=== PATIENT | female | born 1950 | race Caucasian/White ===

== ENCOUNTER 2016-12-13 12:11 | Inpatient (IN) | payer MEDICARE, MEDICAID ==
[2016-12-13] VITALS (25 sets, daily range): BP systolic 74–137; BP diastolic 36–109; PULSE 109–128; RESP 14–37; O2SAT 91–100
[~2016-12-13] VITALS: Ht 157.5 cm; Wt 72.5 kg
[~2016-12-13 12:11] MED LIST: ACET325T46 PO; ACET325T51 PO; ALBU8.5H2 IH; BISA10SU9 RC; BISA5TAB8 PO; CALC-766 PO; DIPH-464 PO; IBUP-1827 PO; LAMO200T2 PO; LOPE2CAP PO; LORA0.5T PO; MAGN250T37 PO; MAGN400O4 PO; MONT10TA23 PO; OMEP-113 PO; OXYC1TAB24 PO; PRA20 PO; PRAZ1CAP2 PO; RISP2TAB3 PO; SENN8.6T17 PO; TOPI50TA88 PO; TRAZ-118 PO; VENL150C PO; VENL75CA PO
--- NOTE | 2016-12-13 12:22 | ED.REPORT ---
HPI-Chest Pain 40 and Over Date of Service Dec 13, 2016 ED Provider: Noe Vanegas MD Patient is a 66 year old female with a hx of DM who presents to the ED via EMS from [facility] for sudden onset back pain this afternoon. This was followed by chest pain, nausea, and diaphoresis. Nursing staff state the pt went pale and had a bp of 100. When EMS arrived, she was tachycardic and still pale. She was given ASA and nitro x2 with relief. Patient denies abdominal pain , cough, vomiting, or any other symptoms. Pt is a difficult historian. Nursing Notes Stated Complaint: CHEST PAIN Nursing Notes Reviewed: Yes Allergies: Coded Allergies: Nut Tree (Verified Allergy, Unknown, 12/13/16) amitriptyline (Verified Allergy, Unknown, 12/13/16) codeine (Verified Allergy, Unknown, 12/13/16) egg (Verified Allergy, Unknown, 12/13/16) erythromycin base (Verified Allergy, Unknown, 12/13/16) fluticasone (Verified Allergy, Unknown, 12/13/16) lithium (Verified Allergy, Unknown, 12/13/16) salmeterol (Verified Allergy, Unknown, 12/13/16) sumatriptan (Verified Allergy, Unknown, 12/13/16) Scheduled Amlodipine (Amlodipine) 5 Mg Tablet 5 MG PO QAM Lamotrigine (Lamotrigine) 200 Mg Tablet 200 MG PO QAM Lorazepam (Lorazepam) 0.5 Mg Tablet 0.5 MG PO BIDWM Meloxicam (Meloxicam) 7.5 Mg Tablet 7.5 MG PO DAILYWM Montelukast (Montelukast) 10 Mg Tablet 10 MG PO DAILYWD Omeprazole (Omeprazole) 20 Mg Capsule.dr 20 MG PO QAM Oxybutynin Chloride (Oxybutynin Chloride) 5 Mg Tablet 5 MG PO DAILYWD Pravastatin (Pravachol) 20 Mg Tab 20 MG PO DAILYWD Prazosin (Prazosin) 1 Mg Capsule 1 MG PO DAILYWD Risperidone (Risperidone) 2 Mg Tablet 2 MG PO DAILYWD Topiramate (Topiramate) 50 Mg Tablet 50 MG PO BIDWM Trazodone (Trazodone) 100 Mg Tablet 200 MG PO HS Venlafaxine ER (Effexor XR) 75 Mg Cap.er.24h 75 MG PO QAM TAKE WITH 150 MG CAP Venlafaxine ER (Effexor XR) 150 Mg Cap.er.24h 150 MG PO QAM TAKEN WITH 75 MG CAP Scheduled PRN Acetaminophen (Acetaminophen) 325 Mg Tablet 325-650 MG PO Q4 PRN PRN For Pain Albuterol HFA (Proair HFA) 8.5 Gm Hfa.aer.ad 2 PUFFS IH Q4 PRN PRN For Shortness of Breath Aspirin/Acetaminophen/Caffeine (Bccizwq-Puighpyajsmka-Ysmt Tab) 250 Mg-250 Mg- 65 Mg Tablet 1 EACH PO Q6H PRN PRN For Headache Calcium Carbonate (Tums) 500 Mg Tab.chew 1,000 MG PO Q4H PRN PRN For Dyspepsia or Heartburn Docusate Sodium (Colace) 100 Mg Capsule 100 MG PO HS PRN PRN For Constipation Loperamide (Loperamide) 2 Mg Capsule 2 MG PO Q4 PRN PRN For Diarrhea or Loose Stool Prochlorperazine Maleate (Prochlorperazine) 10 Mg Tablet 10 MG PO Q12H PRN PRN For Nausea/Vomiting Sennosides (Senna) 8.6 Mg Tablet 8.6 MG PO DAILY PRN PRN For Constipation diphenhydrAMINE HCl (Benadryl) 25 Mg Capsule 50 MG PO DIRECTED PRN PRN PEANUT EXPOSURE oxyCODONE-Acetaminophen 5-325 mg (oxyCODONE-Acetaminophen 5-325 mg) 1 Each Tablet 0.5-1 TAB PO Q8H PRN PRN For Pain General Time Seen by MD: 12:21 Chief Complaint Back pain Hx Obtained From: Patient, EMS Arrived By: Ambulance Sudden in Onset?: Yes Onset Occurred: Just prior to arrival Symptom Duration: Since onset Similar Sx Previous: No Risk Factors )( CAD Risk Stratification Diabetes mellitus Hypertension Risk factors reviewed )( TAD Risk Stratification HypertensionNo Risk factors reviewed )( PE Risk Stratification No , No Previous DVT, No Previous PE Risk factors reviewed Past Medical History Past Medical History Anxiety Bipolar disorder PTSD Hypertension/Hypotension -- pt not on any blood pressure meds Hip bursisits Tension headaches/migraines Chronic pain syndrome depression Reports: Asthma, Diabetes mellitus Past Surgical History none reported Smoking History Unknown if Ever Smoker Social History Other Social History: Ambulatory Status Independent Review of Systems Respiratory: Denies: Non-productive cough Cardiovascular: Reports: Chest pain GI: Reports: Nausea, Denies: Abdominal pain, Vomiting Musculoskeletal: Reports: Back pain Skin: Reports Diaphoresis Complete sys rev & neg: except as marked. Physical Exam Initial Vital Signs Vital Signs (First) Date Time Temp Pulse Resp B/P Pulse Ox O2 Delivery O2 Flow Rate FiO2 12/13/16 12:26 39.6 115 28 137/64 98 Room Air Initial VS: Reviewed, Vital signs abnormal Head / Eyes: Atraumatic, Normocephalic Neck: Full range of motion Skin: Warm, Dry Neurologic: Alert, Oriented, Nonfocal Psychiatric: Behavior normal General/Constitutional: Awake, Alert Respiratory / Chest: Atraumatic, Breath sounds NL, Breath sounds = bilat, No respiratory distress Heart Rate / Rhythm: Positive: Tachycardia Holosystolic murmur at L upper sternal border Abdomen: Atraumatic, Soft, Non-tender Interpretation & Diagnostics Lab Results Interpretation Result Diagram: 12/13/16 1225 12/13/16 1225 Test 12/13/16 12:25 12/13/16 12:50 12/13/16 14:30 White Blood Count 3.5th/mm3 (3.8-10.1) Red Blood Count 3.88mil/mm3 (3.90-5.20) Hemoglobin 11.8g/dL (12.0-15.6) Hematocrit 35.2% (35.0-46.0) Mean Corpuscular Volume 90.7fL (81-100) Mean Corpuscular Hemoglobin 30.4pg (27.0-35.0) Mean Corpuscular Hemoglobin Concent 33.5% (32.0-37.0) Red Cell Distribution Width 12.7% (12.3-15.4) Platelet Count 106bil/L (150-400) Neutrophils (%) (Auto) 48% (40-74) Lymphocytes (%) (Auto) 20% (14-46) Monocytes (%) (Auto) 1% (4-12) Eosinophils (%) (Auto) 0% (0-5) Basophils (%) (Auto) 0% (0-3) Band Neutrophils % 31% (1-5) Prothrombin Time 10.8sec (8.1-12.5) Prothromb Time International Ratio 1.01ratio Sodium Level 142mEq/L (134-144) Potassium Level 3.9mEq/L (3.5-5.2) Chloride Level 102mEq/L (97-108) Carbon Dioxide Level 16mmol/L (18-29) Blood Urea Nitrogen 35mg/dL (8-27) Creatinine 1.85mg/dL (0.57-1.00) Estimat Glomerular Filtration Rate 39mL/min (>59) Glucose Level 171mg/dL (60-99) Calcium Level 10.0mg/dL (8.5-10.1) Magnesium Level 1.6mg/dL (1.6-2.6) Total Bilirubin 0.5mg/dL (0.0-1.2) Aspartate Amino Transf (AST/SGOT) 104U/L (0-50) Alanine Aminotransferase (ALT/SGPT) 121U/L (0-32) Alkaline Phosphatase 151U/L (25-165) Troponin T < 0.010ug/L (0.0-0.011) Pro-B-Type Natriuretic Peptide 3261pg/mL (0-301) Total Protein 7.8g/dL (6.4-8.4) Albumin 4.1g/dL (3.4-5.0) Lipase 20U/L (13-60) Hold Joel Top Tube Received (Received) Procalcitonin 128.82ng/mL (0.00-0.08) Urine Color Dark yellow (YELLOW) Urine Appearance Hazy (CLEAR,HAZY) Urine pH 6.0 (5.0-8.0) Urine Specific [place] 1.010 (1.003-1.035) Urine Protein 30mg/dL (NEG,TRACE) Urine Glucose (UA) Negativemg/dL (NEGATIVE) Urine Ketones Negativemg/dL (NEGATIVE) Urine Occult Blood Large (NEGATIVE) Urine Nitrite Positive (NEGATIVE) Urine Bilirubin Negative (NEGATIVE) Urine Urobilinogen Normalmg/dL (NORMAL) Urine Leukocyte Esterase Small (NEGATIVE) Urine RBC 11-50/hpf (0-2) Urine WBC 11-50/hpf (0-5) Urine Epithelial Cells Occasional/hpf (NONE-MOD) Urine Crystals None seen (NONE SEEN) Urine Bacteria Many/hpf (NONE-FEW) Urine Hyaline Casts None/lpf (NONE) Urine Granular Casts None seen (NONE SEEN) Urine Waxy Casts None seen (NONE SEEN) Urine Red Blood Cell Casts None seen (NONE SEEN) Urine White Blood Cell Casts None seen (NONE SEEN) Urine Mucus Present (None Seen) Urine Trichomonas None seen (NONE SEEN) Urine Yeast None (NONE SEEN) Urinalysis Comment None Urine Culture Reflexed Indicated ECG Interpretation ECG Interpretation: sinus tachy rate 117 RBBB poor quality no clear ST, T changes T wave inversions in V1 and V2 T wave inversions in V1 on prior Time: 12:25 Interpreted by: ED physician X-Ray Chest Interpretation Chest Xray Interpretation: IMPRESSION: No acute disease. Dictated by: Kelvin Flynn M.D. on 12/13/2016 at 12:16 Approved by: Kelvin Flynn M.D. on 12/13/2016 at 12:17 View: Portable, 1 view Interpretation / Wet Read by: Interpret - Radiologist CT Chest Interpretation IMPRESSION: 1. Obstructive right ureterolithiasis with moderate to severe right hydronephrosis and perinephric fat stranding consistent with calyceal rupture. This finding was discussed with Dr. Prasad Valente at 1:50 PM on 12/13/16. 2. No aortic dissection or aneurysmal dilatation. 3. No central pulmonary embolus. 4. Fluid and gas-filled esophagus which may be associated with reflux or lower esophageal sphincter dysfunction. 5. Bilateral nonobstructing nephrolithiasis. Dictated by: Anu Luevano M.D. on 12/13/2016 at 13:42 Approved by: Anu Luevano M.D. on 12/13/2016 at 14:01 Study type: CT pulm angiogram Interpretation / Wet Read by: Interpret - Radiologist, Milagro w radiologist Re-Eval/Medical Decision Med Decision/Clinical Course 66-year-old female presenting from [facility] with back pain radiating to her chest which reportedly resolved with nitroglycerin. Poor historian. CT angio chest abdomen was performed given her tachycardia and her chest pain which showed no evidence of PE or dissection though she does have a 4 mm right-sided ureteral stone with moderate to severe hydronephrosis. She also has UTI and is septic. She will be admitted to the hospital for infected kidney stone. Urology to see and take to the OR for cystoscopy and stent placement. Zosyn given. 2 L normal saline given. Admitted to hospitalist service. Time of Eval: 14:02 Re-Evaluation/Progress Note: Rechecked pt. Discussed plan for admission. Patient understands and agrees with plan. All questions addressed at this time. Consultation #1: Referral / Consult Name: Kev Pittman MD Consulted With: Cardiology Call Returned at: 14:08 Note: Discussed pt's case. Does not need to be admitted from cardiology standpoint. Consultation #2: Referral / Consult Name: Dale Morales MD Consulted With: Urology Call Returned at: 14:45 Motion Picture Photographer: Will see patient, Agrees with eval, Agrees with plan Note: Discussed pt's case. Start Zosyn and keep NPO. Counseled Regarding: Diagnosis, Lab results, Need for admission Discharge & Departure Primary Impression: Sepsis Additional Impressions: Kidney stone UTI (urinary tract infection) Urinary tract infection type: site unspecified Hematuria presence: without hematuria Qualified Code: N39.0 - Urinary tract infection, site not specified Disposition: ADMITTED TO HOSPITAL Discharge Condition All VS Reviewed: Yes Condition: Stable Referrals: Zackary Hunter MD (PCP) Crit Care Except Billable Proc Time Spent: 30-74 minutes Services Performed: Patient management by me, Time spent at bedside, Reviewing test results, Reviewing imaging, Discussing patient care, Documentation in record Critical Care Notes: 35 minutes Scribe Attestation Portions of this note were transcribed by Nata Teague. I, Dr. Vanegas personally performed the history, physical exam and medical decision-making; I reviewed and confirmed the accuracy of the information in the transcribed note. Signed by: Marimar Gonzalez, 12/13/16 copies to: Zackary Hunter MD, Ben M MD Dec 13, 2016 12:22 NATA TEAGUE Dec 13, 2016 12:31
[2016-12-13] MEDS ORDERED: 0.9% Sodium Chloride 1,000 ML IV ONE (12:29)
[2016-12-13] MEDS ORDERED: Ondansetron 2 mg/mL 2 mL Inj IVPUSH ONE (12:30)
[2016-12-13 12:54] LABS: BASOPHILS % (AUTO) 0 % (0-3); Mean Corpuscular Hemoglobin 30.4 pg (27.0-35.0); Mean Corpuscular Volume 90.7 fL (81-100); Platelet Count 106 bil/L (150-400)
[2016-12-13 12:59] LABS: INR 1.01 ratio
[2016-12-13 13:13] LABS: TROPONIN T < 0.010 ug/L (0.0-0.011)
--- NOTE | 2016-12-13 13:18 | DRSVH ---
PROCEDURE: X-RAY CHEST ONE VIEW, PORTABLE ([id number]) INDICATIONS: chest pain TECHNIQUE: One view of the chest was acquired. COMPARISON: [facility], CR, XR CHEST 2VW, 09/29/2015, 11:43. FINDINGS: Surgical changes and devices: None. Lungs and pleura: No pleural effusions or pneumothorax. Lungs are clear. Mediastinum: Mediastinal contours appear normal. Heart size is normal. Bones and chest wall: No suspicious bony lesions. Overlying soft tissues appear unremarkable. IMPRESSION: No acute disease. Dictated by: Kelvin Flynn M.D. on 12/13/2016 at 12:16 Approved by: Kelvin Flynn M.D. on 12/13/2016 at 12:17
[2016-12-13 13:22] LABS: Lipase 20 U/L (13-60); Magnesium 1.6 mg/dL (1.6-2.6)
[2016-12-13 13:38] LABS: EOSINOPHILS % (AUTO) 0 % (0-5); MONOCYTES % (AUTO) 1 % (4-12); NEUTROPHILS % (AUTO) 48 % (40-74)
--- NOTE | 2016-12-13 14:02 | DRSVH ---
PROCEDURE: CT ANG CHEST/ABD W/WO CONTRAST ([id number]) INDICATIONS: r/o PE/dissection TECHNIQUE: Precontrast 5 mm thick sections acquired from the lung apices to the iliac crests. After the adminis tration of intravenous contrast, 3 mm thick sections again acquired from the lung apices to the iliac crests. 3-dimensional maximum intensity projection (MIP) oblique sagittal and coronal reformats wer e then acquired, and/or 3-dimensional volume rendering reformats. For radiation dose reduction, the following was used: automated exposure control. COMPARISON: None. FINDINGS: Image quality: Excellent. AORTA: Dense atheromatous calcification is present throughout the descending thoracic and abdominal aorta. N o aortic dissection. No intramural hematoma. No aneurysmal dilatation. No aortic wall thickening or p eriaortic fat stranding. CHEST: Lungs and pleura: No acute airspace opacities. No pleural effusions or pneumothorax. Central and p eripheral airways are patent and normal in caliber. Mediastinum: Heart size is normal. No pericardial effusion. No mediastinal or hilar adenopathy by size criteria. Central pulmonary arteries are normal in size. No pulmonary arterial filling defects to suggest central pulmonary embolus. The esophagus is patulous and fluid and gas filled. No hiatal h ernia. Bones and chest wall: No axillary adenopathy by size criteria. Thyroid gland is unremarkable. No s uspicious bony lesions. No vertebral body compression fractures. ABDOMEN: Vasculature: Celiac trunk and mesenteric arteries are patent. Renal arteries are also patent. Solid organs: Liver and spleen are normal in size. Gallbladder is unremarkable. Biliary system is non dilated. Pancreas enhances normally. No adrenal nodules. The left kidney demonstrates normal si ze. No hydronephrosis. There are bilateral nonobstructing 2-4 mm diameter calculi. There is moderate to severe right hydronephrosis. There is marked right perinephric fat stranding. There is moderate ri ght ureteral dilatation throughout the course of the ureter. There is an obstructing 4 mm in diameter calculus at the right ureterovesicular junction (series 6, image 30). The bladder is fluid-filled an d thin-walled. No bladder calculi. Peritoneum and bowel: No free fluid or air. Bowel loops are normal in caliber and wall thickness. Nodes and vessels: No retroperitoneal or mesenteric adenopathy by size criteria. Inferior vena cava is normal in morphology. Bones: No suspicious bony lesions. No vertebral body compression fractures. Miscellaneous: No ventral hernias. IMPRESSION: 1. Obstructive right ureterolithiasis with moderate to severe right hydronephrosis and perinephric fa t stranding consistent with calyceal rupture. This finding was discussed with Dr. Prasad Valente at 1:50 PM on 12/13/16. 2. No aortic dissection or aneurysmal dilatation. 3. No central pulmonary embolus. 4. Fluid and gas-filled esophagus which may be associated with reflux or lower esophageal sphincter d ysfunction. 5. Bilateral nonobstructing nephrolithiasis. Dictated by: Anu Luevano M.D. on 12/13/2016 at 13:42 Approved by: Anu Luevano M.D. on 12/13/2016 at 14:01
[2016-12-13] MEDS ORDERED: ASPI-1148 PO (14:37)
[2016-12-13] MEDS ORDERED: LAMO200T2 PO (14:37)
[2016-12-13] MEDS ORDERED: PROC10TA PO (14:37)
[2016-12-13] MEDS ORDERED: DOCU-41 PO (14:37)
[2016-12-13] MEDS ORDERED: OXYB5TAB10 PO (14:37)
[2016-12-13] MEDS ORDERED: OMEP20CA11 PO (14:37)
[2016-12-13] MEDS ORDERED: AMLO5TAB2 PO (14:37)
[2016-12-13] MEDS ORDERED: MELO-259 PO (14:37)
[2016-12-13] MEDS ORDERED: CALC500T9 PO (14:39)
[2016-12-13] MEDS ORDERED: SENN-133 PO (14:39)
[2016-12-13] MEDS ORDERED: DIPH25CA6 PO (14:39)
[2016-12-13] MEDS ORDERED: Piperacillin-Tazo 3.375 Gm Inj 3.375 GM in Dextrose 5% Minibag Plus 50 ML IV ONE (14:40)
[2016-12-13 14:56] LABS: APPEARANCE,URINE HAZY (CLEAR,HAZY); COLOR,URINE DARK YELLOW (YELLOW); OCCULT BLOOD,URINE LARGE (NEGATIVE)
[2016-12-13 14:57] LABS: UROBILINOGEN,URINE NORMAL (NORMAL)
[2016-12-13] MEDS ORDERED: Ondansetron 2 mg/mL 2 mL Inj IVPUSH PRN ×3 (15:20→19:45)
[2016-12-13] MEDS ORDERED: Alum-Mag Hydrox-Simeth 30 mL Suspension PO PRN ×2 (15:20→15:55)
[2016-12-13] MEDS ORDERED: Phenylephrine/NS 100 mCg/mL 10 mL Syringe IVPUSH ONE (16:00)
[2016-12-13] MEDS ORDERED: Propofol 10,000 mCg/mL 20 mL Inj ONE (16:00)
[2016-12-13] MEDS ORDERED: Succinylcholine Chloride 20 mg/mL 5 mL Inj ONE (16:00)
[2016-12-13] MEDS ORDERED: EPHEDrine/NS 5 mg/mL 5 mL Syringe ONE (16:00)
[2016-12-13] MEDS ORDERED: Vasopressin 20 Unit/mL Inj ONE (16:00)
--- NOTE | 2016-12-13 16:06 | PCM.HPMED ---
Subjective Date of Service Dec 13, 2016 Primary Provider: Admitting Physician: Primary Care Physician: Zackary Hunter MD Attending Physician: Admit Status: From the Emergency Department, Full Admit, [facility] Telemetry Chief Complaint: Back pain History of Present Illness: This is a 66-year-old female who presented to the emergency room for back and chest pain today. She comes from an assisted living facility, where the heart use. She has been there for some time and has multiple psychiatric diagnoses including bipolar and PTSD as well as chronic anxiety and depression. She is a very vague historian and unable to answer many questions but does note that she was having severe back pain which is described midline starting today. She also had some chest pain. She was sent to the emergency department by ambulance and there was found to be hypotensive and slightly diaphoretic and pale in appearance. An ECG was obtained to rule out ACS was unremarkable and Nitropaste was placed on her chest and she did improve. Troponins were unremarkable ultimately urine dip was positive with infection and the CT indicated obstructive kidney stone consistent with hydronephrosis. She was given 2 L of fluid for relative hypotension and Zosyn 3.375 g IV. The case was discussed with urology, Dr. Morales, who requested nothing by mouth status for probable cystoscopy and stent placement later this afternoon. The patient cannot state what year it is. She does know she is at the hospital but says [facility]. She does have a cold with her indicating resuscitation and full level of treatment. Subjective not otherwise obtainable. Review of Systems: Review of systems is not obtainable due to her cognitive impairment. Allergies Coded Allergies: Nut Tree (Verified Allergy, Unknown, 12/13/16) amitriptyline (Verified Allergy, Unknown, 12/13/16) codeine (Verified Allergy, Unknown, 12/13/16) egg (Verified Allergy, Unknown, 12/13/16) erythromycin base (Verified Allergy, Unknown, 12/13/16) fluticasone (Verified Allergy, Unknown, 12/13/16) lithium (Verified Allergy, Unknown, 12/13/16) salmeterol (Verified Allergy, Unknown, 12/13/16) sumatriptan (Verified Allergy, Unknown, 12/13/16) Home Medications Amlodipine (Amlodipine) 5 Mg Tablet 5 MG PO QAM Lamotrigine (Lamotrigine) 200 Mg Tablet 200 MG PO QAM Lorazepam (Lorazepam) 0.5 Mg Tablet 0.5 MG PO BIDWM Meloxicam (Meloxicam) 7.5 Mg Tablet 7.5 MG PO DAILYWM Montelukast (Montelukast) 10 Mg Tablet 10 MG PO DAILYWD Omeprazole (Omeprazole) 20 Mg Capsule.dr 20 MG PO QAM Oxybutynin Chloride (Oxybutynin Chloride) 5 Mg Tablet 5 MG PO DAILYWD Pravastatin (Pravachol) 20 Mg Tab 20 MG PO DAILYWD Prazosin (Prazosin) 1 Mg Capsule 1 MG PO DAILYWD Risperidone (Risperidone) 2 Mg Tablet 2 MG PO DAILYWD Topiramate (Topiramate) 50 Mg Tablet 50 MG PO BIDWM Trazodone (Trazodone) 100 Mg Tablet 200 MG PO HS Venlafaxine ER (Effexor XR) 75 Mg Cap.er.24h 75 MG PO QAM TAKE WITH 150 MG CAP Venlafaxine ER (Effexor XR) 150 Mg Cap.er.24h 150 MG PO QAM TAKEN WITH 75 MG CAP Scheduled PRN Acetaminophen (Acetaminophen) 325 Mg Tablet 325-650 MG PO Q4 PRN PRN For Pain Albuterol HFA (Proair HFA) 8.5 Gm Hfa.aer.ad 2 PUFFS IH Q4 PRN PRN For Shortness of Breath Aspirin/Acetaminophen/Caffeine (Sgzpzjg-Pwzbulyzryyjz-Gory Tab) 250 Mg-250 Mg- 65 Mg Tablet 1 EACH PO Q6H PRN PRN For Headache Calcium Carbonate (Tums) 500 Mg Tab.chew 1,000 MG PO Q4H PRN PRN For Dyspepsia or Heartburn Docusate Sodium (Colace) 100 Mg Capsule 100 MG PO HS PRN PRN For Constipation Loperamide (Loperamide) 2 Mg Capsule 2 MG PO Q4 PRN PRN For Diarrhea or Loose Stool Prochlorperazine Maleate (Prochlorperazine) 10 Mg Tablet 10 MG PO Q12H PRN PRN For Nausea/Vomiting Sennosides (Senna) 8.6 Mg Tablet 8.6 MG PO DAILY PRN PRN For Constipation diphenhydrAMINE HCl (Benadryl) 25 Mg Capsule 50 MG PO DIRECTED PRN PRN PEANUT EXPOSURE oxyCODONE-Acetaminophen 5-325 mg (oxyCODONE-Acetaminophen 5-325 mg) 1 Each Tablet 0.5-1 TAB PO Q8H PRN PRN For Pain PMH Her medical records Hypertension Anxiety Bipolar Chronic recurrent migraines Chronic pain syndrome. Chronic depression. Chronic lower back pain Surgical History patient is unable to provide details Family History Patient is unable to provide details Social History Occupation: none Hx Alcohol Use: No Hx Substance Use: No Smoking Status: Unknown if Ever Smoker Living Arrangement: Assisted Living Exam Vital Signs Vital Sign - Last Date Time Temp Pulse Resp B/P Pulse Ox O2 Delivery O2 Flow Rate FiO2 12/13/16 14:42 109 14 110/45 94 Room Air 12/13/16 12:26 39.6 Exam Oriented 1. Flat affect. Very slow to answer questions. No distress. Fluent speech. Flat affect. Normal skull. Normal nose and ears. Anicteric sclera, symmetric pupils Oropharynx is unremarkable, no facial droop. Neck is supple, normal thyroid. No adenopathy. Lungs are clear, normal effort rate. Heart is regular without murmur gallop or rub. Abdomen soft, nondistended or tender. Extremities are free of pedal edema. Good radial and pedal pulses. Skin is free of rash, lesions. No petechiae or ecchymosis. Joints are grossly normal. Cranial nerves are grossly normal. Motor strength is normal in all extremities. Normal muscular tone. Lab and Diagnostics Result Diagram: 12/13/16 1225 12/13/16 1225 X-Rays, CTs and MRIs Chest x-ray unremarkable Abdominal CT is notable for right ureter stone was significant moderate to severe hydronephrosis. 12-lead ECG Sinus tachycardia with right bundle branch block Assessment & Plan Nephrolithiasis with a right obstructive hydronephrosis, present on admission and active. The plan is urology consult and NPO status for cystoscopy and stenting to decompress. Pyelonephritis, present on admission and active. Plan as above and Zosyn, urine and blood cultures. Sepsis, present on admission and active. SIRS criteria met, source is pyelonephritis. Concurrent lactic acidosis. Plan is to continue IV fluids, trend lactic acid, obtain blood and urine cultures, decompress right ureter. Lactic acidosis, present on admission and active. Plan is as above and fluid resuscitate, Antibiotics, cultures and trend lactic acids. Acute kidney injury, present on admission and active. Fluid resuscitation, decompression of right ureter for obstructive component and avoidance of nephrotoxic agents while fluid resuscitating. Essential hypertension, present on admission and stable. Hold medications while fluid resuscitating . Chronic anxiety and depression, present on admission. Resume usual medications in the next 12-24 hours. Bipolar, present on admission and active. Plan as above resume medications next 12-24 hours Acute septic encephalopathy, present on admission and active. Follow clinically and treated sepsis and pyelonephritis as above. She is full resuscitation per her POLST. Admitted to Inpatient status, with expected length of stable over 2 nights. Pain Evaluation: Adequate Pain Control Resuscitation Status: CPR: Attempt Resuscitation Time spent 45 minutes Zackary Hunter MD Dec 13, 2016 16:05
[2016-12-13] MEDS: Heparin 5,000 Unit/mL Inj SUBQ SCH (17:45)
--- NOTE | 2016-12-13 18:01 | PCM.HPANE ---
Patient Data Date of Service: Dec 13, 2016 (1800) Surgeon Admitting Provider:Zackary Hunter MD Attending Provider:Zackary Hunter MD Primary Care Physician:Zackary Hunter MD Other Provider: Reason for Visit Nephrolithiasis, Uti Ht/WT & BMI Weight (Kilograms): 70 Body Mass Index Allergies Coded Allergies: Nut Tree (Verified Allergy, Unknown, 12/13/16) amitriptyline (Verified Allergy, Unknown, 12/13/16) codeine (Verified Allergy, Unknown, 12/13/16) egg (Verified Allergy, Unknown, 12/13/16) erythromycin base (Verified Allergy, Unknown, 12/13/16) fluticasone (Verified Allergy, Unknown, 12/13/16) lithium (Verified Allergy, Unknown, 12/13/16) salmeterol (Verified Allergy, Unknown, 12/13/16) sumatriptan (Verified Allergy, Unknown, 12/13/16) Past Anesthesia History Anesthesia History: Positive for:: Anesthesia Reactions (unknown) Diabetes History Hx Diabetes?: Yes MRSA MRSA: No Medications Reported Medications Sennosides (Senna)8.6 Mg Tablet8.6 Mg PO DAILY PRN For Constipation 12/13/16 Calcium Carbonate (Tums)500 Mg Tab.chew1,000 Mg PO Q4H PRN For Dyspepsia or Heartburn 30 Days 12/13/16 diphenhydrAMINE HCl (Benadryl)25 Mg Joogohw65 Mg PO DIRECTED PRN PEANUT EXPOSURE Ref 0 12/13/16 Prochlorperazine Maleate (Prochlorperazine)10 Mg Sqvler55 Mg PO Q12H PRN For Nausea/Vomiting Ref 0 12/13/16 Aspirin/Acetaminophen/Caffeine (Hiaupgf-Mmtstiwxpqjej-Gxwl Tab)250 Mg-250 Mg-65 Mg Tablet1 Each PO Q6H PRN For Headache 12/13/16 Docusate Sodium (Colace)100 Mg Elopsci695 Mg PO HS PRN For Constipation Ref 0 12/13/16 Oxybutynin Chloride 5 Mg Tablet5 Mg PO DAILYWD Ref 0 12/13/16 Omeprazole 20 Mg Capsule.dr20 Mg PO QAM Ref 0 12/13/16 Meloxicam 7.5 Mg Tablet7.5 Mg PO DAILYWM 30 Days Ref 0 12/13/16 Lamotrigine 200 Mg Twmosv172 Mg PO QAM Ref 0 12/13/16 Amlodipine 5 Mg Tablet5 Mg PO QAM Ref 0 12/13/16 Albuterol HFA (Proair HFA)8.5 Gm Hfa.aer.ad2 Puffs IH Q4 PRN For Shortness of Breath #1 INHALER 09/25/14 oxyCODONE-Acetaminophen 5-325 mg 1 Each Tablet0.5-1 Tab PO Q8H PRN For Pain Ref 0 09/25/14 Lorazepam 0.5 Mg Tablet0.5 Mg PO BIDWM Ref 0 09/25/14 Loperamide 2 Mg Capsule2 Mg PO Q4 PRN For Diarrhea or Loose Stool 09/25/14 Acetaminophen 325 Mg Mullzh689-407 Mg PO Q4 PRN For Pain 09/25/14 Venlafaxine ER (Effexor XR)150 Mg Cap.er.91x569 Mg PO QAM #30 CAPSULE Ref 0 TAKEN WITH 75 MG CAP 09/25/14 Venlafaxine ER (Effexor XR)75 Mg Cap.er.24h75 Mg PO QAM #30 CAPSULE Ref 0 TAKE WITH 150 MG CAP 09/25/14 Trazodone 100 Mg Sfxnjc419 Mg PO HS #30 TABLET Ref 0 09/25/14 Topiramate 50 Mg Nqacej84 Mg PO BIDWM 30 Days Ref 0 09/25/14 Risperidone 2 Mg Tablet2 Mg PO DAILYWD 30 Days Ref 0 09/25/14 Prazosin 1 Mg Capsule1 Mg PO DAILYWD 30 Days 09/25/14 Pravastatin (Pravachol)20 Mg Tab20 Mg PO DAILYWD 30 Days Ref 0 09/25/14 Montelukast 10 Mg Xcewkc85 Mg PO DAILYWD 30 Days Ref 0 09/25/14 Discontinued Reported Medications Sennosides (Senna Laxative)8.6 Mg Tablet8.6 Mg PO DAILY PRN For Constipation 09/25/14 Magnesium Hydroxide (Milk of Magnesia)400 Mg/5 Ml Oral.ngnq960 Mg PO PRN PRN For Constipation 09/25/14 Acetaminophen (Mapap)325 Mg Gnwjph106 Mg PO Q4 PRN For Pain 09/25/14 Ibuprofen 600 Mg Zadpmy124 Mg PO BID PRN For Pain Ref 0 09/25/14 diphenhydrAMINE HCl (Benadryl)50 Mg Uqookia79 Mg PO DIRECTED PRN PEANUT EXPOSURE Ref 0 09/25/14 Calcium Carbonate (Calcium)500 Mg Tab.chew1,000 Mg PO Q4 PRN CONSTIP 09/25/14 Bisacodyl 5 Mg Tablet.dr5 Mg PO DAILY PRN For Constipation 30 Days 09/25/14 Bisacodyl (Bisacodyl Rectal)10 Mg Supp.rect10 Mg RC DAILY PRN For Constipation 30 Days Ref 0 09/25/14 Omeprazole Magnesium (Omeprazole)20 Mg Capsule.dr20 Mg PO DAILYAC 30 Days Ref 0 09/25/14 Magnesium Oxide 250 Mg Wstlha109 Mg PO HS 09/25/14 Lorazepam 0.5 Mg Tablet0.5 Mg PO BID Ref 0 ROUTINELY 09/25/14 Lamotrigine 200 Mg Kimics398 Mg PO DAILY #30 TABLET Ref 0 09/25/14 Ibuprofen 600 Mg Lhtpiz780 Mg PO TIDWM PRN For Pain Ref 0 09/25/14 History History of ENT Problems?: No HEENT History: Denies:: Abnormal Airway Denture Type: None Teeth Condition: Within Normal Limits Hx of Heart Problems?: No Cardiovascular History: Positive for:: Hypertension Denies:: Congestive Heart Failure Hx of Respiratory Problem?: No Respiratory History: Denies:: Tuberculosis Hx Neurologic Problems?: Yes (anxiety, PTSD, Bipolar, currently not oriented) Hx of GI Problems?: No Hx of Problems?: Yes (urosepsis) Hx Musculoskeletal Problems?: No Hx of Psycho/Social Problems?: Yes Psycho Social History: Positive for:: Anxiety Bipolar Disorder Hx Depression Hx Surgeries?: Yes History Blood Transfusions: Positive for:: Accept Blood Products? Blood Transfusions Denies:: Blood Transfuse Reaction Hx Diabetes: Yes Occupation: none Hx Alcohol Use: NoHx Substance Use: No Smoking Status: Unknown if Ever Smoker Have You Smoked inLast 12 mo: No Stop/Bang Treated for Sleep Apnea?: No Do You Have a CPAP Machine?: No S-Snoring: Do You Snore Loudly: Yes T-Tired: feel tired, fatigued: Yes O-Obsered: Observed not breath: Yes P-Blood Pressure: treated: Yes B- Body Mass Index > 35 kg/m2: No A- Age over 50: Yes N- Neck Large Circumference: No G- Gender Male: No KALEB Total Score: 4 Risk Assessment Category Category 1A: Patient has history of documented sleep apnea, and HAS NOT received any narcotic, sedative or anesthesia administration during this stay. Category 1B: Patient has history of documented sleep apnea, and HAS received any narcotic , sedative or anesthesia administration during this stay Category 2: Patient has SUSPECTED Obstructive Sleep Apnea, and HAS received any narcotic , sedative or anesthesia administration during this stay. Category 3: Patient has SUSPECTED Obstructive Sleep Apnea and HAS NOT received narcotic, sedative or anesthesia administration during this stay. Category 4: Outpatient in Procedural Areas with known sleep apnea or who screen positive for High Risk via the STOP/BANG questionnaire. Exam Exam Vital Signs Vital Signs Date Time Temp Pulse Resp B/P Pulse Ox O2 Delivery O2 Flow Rate FiO2 12/13/16 17:45 38.6 126 18 99/52 96 Room Air 12/13/16 16:45 114 108/48 95 Room Air 12/13/16 14:42 109 14 110/45 94 Room Air 12/13/16 12:26 39.6 115 28 137/64 98 Room Air General Appearance: Alert, Oriented X3, Cooperative HEENT/AIRWAY: Other (unable to assess) Lungs: Clear to Auscultation Heart: Exam Unremarkable Meds/Labs/Diagnostics Admission Meds Current Medications Sodium Chloride (Normal Saline) 1,000 ml @ 0 mls/hr Q0M ONCE IV Last administered on 12/13/16 12:48; Start 12/13/16 at 12:29; Stop 12/13/16 at 12:32 ; Status DC Ondansetron HCl 4 mg 4 mg ONCE ONCE IVPUSH Last administered on 12/13/16 12: 48; Start 12/13/16 at 12:30; Stop 12/13/16 at 12:32; Status DC Piperacillin Sod/ Tazobactam Sod/ Dextrose/Water (Zosyn 3.375 Gm Inj/D5W Minibag Plus) 50 ml @ 100 mls/hr ONCE ONCE IV Last administered on 12/13/16 14:52; Start 12/13/16 at 14:40; Stop 12/13/16 at 15:09; Status DC Labs Test 12/13/16 12:25 12/13/16 12:50 12/13/16 14:30 12/13/16 17:15 White Blood Count 3.5th/mm3 (3.8-10.1) Red Blood Count 3.88mil/mm3 (3.90-5.20) Hemoglobin 11.8g/dL (12.0-15.6) Hematocrit 35.2% (35.0-46.0) Mean Corpuscular Volume 90.7fL (81-100) Mean Corpuscular Hemoglobin 30.4pg (27.0-35.0) Mean Corpuscular Hemoglobin Concent 33.5% (32.0-37.0) Red Cell Distribution Width 12.7% (12.3-15.4) Platelet Count 106bil/L (150-400) Neutrophils (%) (Auto) 48% (40-74) Lymphocytes (%) (Auto) 20% (14-46) Monocytes (%) (Auto) 1% (4-12) Eosinophils (%) (Auto) 0% (0-5) Basophils (%) (Auto) 0% (0-3) Band Neutrophils % 31% (1-5) Prothrombin Time 10.8sec (8.1-12.5) Prothromb Time International Ratio 1.01ratio Sodium Level 142mEq/L (134-144) Potassium Level 3.9mEq/L (3.5-5.2) Chloride Level 102mEq/L (97-108) Carbon Dioxide Level 16mmol/L (18-29) Blood Urea Nitrogen 35mg/dL (8-27) Creatinine 1.85mg/dL (0.57-1.00) Estimat Glomerular Filtration Rate 39mL/min (>59) Glucose Level 171mg/dL (60-99) Calcium Level 10.0mg/dL (8.5-10.1) Magnesium Level 1.6mg/dL (1.6-2.6) Total Bilirubin 0.5mg/dL (0.0-1.2) Aspartate Amino Transf (AST/SGOT) 104U/L (0-50) Alanine Aminotransferase (ALT/SGPT) 121U/L (0-32) Alkaline Phosphatase 151U/L (25-165) Troponin T < 0.010ug/L (0.0-0.011) Pro-B-Type Natriuretic Peptide 3261pg/mL (0-301) Total Protein 7.8g/dL (6.4-8.4) Albumin 4.1g/dL (3.4-5.0) Lipase 20U/L (13-60) Hold Joel Top Tube Received (Received) Procalcitonin 128.82ng/mL (0.00-0.08) Urine Color Dark yellow (YELLOW) Urine Appearance Hazy (CLEAR,HAZY) Urine pH 6.0 (5.0-8.0) Urine Specific [place] 1.010 (1.003-1.035) Urine Protein 30mg/dL (NEG,TRACE) Urine Glucose (UA) Negativemg/dL (NEGATIVE) Urine Ketones Negativemg/dL (NEGATIVE) Urine Occult Blood Large (NEGATIVE) Urine Nitrite Positive (NEGATIVE) Urine Bilirubin Negative (NEGATIVE) Urine Urobilinogen Normalmg/dL (NORMAL) Urine Leukocyte Esterase Small (NEGATIVE) Urine RBC 11-50/hpf (0-2) Urine WBC 11-50/hpf (0-5) Urine Epithelial Cells Occasional/hpf (NONE-MOD) Urine Crystals None seen (NONE SEEN) Urine Bacteria Many/hpf (NONE-FEW) Urine Hyaline Casts None/lpf (NONE) Urine Granular Casts None seen (NONE SEEN) Urine Waxy Casts None seen (NONE SEEN) Urine Red Blood Cell Casts None seen (NONE SEEN) Urine White Blood Cell Casts None seen (NONE SEEN) Urine Mucus Present (None Seen) Urine Trichomonas None seen (NONE SEEN) Urine Yeast None (NONE SEEN) Urinalysis Comment None Urine Culture Reflexed Indicated Plan Impression Patient chart reviewed, patient interviewed and anesthestic plan with risks, benefits, and alternatives discussed, and informed consent obtained. NPO per Anesth. Guidelines: Yes ASA Physical Status: ASA4 Plus Emergency (urosepsis, nonresponsive) Anesthetic Plan: GA Bene/Risks/Altern/Consents: No (phone consent with daughter, but patient deemed emergent surgical candidate due to her deteriorating status) HP Complete Prior to Induction: Yes Juan Thrasher MD Dec 13, 2016 18:01
[2016-12-13] MEDS ORDERED: Lactated Ringer's 1,000 ML IV ONE (18:16)
[2016-12-13] MEDS ORDERED: Iopamidol-300 50 mL Inj IV ONE (18:38)
--- NOTE | 2016-12-13 19:19 | PCM.SURGPO ---
Immediate Operative Note Date of Surgery: Dec 13, 2016 Pre Operative Diagnosis R ureteral calculus, R hydronephrosis, UTI, sepsis Post Operative Diagnosis R ureteral calculus, R hydronephrosis, UTI, sepsis Procedure Cystoscopy and R ureteral stent placement Surgeon and Fundraising Sale Representative Surgeon: Dale Morales MD Assistants: None Findings Cystoscopy revealed no bladder calculi or tumors. Cloudy urine was drained from R renal collecting system. Moderate R hydronephrosis and duplicated R renal collecting system (to R proximal ureter) were seen. R ureteral stent was placed (with proximal pigtail in more dilated lower pole moiety) without difficulty. Complications There were no periprocedural complications identified. Surgical Specimen Removed: Yes Specimen sent to Pathology: No Surgical Specimen description: Urine Cx from R kidney sent to micro lab Anesthetic Administered: GA Grafts, Implants: Other (24cm x 6F R ureteral JJ stent (no string), 18F Todd catheter to straight drainage) Output, Estimated Blood Loss: <5 Blood Admin during surgery: No Additional information Patient to be transferred to ICU. Case discussed with night hospitalist Dr. Alanis. Dale Morales MD Dec 13, 2016 19:19
--- NOTE | 2016-12-13 19:40 | PCM.ANEP1 ---
Post Anesthesia PACU Phase 1 Assessment Vital Signs 123/49, 127, 20, 100%, 38.2 Vital Signs Date Time Temp Pulse Resp B/P Pulse Ox O2 Delivery O2 Flow Rate FiO2 12/13/16 19:35 126 19 103/58 100 OxyMask 6 130/50 12/13/16 19:30 126 30 114/87 99 OxyMask 6 12/13/16 19:25 123 21 116/100 100 Simple Mask 8 12/13/16 19:20 123 19 120/62 100 Simple Mask 8 12/13/16 19:15 38.7 122 18 120/59 99 Simple Mask 8 12/13/16 17:45 38.6 126 18 99/52 96 Room Air 12/13/16 16:45 114 108/48 95 Room Air 12/13/16 14:42 109 14 110/45 94 Room Air 12/13/16 12:26 39.6 115 28 137/64 98 Room Air Anesthetic Administered: GA Level of Alertness: Drowsy, not talking (AT BASELINE) Pain: Yes Nausea or Vomiting: No CV Function & Hydration Stable: No Airway Device: NONE Oxygen Delivery: Simple Mask Lungs: Clear to Auscultation Dermatome Level: Full Sensation Summary HYPOTENSION WITH DURATION OF CASE. ARTERIAL LINE STARTED IN PACU. PACU Phase 2 Assessment Complications: No Follow up Care: No Patient Instructions Provided: N/A Juan Thrasher MD Dec 13, 2016 19:40
--- NOTE | 2016-12-13 19:40 | CONS ---
[address] [address] CONSULTATION REPORT PATIENT: SONI RODRIGUEZ : 1950 MR#: [id number] ADMIT: 12/13/2016 JOB ID: [id number] DATE OF SERVICE: 12/13/2016 CHIEF COMPLAINT: Back pain, nausea, right ureteral calculus, right hydronephrosis, fever. HISTORY OF PRESENT ILLNESS: I was asked by Emergency Department, Dr. Noe Vanegas, to evaluate this 66-year-old female for back pain, nausea, right ureteral calculus, right hydronephrosis, and fever. Unable to obtain history from patient at the bedside as the patient presently has altered mental status. The patient reportedly has been having back pain and comes from assisted living facility. Patient reportedly started having severe back pain starting today in the midline and was found to be hypotensive. Patient was given IV fluid hydration and Zosyn IV in the emergency department. The patient had a fever in the emergency department. The patient reportedly has been having no vomiting. No abdominal pain. No other symptoms. The patient was found have fever of 39.6 degrees Celsius in the emergency department and with tachycardia, heart rate 115, and tachypnea, respiratory rate of 28. The patient had a CT scan of chest with and without IV contrast today showing bilateral nonobstructing 2-4 mm renal calculi, moderate to severe right hydroureteronephrosis, marked right perinephric fat stranding with an obstructing 4 mm right ureterovesical junction calculus. The patient was given IV fluid resuscitation in the emergency department and was given Zosyn IV. The patient admitted by hospitalist, Dr. Zackary Rodriguez to the [facility]. PAST MEDICAL HISTORY: Bipolar disorder, PTSD, chronic anxiety and depression, hypertension, chronic recurrent migraines, chronic pain syndrome, chronic low back pain. PAST SURGICAL HISTORY: Unable to obtain from patient. MEDICATIONS: Present hospital medications: 1. Zosyn IV. 2. Heparin subcu. 3. Maalox p.r.n. 4. Zofran p.r.n. 5. Senokot p.r.n. 6. MiraLAX p.r.n. 7. Tylenol p.r.n. 8. Morphine IV p.r.n. ALLERGIES: 1. NUTS. 2. NUT TREE. 3. AMITRIPTYLINE. 4. CODEINE. 5. EGGS. 6. ERYTHROMYCIN. 7. FLUTICASONE. 8. LITHIUM. 9. SALMETEROL. 10. SUMATRIPTAN. SOCIAL HISTORY: No alcohol use. No substance abuse. Lives in assisted living. FAMILY HISTORY: The patient unable to provide details. REVIEW OF SYSTEMS: Unable to obtain secondary to patient's cognitive impairment and altered mental status. PHYSICAL EXAMINATION: Vital signs: On presentation to the emergency department today at 12:26 p.m. febrile with fever 39.6 degrees Celsius, heart rate 115, respiratory rate 28, BP 137/64. Temperature presently 38.6 degrees Celsius, heart rate 126, respiratory rate 18, BP 99/52, O2 sat 96% on room air. General: Well-developed, well-nourished female in no acute distress. HEENT exam: Head normocephalic, atraumatic. Eyes: Extraocular muscles intact. Neck is supple. Chest: No use of accessory muscles. Nonlabored respirations. No retractions. Abdomen is soft, nondistended, nontender. No palpable masses. No rebound, no guarding. Back: No costovertebral angle tenderness. Skin: Warm and dry. Neurologic examination: Sensation grossly intact to touch. Able to move extremities. Psych examination: Lethargic, flat affect, oriented x1. Skin warm and dry. LABORATORY DATA: White blood cell count 3.5, hematocrit 35.2, platelets 106. Sodium 142, potassium 3.9, chloride 102, carbon dioxide 16, BUN 35, creatinine 1.85. Glucose 171 that was a 12:25 p.m. today. At 2:14 p.m. today, lactic acid elevated at 5.8. At 5:15 p.m. today, lactic acid elevated at 4.5. Urinalysis: 11-50 red blood cells, 11-50 white blood cells, positive nitrites, small leukocyte esterase. MICROBIOLOGY: Urine and blood cultures pending. IMAGING: CT scan as per HPI. ASSESSMENT: Right ureteral calculus, right hydronephrosis with fever, tachycardia with leukopenia with low white blood cell count 3.5, elevated creatinine of 1.85, and elevated lactic acid and lactic acidosis, thus patient has urinary tract infection and sepsis. Risks, benefits and alternatives of surgery were discussed with the patient's daughter, Renee Wesley, over the phone and risks and benefits and alternatives of surgery explained. All questions were answered. The patient's daughter wishes for patient have surgery as recommended. Of note, unable to obtain consent from patient as patient has altered mental status at this time. Thus verbal consent was obtained from patient's daughter, Renee Wesley. The plan is for urgent surgery, specifically cystoscopy and right renal stent placement, in the operating room today. Recommend continue IV broad-spectrum IV antibiotics and IV fluid resuscitation postoperatively. Recommend the following laboratories, including white blood cell count, creatinine, electrolytes, urine and blood culture results. Recommend following the patient closely in the PCC and recommend straining urine and starting Flomax 0.4 mg p.o. daily when patient is stable and not hypotensive. MTDD
[2016-12-13] MEDS ORDERED: Lactated Ringer's 500 ML IV PRN (19:42)
[2016-12-13] MEDS ORDERED: Lactated Ringer's 1,000 ML IV SCH (19:42)
[2016-12-13] MEDS ORDERED: fentaNYL-PF 50 mCg/mL 2 mL Inj IVPUSH PRN (19:45)
[2016-12-13] MEDS ORDERED: EPHEDrine Sulfate 50 mg/mL Inj IVPUSH PRN (19:45)
[2016-12-13] MEDS ORDERED: Dexamethasone 4 mg/mL Inj IVPUSH PRN (19:45)
[2016-12-13] MEDS: Phenylephrine 10,000 mCg/mL Inj IVPUSH PRN ×7 (19:58→20:44)
[2016-12-13] MEDS ORDERED: Phenylephrine/NS-PF 100 mCg/mL 5 mL Syringe IVPUSH ONE (20:10)
[2016-12-13] MEDS ORDERED: Norepineph 8,000 mCg/250 mL NS 8,000 MCG in IV Premix 1 EACH IV SCH (20:12)
[2016-12-13] MEDS ORDERED: Calcium Chl 10% (Gm) Inj 1 GM in Dextrose 5% 100 ML IV ONE (21:10)
--- NOTE | 2016-12-13 21:39 | DRSVH ---
PROCEDURE: X-RAY CHEST ONE VIEW, PORTABLE ([id number]) INDICATIONS: LINE PLACEMENT TECHNIQUE: One view of the chest was acquired. COMPARISON: None. FINDINGS: Surgical changes and devices: Central line has been placed from right internal jugular approach with tip extending inferiorly into the expected position of the atrial caval junction or slightly within the right atrium.. Lungs and pleura: No pleural effusions or pneumothorax. Lungs are clear. Mediastinum: Mediastinal contours appear normal. Heart size is normal. Bones and chest wall: No suspicious bony lesions. Overlying soft tissues appear unremarkable. IMPRESSION: Reduced inspiratory volume, causes crowding of the bronchovascular markings. Central li ne placed with tip in the atrial caval junction or slightly within the right atrium without pneumotho rax. Dictated by: Vincent Baltazar M.D. on 12/13/2016 at 21:37 Approved by: Vincent Baltazar M.D. on 12/13/2016 at 21:38
[2016-12-13] MEDS: 0.9% Sodium Chloride 1,000 ML IV SCH ×2 (21:40→23:13)
[2016-12-13] MEDS: Norepineph 8,000 mCg/250 mL NS 8,000 MCG in IV Premix 1 EACH IV SCH (21:41)
--- NOTE | 2016-12-13 21:57 | ABG ---
DateTimeAnalyzed 21:50:00 -_ pH ____7.245 - 7.350 7.450 pCO2 ___36.8__ -mmHg 35.0 45.0 pO2 ___78.2__ -mmHg 69.0 116 HCO3- ___15.4__ -mmol/L 22.0 26.0 ABE __-10.7__ -mmol/L -2.0 2.0 tHb ____9.2__ -g/dL 12.0 18.0 O2Hb ___92.3__ -% COHb ____0.7__ -% 0.0 1.5 MetHb ____1.3__ -% 0.4 1.5 sO2 ___94.1__ -% FIO2 ___50.0__ -% Drawn By AF - Date/Time Notified____ 21:56:00 -_ Liter_Flow ____5.5__ -L/min Oxygen Device 1 __OXYMASK - Notified By AF - Notified Whom ___Dr. Pandya - B 757 -mmHg tO2 ___12.0__ -Vol% Zackary test N/A -
[2016-12-13 22:07] LABS: Mean Corpuscular Hemoglobin 29.6 pg (27.0-35.0); Mean Corpuscular Volume 92.3 fL (81-100); Platelet Count 67 bil/L (150-400)
[2016-12-13 22:26] LABS: BASOPHILS % (AUTO) 0 % (0-3); EOSINOPHILS % (AUTO) 2 % (0-5); MONOCYTES % (AUTO) 4 % (4-12); NEUTROPHILS % (AUTO) 55 % (40-74)
[2016-12-13] MEDS ORDERED: Piperacillin-Tazo 3.375 Gm Inj 3.375 GM in Dextrose 5% Minibag Plus 50 ML IV SCH (23:00)
[2016-12-13] MEDS: Vasopressin Inj 20 UNIT in 0.9% Sodium Chloride 100 ML IV SCH (23:13)
[2016-12-13] MEDS ORDERED: KCl 40 mEq/100 mL (CENTRAL) 40 MEQ in IV Premix 1 EACH IV ONE (23:25)
--- NOTE | 2016-12-13 23:51 | PROCED ---
[address] [address] PROCEDURE NOTE PATIENT: SONI RODRIGUEZ : 1950 MR#: [id number] ADMIT: 12/13/2016 JOB ID: [id number] DATE OF SERVICE: 12/13/2016 POSTOPERATIVE DIAGNOSIS(ES): PREOPERATIVE DIAGNOSIS(ES): SURGEON: Juan Thrasher MD. PROCEDURE: Central line placement. INDICATION: Urosepsis. PROCEDURE NOTE: The patient is a 66-year-old lady who presented for ureteral stent placement for an obstructing ureteral stone. She was in urosepsis at the time of presentation and after a hypotensive episode in the recovery room I decided to place a central line for hemodynamic monitoring, as well as central IV access for norepi infusion. The patient was awake, but not oriented, and was maintaining a good airway. I placed her in Trendelenburg. She had full ASA monitors on. She did require some boluses of phenylephrine during the procedure which I directed. Using a sterile drape, sterile gown, gloves and standard precautions, a right IJ triple-lumen 7-Latvian catheter was placed using the Seldinger technique. Local was injected as the patient was conscious. She tolerated the procedure well. All three ports flush and draw well. The central line placement was then confirmed with a chest x-ray which showed the tip at the junction of the SVC and right atrium. There were no apparent complications. A norepinephrine drip was then started. She required admission to the ICU. I talked to the ICU welfare centre manager and care was transferred subsequently.
[2016-12-14 00:40] LABS: Mean Corpuscular Hemoglobin 29.4 pg (27.0-35.0); Mean Corpuscular Volume 91.7 fL (81-100); Platelet Count 66 bil/L (150-400)
[2016-12-14 00:58] LABS: INR 1.31 ratio
[2016-12-14] MEDS: Heparin 5,000 Unit/mL Inj SUBQ SCH ×4 (00:59→23:43)
[2016-12-14 01:12] LABS: BASOPHILS % (AUTO) 0 % (0-3); EOSINOPHILS % (AUTO) 0 % (0-5); MONOCYTES % (AUTO) 2 % (4-12); NEUTROPHILS % (AUTO) 54 % (40-74)
[2016-12-14] MEDS ORDERED: Magnesium Sulf 4 Gm/100 mL H2O 4 GM in IV Premix 1 EACH IV ONE (01:40)
[2016-12-14] MEDS: 0.9% Sodium Chloride 1,000 ML IV SCH ×2 (03:13→09:54)
[2016-12-14 03:45] VITALS: BP 92/46; PULSE 115; RESP 32; O2SAT 98
[2016-12-14] MEDS: Norepineph 8,000 mCg/250 mL NS 8,000 MCG in IV Premix 1 EACH IV SCH (04:56)
--- NOTE | 2016-12-14 04:56 | ABG ---
DateTimeAnalyzed 04:50:00 -_ pH ____7.238 - 7.350 7.450 pCO2 ___28.5__ -mmHg 35.0 45.0 pO2 ___69.6__ -mmHg 69.0 116 HCO3- ___11.7__ -mmol/L 22.0 26.0 ABE __-14.2__ -mmol/L -2.0 2.0 tHb ___10.3__ -g/dL 12.0 18.0 O2Hb ___91.0__ -% COHb ____0.6__ -% 0.0 1.5 MetHb ____1.2__ -% 0.4 1.5 sO2 ___92.6__ -% FIO2 ___36.0__ -% Drawn By AF - Date/Time Notified____ 04:56:00 -_ Liter_Flow ____3.0__ -L/min Oxygen Device 1 __oxymask - Notified By AF - Notified Whom ___Dr. Pandya - B 759 -mmHg tO2 ___13.2__ -Vol% Zackary test N/A -
[2016-12-14 06:04] LABS: Mean Corpuscular Hemoglobin 29.8 pg (27.0-35.0); Mean Corpuscular Volume 92.2 fL (81-100); Platelet Count 60 bil/L (150-400)
[2016-12-14 06:25] LABS: Magnesium 2.8 mg/dL (1.6-2.6); Phosphorus 4.2 mg/dL (2.5-4.9)
[2016-12-14 08:00] VITALS: BP 101/52; PULSE 115; RESP 28; O2SAT 97
[2016-12-14 08:01] LABS: BASOPHILS % (AUTO) 0 % (0-3); EOSINOPHILS % (AUTO) 0 % (0-5); MONOCYTES % (AUTO) 3 % (4-12); NEUTROPHILS % (AUTO) 79 % (40-74)
[2016-12-14] MEDS ORDERED: Meropenem Inj 1,000 MG in 0.9% Sodium Chloride 100 ML IV SCH (08:30)
--- NOTE | 2016-12-14 09:10 | CONS ---
[address] [address] CONSULTATION REPORT PATIENT: SONI RODRIGUEZ : 1950 MR#: [id number] ADMIT: 12/13/2016 JOB ID: [id number] DATE OF SERVICE: 12/14/2016 REFERRING PHYSICIAN: Zackary Rodriguez MD I thank Dr. Mayfield for this timely consult. REASON FOR CONSULTATION: Septic shock secondary to right-sided ureteral obstruction in a somewhat elderly female. HISTORY OF PRESENT ILLNESS: The patient is a 66-year-old woman who resides at a local [facility] facility. She is known to have a complicated psychiatric history, and was admitted yesterday through the emergency department after she was transferred from the [facility] facility with back pain and flank pain. There was also some report of chest pain. In the ER, the patient was found to be hypotensive, and appeared quite toxic. An EKG was obtained, which was apparently unremarkable, and troponins were negative. Because of concerns about her abdominal and flank pain, a CT scan was done, which showed hydronephrosis, and what appeared to be a complicated urinary tract situation. Because of her shock, and these findings on CT, it was surmised that she had ongoing septic shock secondary to complicated right-sided renal infection. Urology was consulted, and she underwent cystoscopy and placement of a stent by Dr. Morales last night. Following this series of events, the patient has remained on dual vasopressor agents in the ICU. We interviewed the patient this morning, but she is essentially mute. She is awake obviously, with her eyes open, staring straight ahead. She will follow commands, such as open her mouth or wiggle her feet, and does seem to track a little bit, but not much, and does not answer any questions orally. Little else is available around her history. In the emergency department, it was indicated that she thought she was at [facility] in [place], did not want know what year it was, and was unable to provide really anything in the way of history, except back, flank, and perhaps some abdominal pain. PAST MEDICAL HISTORY: 1. Said to be positive for anxiety, bipolar disorder, and chronic depression. 2. She is also known to suffer from hypertension. 3. Chronic migraines. 4. Chronic pain. 5. Chronic back pain. Note that all of this is obtained from records review as the patient is currently not speaking. SOCIAL HISTORY: Was provided apparently by her daughter in the ER. The patient is not a drinker, not a smoker, and lives in a [facility] situation at this point. FAMILY HISTORY: Completely unknown. The patient cannot tell us. REVIEW OF SYSTEMS: Cannot be done in this patient who is essentially mute. PHYSICAL EXAMINATION: Reveals a critically ill woman, lying supine in the ICU. She is staring straight ahead. Follows some commands, but does not answer any questions. She is obviously awake, however. She appears to be in moderate distress, and is using face mask oxygen. Current vital signs include temp 37. Pulse 115, sinus tach. Respiratory rate is around 30. Blood pressure 92/46, which needs to be taken in context as she is currently receiving moderately high doses of norepinephrine, as well as vasopressin to support that blood pressure. Urine output surprisingly good during the night, considering dual vasopressor agents. She is saturating well, but on 3 L by face mask. Her head is without evidence of trauma or temporal wasting. Conjunctivae quite pale, likely reflecting hematocrit in the 20s. No scleral icterus. Nose is normal. Oral cavity, dry mucous membranes. No thrush, hairy leukoplakia, or pharyngitis. Neck without adenopathy. Lungs relatively clear anteriorly. Cardiac tones tachycardic. Difficult to auscultate in terms of murmurs or gallops, but a regular tachycardia is present. The abdomen is relatively soft, with some hint of tenderness in the right side of the abdomen, but there is pronounced right flank tenderness, which does cause the patient to startle or react with even light tapping of the right flank. The left flank is benign. She does not have suprapubic tenderness. She does have a Todd catheter. Extremities surprisingly warm, well-perfused. Skin on her feet is somewhat cracked and dry, but without evidence of infection. Peripheral pulses are present, despite dual vasopressor agents. No peripheral edema. No synovitis. Neurologically, she can move all extremities. LABORATORIES: Labs include white count 18,000, with pronounced left shift 13% to 39% bands; hematocrit 28 last night, 30 this morning; platelets low at 60. Creatinine 1.68. LFTs mildly elevated. AST 117, ALT 77, bilirubin 0.4, alk phos normal at 87. Procalcitonin an impressive 213. Urinalysis: 11-50 white cells, 11-50 red cells. Micro includes a urine culture which is growing greater than 100,000 gram-negative rods, which appear to be E. coli. The blood cultures are growing gram-negative rods, which by PCR probe are E coli, and are KPC negative by PCR probe. IMAGING DATA: Imaging includes a chest radiograph, which we reviewed, and looked relatively clear, with perhaps some bit of haziness at the bases, but no focal infiltrates. There was also a hint perhaps of a very small left pleural effusion. This is my interpretation, and the radiologist felt that, basically, it was normal. CT of the abdomen and pelvis, done in the ER, showed obstructive right urolithiasis with moderate hydronephrosis and fat stranding. Remainder of the CT scan of the abdomen and pelvis was unimpressive. IMPRESSION: This is a woman who resides in a [facility] situation, who presents with a relatively classic presentation of septic shock secondary to complicated urinary tract infection. A great deal has been found out about this patient's situation in the past 12 hours or so, in that she has undergone a procedure by Dr. Morales to relieve the obstruction in the right ureter, and she has also had diagnostic positive blood cultures, which by PCR are growing E. coli. Her antibiotics started off at Zosyn, which probably would have been fine. It has been changed to meropenem, and now that we know it is an E. coli, we can switch to ertapenem, with essentially 100% certainty this will cover the organism. A recent study showed that addition of gentamicin for the first few days to patients like this probably somewhat helps to clear the blood cultures faster, but does increase mortality, and so will avoid that maneuver in this case. RECOMMENDATIONS: 1. Change antibiotics to ertapenem as of this time. 2. Will obtain echocardiogram to facilitate that part of her workup. 3. HIV and hepatitis C should be checked in this patient, as we do not have much of a medical database on this patient. This appears to be her first major admission to [facility].
[2016-12-14] MEDS: Vasopressin Inj 20 UNIT in 0.9% Sodium Chloride 100 ML IV SCH ×2 (09:41→19:46)
[2016-12-14] MEDS ORDERED: Lactated Ringer's 500 ML IV ONE ×3 (11:00→17:00)
--- NOTE | 2016-12-14 11:06 | DRSVH ---
PROCEDURE: X-RAY RETROGRADE UROGRAPHY INDICATIONS: RIGHT STENT PLACEMENT TECHNIQUE: 3 intra-operative images acquired by the Urology service. COMPARISON: [facility], CT, CT ANGIO CHEST ABD, 12/13/2016, 13:11. FINDINGS: Exam is limited to 3 submitted images. Within these limits, the right renal collecting sy stem has been opacified and a double renal collecting system is noted. The Visualized portions of th e ureter appear grossly normal. No intraluminal filling defects are seen. No extravasation of contr ast media. Ureteral stent placed. IMPRESSION: 1. Dual right renal collecting system noted. 2. Normal appearance of the visualized right ureter. 3. Ureteral stent placement. Dictated by: Bruce Flores [facility] Interpreted: Tim Naylor MD on 12/14/2016 at 8:09 Approved by: Tim Naylor M.D. on 12/14/2016 at 11:04
--- NOTE | 2016-12-14 11:14 | DRSVH ---
PROCEDURE: X-RAY CHEST ONE VIEW, PORTABLE ([id number]) INDICATIONS: dyspnea TECHNIQUE: One view of the chest was acquired. COMPARISON: [facility], CR, XR CHEST 1VW (PORTABLE), 12/13/2016, 12:49. [facility], CR, XR CHEST 1VW (PORTABLE), 12/13/2016, 20:46. FINDINGS: Surgical changes and devices: Stable position of right IJ CVL tube tip extending slightly into the ri ght atrium. Lungs and pleura: Lung volumes remain low and diffuse, widespread bilateral pulmonary interstitial an d air space opacities are present. Mediastinum: Mediastinal contours appear normal. Heart size is normal. Bones and chest wall: No suspicious bony lesions. Overlying soft tissues appear unremarkable. IMPRESSION: 1. Right IJ tube tip extending slightly into the right atrium. 2. Pulmonary edema and/or diffuse bilateral pneumonia. Correlate clinically. Dictated by: Bruce MUKHERJEE Interpreted: Tim Naylor MD on 12/14/2016 at 8:30 Approved by: Tim Naylor M.D. on 12/14/2016 at 11:12
[2016-12-14 12:00] VITALS: BP 110/52; PULSE 112; RESP 21; O2SAT 93
--- NOTE | 2016-12-14 12:42 | PCM.PNMED ---
Subjective Date of Service Dec 14, 2016 Subjective She is illness morning. She is minimally verbal. She does note some abdominal pain. She really cannot answer much in terms of other questions. Overnight events include septic shock, a right IJ central venous catheter was placed. The left radial artery catheter was placed. She was initially on norepinephrine and vasopressin was added. Blood cultures are positive for Escherichia coli. Antibiotics were changed from Zosyn to meropenem. There is a concern for possible ESBL pyelonephritis and sepsis. Exam Vital Signs Vital Sign - Last Date Time Temp Pulse Resp B/P Pulse Ox O2 Delivery O2 Flow Rate FiO2 12/14/16 08:00 37.5 115 28 101/52 97 OxyMask 12/14/16 03:45 3.00 Intake and Output 12/13/16 12/13/16 12/14/16 Cumulative From/Thru 15:00 23:00 07:00 12/13/16 12:26 - 12/14/16 06:16 Intake Total 1000 ml 1600 ml 3315 ml 5915 ml Output Total 100 ml 80 ml 500 ml 680 ml Balance 900 ml 1520 ml 2815 ml 5235 ml Intake Oral 0 ml 0 ml IV Total 1000 ml 1600 ml 3315 ml 5915 ml Output Urine Total 100 ml 75 ml 500 ml 675 ml Estimated Blood Loss 5 ml 5 ml Other 0 ml 0 ml # Bowel Movements 0 0 Exam She has not C mask and saturations are 90% on 3 L. She is awake and minimally responsive. She can answer very simple questions. She is in no acute distress. Anicteric sclera. Lungs are clear with increased rate and effort Heart is regular without murmur gallop or rub Abdomen soft nontender, flat. Extremities are free of edema. Skin is free of rash or lesions. IVs and Medications Medications Reviewed: Medications were reviewed in detail Lab and Diagnostics Result Diagram: 12/14/16 0540 12/14/16 0540 X-Rays, CTs and MRIs Chest x-ray unremarkable Abdominal CT is notable for right ureter stone was significant moderate to severe hydronephrosis. 12-lead ECG Sinus tachycardia with right bundle branch block Assessment & Plan #. Acute respiratory failure with hypoxia, new and active. The patient's chest x-ray reveals pulmonary infiltrates this could indicate ARDS versus pulmonary edema. 2-D echo continue to support with oxygen and follow ventilation carefully. The patient is full resuscitation and intubate if needed in terms of level of care. #. Nephrolithiasis with a right obstructive hydronephrosis, present on admission and active. She is status post right ureter stenting. The plan is to continue empiric antibiotics and hemodynamic support as well as IV fluids. #. Pyelonephritis, present on admission and active. Cultures revealed Escherichia coli, sensitivities pending. Expanded coverage to meropenem to cover ESBL. #. Sepsis, present on admission and active. SIRS criteria met, source is pyelonephritis. The patient continues to be all she is weaned off of vasopressin but needs norepinephrine for support. She does have septic shock. Continue IV fluids. #. Lactic acidosis, present on admission and active. Plan is as above and continue IV fluids as well as antibiotics. #. Acute kidney injury, present on admission and active. Plan is the same as above. Follow carefully. #. Essential hypertension, present on admission and stable. Hold medications while fluid resuscitating . #. Chronic anxiety and depression, present on admission. Resume usual medications in the next 12-24 hours. #. Bipolar, present on admission and active. Plan as above resume medications next 12-24 hours #. Acute septic encephalopathy, present on admission and active. Follow clinically and treated sepsis and pyelonephritis as above. She is full resuscitation per her POLST. Admitted to Inpatient status, with expected length of stable over 2 nights. The patient is critically ill. Her prognosis is guarded. VTE Mechanical Devices: Intermittant Pneumatic CD Resuscitation Status: CPR: Attempt Resuscitation Zackary Hunter MD Dec 14, 2016 12:42
--- NOTE | 2016-12-14 12:43 | DRSVH ---
[facility] [address] [place] [address] Echocardiogram Report Name: SONI RODRIGUEZ MStudy Date: 12/14/2016 Height: 62 in Hospital Exam Location: [facility] Weight: 170 lb Gender: Female BSA: 1.8 m2 : 1950 Age: 66 yrs BP: 92/46 mmHg Reason For Study: Murmur, Shock Ordering Physician: HOSPITALIST [facility] Performed By: Jocelin Velez Referring Physician: Wyatt Serrato Interpretation Summary The left ventricular cavity is small. Overall left ventricular systolic function is preserved. Difficult to accurately assess ejection fraction due to tachycardia and decreased visualization on endocardial borderlining. There are no obvious focal wall motion abnormalities noted but poor endocardial definition reduces the sensitivity for the detection of such. The right ventricle is grossly normal size. The right ventricular systolic function is normal. Pulmonary artery pressures cannot be estimated because of the lack of a measurable TR jet velocity. The left atrial size is normal. Right atrial size is normal. There is mild to moderate mitral regurgitation. There is mild aortic stenosis. The calculated aortic valve area is 1.5 cm2. The peak aortic velocity is 2.41 m/sec. There has been no significant change since the previous study. There is no other significant valvular heart disease. The aortic root is normal size. Procedure: A two-dimensional transthoracic echocardiogram with color flow and Doppler was performed. The study quality was technically difficult. Comparison is made with the echocardiogram of 02/16/2014. The patient was in sinus tachycardia with heart rates between 113-116 bpm during the exam. Left Ventricle: The left ventricular cavity is small. Overall left ventricular systolic function is preserved. Difficult to accurately assess ejection fraction due to tachycardia and decreased visualization on endocardial borderlining. There are no obvious focal wall motion abnormalities noted but poor endocardial definition reduces the sensitivity for the detection of such. Diastolic function could not be accurately assessed due to tachycardia. Right Ventricle: The right ventricle is grossly normal size. The right ventricular systolic function is normal. Atria: The left atrial size is normal. Right atrial size is normal. The interatrial septum is intact with no evidence for an atrial septal defect. Mitral Valve: The mitral valve leaflets appear mildly thickened, but open well. There is mild mitral annular calcification. The mitral valve mean gradient is 5 mmHg. There is mild to moderate mitral regurgitation. Aortic Valve: The aortic valve is trileaflet. The aortic valve is mildly calcified. There is mild aortic stenosis. The aortic valve mean gradient is 17 mmHg. The calculated aortic valve area is 1.5 cm2. The peak aortic velocity is 2.41 m/sec. There has been no significant change since the previous study. No aortic regurgitation is present. Tricuspid Valve: The tricuspid valve is not well visualized, but is grossly normal. There is trace tricuspid regurgitation. Pulmonary artery pressures cannot be estimated because of the lack of a measurable TR jet velocity. Pulmonic Valve: The pulmonic valve is not well seen, but is grossly normal. There is a trace or physiologic amount of pulmonic regurgitation. There is no other significant valvular heart disease. Great Vessels: The aortic root is normal size. The ascending aorta is normal in size. The IVC is dilated (diameter is greater than 2.1 cm) and it collapses less than 50% with a sniff. This suggests a high right atrial pressure of 15 mm Hg. Pericardium/ Pleura There is no pericardial effusion. MMode/2D Measurements & Calculations LVIDd: 3.5 cm LVIDs: 2.0 cm LA A2 area: 13.2 cm FS: 44.0 % LA A4 area: 14.8 cm IVSd: 1.1 cm LA length (vol): 4.2 cm LVPWd: 1.0 cm LA vol: 39.2 ml LA vol index: 22.0 ml/m IVC diam: 2.0 cm RA long axis: 3.4 cm LVOT diam: 1.9 cm RA area: 8.5 cm asc Aorta Diam: 3.1 cm RA vol: 18.1 ml RA : 10.2 ml/m2 LV farrell. diameter/BSA (cm/m^2): 2.0 LV sys. diameter/BSA (cm/m^2): 1.1 TAPSE: 1.8 cm Doppler Measurements & Calculations Ao V2 max: 241.8 cm/sec MVA(VTI): 2.2 cm2 Ao max P.4 mmHg Ao mean P.6 mmHg LVOT Max Tony: 120.7 cm/sec PHILLIP(I,D): 1.5 cm sev ratio: 0.50 TR max tony: 237.0 cm/sec MV V2 mean: 105.7 cm/sec TR max P.6 mmHg MV mean P.8 mmHg PA V2 max: 85.2 cm/sec MV V2 VTI: 26.1 cm PA mean P.6 mmHg Ao V2 mean: 198.3 cm/sec LV V1 max P.8 mmHg Ao V2 VTI: 39.3 cm LV V1 VTI: 19.5 cm PHILLIP(V,D): 1.5 cm2 PA V2 mean: 61.2 cm/sec PHILLIP indexed to BSA (cm^2/m^2): 0.83 PA pr(Accel): 44.7 mmHg Reading Physician:LEYDI
[2016-12-14] MEDS ORDERED: Sodium Chloride LOK Flush 10 mL Syringe IVFLUSH PRN ×2 (14:00)
--- NOTE | 2016-12-14 14:03 | CONS ---
[address] [address] CONSULTATION REPORT PATIENT: SONI RODRIGUEZ : 1950 MR#: [id number] ADMIT: 12/13/2016 JOB ID: [id number] PULMONARY/CRITICAL CARE CONSULTATION: DATE OF SERVICE: 12/14/2016 REQUESTING PHYSICIAN: Zackary Rodriguez MD REASON FOR CONSULTATION: The patient is a 66-year-old woman with history of mild dementia, diabetes, presenting with severe sepsis with obstructing kidney stone, seen in consultation at the request of Dr. Rodriguez for septic shock requiring vasopressors. HISTORY OF PRESENT ILLNESS: I am currently not able to obtain any history from the patient. She is minimally verbal. Much of the history is obtained from review of medical records. The patient has a history of dementia, lives at a special memory care facility but reportedly is reasonably well functioning at baseline and communicative. Yesterday she was brought in to the emergency department with back pain, chest pain, nausea and diaphoresis reportedly. She also had some low blood pressures in the emergency department. Imaging revealed obstructive right urolithiasis with moderate to severe hydronephrosis. The patient was taken to the operating room by Dr. Morales with Urology and had a stent placed with relief of purulent urine subsequently. She had hypotension, required large volume fluid resuscitation as well as vasopressors. A central line and an arterial line were placed by Anesthesia at that time. She was started on Zosyn and subsequently switched to carbapenem. Blood cultures are all growing E. coli. She is currently in the ICU on 3 L Oxymask. She was on both vasopressin and norepinephrine, but vasopressin was weaned off and she is on 0.15 mcg of norepinephrine currently. Past medical history, social history, family history, review of systems could not be directly obtained from the patient because she is currently nonverbal for me, but on review of medical records past medical history includes: 1. Mild dementia. 2. Chronic pain. 3. Bipolar disorder. 4. Hypertension. PHYSICAL EXAMINATION: Vital signs reviewed. T-max 37.5, pulse 115, respirations 28, BP 101/52, sats 97% on 3 L Oxymask. General: Pale, elderly woman, lying in bed. Eyes open, but she will not track or follow commands or answer my questions. Neck: No cervical lymphadenopathy. Chest clear to auscultation anteriorly. Heart: She has a loud systolic murmur along the left sternal border. Abdomen is mildly tender to palpation. Extremities: No cyanosis, clubbing, or edema. LABORATORY DATA: Labs reviewed. WBC 18.7, platelets 60. Chemistry also reviewed and notable for creatinine of 1.68, bicarb of 11, lactate 3.9, procalcitonin greater than 200. IMAGING: Chest x-ray reviewed and shows bilateral pulmonary edema. Chest CT from yesterday was reviewed and shows a normal appearing pulmonary parenchyma. CULTURES: Blood cultures are positive for E. coli. OTHER DATA: Arterial blood gas from early this morning shows pH 7.23, pCO2 of 28, pO2 of 69 and bicarb of 11. ASSESSMENT/RECOMMENDATIONS: 1. Septic shock. 2. Escherichia coli bacteremia and pyelonephritis. 3. Acute kidney injury. 4. Metabolic acidosis and lactic acidosis. 5. Hypomagnesemia. 6. Acute encephalopathy/delirium. This 66-year-old woman with mild dementia, living at a care facility was brought in with back pain, found to have pyelonephritis with an obstructing kidney stone and hydronephrosis on the right. She was taken to the operating room for stent placement, relieving the obstruction with purulent output. Blood cultures are growing E. coli and she is in shock, on vasopressors, initially both norepinephrine vasopressin but now improving, off vasopressin. Mentation is less than optimal but I wonder if this is due to critical illness/delirium. We will give her some IV fluids - lactated Ringer's 500 mL once now and stop her normal saline infusion. This may be exacerbating the metabolic acidosis. I think we should recheck her chemistry this afternoon to make sure the acidosis is not worsening. An alternative is to check an arterial blood gas instead which may be easier to do. We should also recheck the lactate to make sure it is coming down. She is currently on ertapenem for antibiotic. She is on subcu heparin for DVT prophylaxis. Her daughter is at the bedside and was updated. We spoke with her care facility who indicated she is functional at her baseline and normally communicative. CRITICAL CARE TIME: 60 minutes.
--- NOTE | 2016-12-14 15:47 | ABG ---
DateTimeAnalyzed 15:33:26 -_ pH ____7.258 - 7.350 7.450 pCO2 ___33.3__ -mmHg 35.0 45.0 pO2 ___75.2__ -mmHg 69.0 116 HCO3- ___14.9__ -mmol/L 22.0 26.0 ABE __-11.2__ -mmol/L -2.0 2.0 tHb ____9.7__ -g/dL 12.0 18.0 O2Hb ___93.4__ -% COHb ____0.9__ -% 0.0 1.5 MetHb ____0.0__ -% 0.4 1.5 sO2 ___94.1__ -% FIO2 ___32.0__ -% Drawn By as - Date/Time Notified____ 15:46:00 -_ Spontaneous_RR 18 -b/min Liter_Flow ____3.00_ -L/min Oxygen Device 1 __oxymask - Notified By ams - Notified Whom Kinjal Powell, RN -__ K+ ____4.0__ -mmol/L 3.5 5.0 tO2 ___12.8__ -Vol% Zackary test N/A -
[2016-12-14] MEDS ORDERED: Ertapenem Inj 1,000 MG in 0.9% Sodium Chloride 50 ML IV SCH (16:30)
[2016-12-14 16:42] LABS: Magnesium 2.6 mg/dL (1.6-2.6); Phosphorus 4.4 mg/dL (2.5-4.9)
[2016-12-14] MEDS: Pantoprazole 4 mg/mL 10 mL Inj IVPUSH SCH (17:12)
[2016-12-14 19:49] VITALS: BP 92/42; PULSE 108; RESP 20; O2SAT 97
[2016-12-14] MEDS: fentaNYL-PF 50 mCg/mL 2 mL Inj IVPUSH PRN (22:53)
[2016-12-14 23:17] VITALS: BP 94/44; PULSE 106; RESP 15; O2SAT 97
[2016-12-15 04:20] LABS: Mean Corpuscular Hemoglobin 29.7 pg (27.0-35.0); Mean Corpuscular Volume 90.8 fL (81-100); Platelet Count 50 bil/L (150-400)
[2016-12-15 04:39] LABS: BASOPHILS % (AUTO) 0 % (0-3); EOSINOPHILS % (AUTO) 0 % (0-5); MONOCYTES % (AUTO) 4 % (4-12); NEUTROPHILS % (AUTO) 84 % (40-74)
--- NOTE | 2016-12-15 05:11 | OP ---
[address] [address] OPERATIVE REPORT PATIENT: SONI RODRIGUEZ : 1950 MR#: [id number] ADMIT: 12/13/2016 JOB ID: [id number] DATE OF SURGERY: 12/13/2016 PREOPERATIVE DIAGNOSIS(ES): 1. Right ureteral calculus. 2. Right hydronephrosis. 3. Urinary tract infection. 4. Sepsis. POSTOPERATIVE DIAGNOSIS(ES): 1. Right ureteral calculus. 2. Right hydronephrosis. 3. Urinary tract infection. 4. Sepsis. PROCEDURE: 1. Cystoscopy. 2. Right ureteral stent placement. SURGEON: Dale Morales MD. CLIMATOLOGIST: None. ANESTHESIA: General. ESTIMATED BLOOD LOSS: Less than 5 mL. SPECIMENS: Urine culture from right kidney sent to microbiology lab. DRAINS: 24 cm x 6-Ivorian right ureteral double-J stent, 18-Ivorian Todd catheter to straight drainage. COMPLICATIONS: None. CONDITION: Guarded. FINDINGS: Cystoscopy revealed no bladder, calculi or tumors. Cloudy urine was drained from the right renal collecting system. 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 The right ureteral stent was placed (with proximal pigtail in more dilated lower pole moiety) without difficulty. INDICATIONS: The patient is 66-year-old female, admitted on the hospitalist service for right ureteral calculus, right hydronephrosis, UTI and sepsis. The patient now presents for urgent cystoscopy and right ureteral stent placement. DESCRIPTION OF PROCEDURE: The patient brought to the operating room and placed supine on the operating room table. The patient was given Zosyn IV earlier in the emergency department. Sequential compression devices were placed. General anesthesia was administered. The patient was brought down in dorsal lithotomy position. The patient was prepped and draped in standard surgical fashion. A 22-Ivorian rigid cystoscope was placed through the urethra into the bladder without difficulty. Cystoscopy revealed no bladder, calculi or tumors and bilateral ureteral orifices were in normal position. An angle tip ultra guidewire was passed into the right orifice and passed up the right ureter into the right renal pelvis. A 5-Ivorian open-ended catheter was passed over the guidewire with the cystoscope up the right ureter into the right renal pelvis. The guidewire was removed. Cloudy urine was drained from the right renal collecting system and this urine was sent to the microbiology laboratory as urine culture from right kidney. After all the urine was drained from the right renal collecting system, a small amount of contrast was instilled into the right renal collecting system to illuminate the right renal collecting system to aid in stent placement. 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 The guidewire was passed through the open-ended catheter, up the right ureter and placed into the renal pelvis of the more dilated lower pole moiety. A 24 cm x 6-Ivorian ureteral double-J stent, with the stent string removed prior to stent placement, was passed over the guidewire through cystoscope and passed up the right ureter and placed so that the proximal pigtail was located in the renal pelvis of the more dilated lower pole moiety of the right kidney, and a distal pigtail was located in the bladder. The guidewire was removed. Correct positioning of the stent was confirmed both fluoroscopically and under direct visualization using cystoscope. Good efflux of contrast could be seen draining from the distal end of the stent into the bladder further confirming correct stent positioning. Cystoscope was removed from the patient. An 18-Ivorian Todd catheter was placed through the urethra into the bladder without difficulty. Todd catheter balloon was inflated with 10 mL sterile water. Todd catheter was placed to straight drainage. The skin was cleaned and dried. The patient was placed in supine position. The patient was awakened from general anesthesia and was transferred to the recovery room in guarded condition. PLAN: Plan is for the patient be transferred to the ICU. Case was discussed with the [facility] hospitalist, Dr. Alanis. I recommend continuing broad spectrum IV antibiotics and IV fluid resuscitation postoperatively. The patient may be able to pass the right ureteral calculus in the future. However if she is not able to pass the calculus, she would need treatment of the right ureteral calculus in the future after her infection is completely resolved.
[2016-12-15 06:03] LABS: Magnesium 2.6 mg/dL (1.6-2.6); Phosphorus 3.4 mg/dL (2.5-4.9)
[2016-12-15] MEDS: Vasopressin Inj 20 UNIT in 0.9% Sodium Chloride 100 ML IV SCH (07:55)
[2016-12-15] MEDS: Pantoprazole 4 mg/mL 10 mL Inj IVPUSH SCH ×2 (07:58→17:28)
[2016-12-15 08:00] VITALS: BP 110/61; PULSE 107; RESP 16; O2SAT 98
[2016-12-15] MEDS: fentaNYL-PF 50 mCg/mL 2 mL Inj IVPUSH PRN ×3 (08:00→14:23)
[2016-12-15] MEDS: Heparin 5,000 Unit/mL Inj SUBQ SCH (08:10)
--- NOTE | 2016-12-15 08:51 | DRSVH ---
PROCEDURE: X-RAY CHEST ONE VIEW, PORTABLE ([id number]) INDICATIONS: respiratory failure TECHNIQUE: One view of the chest was acquired. COMPARISON: [facility], CR, XR CHEST 1VW (PORTABLE), 12/14/2016, 8:08. FINDINGS: Surgical changes and devices: Central venous catheter is stable. Lungs and pleura: No pneumothorax. Trace bilateral pleural effusions noted. Bilateral perihilar opac ities are worsening erosive to prior examination. Mediastinum: Mediastinal contours appear normal. Heart size is normal. Bones and chest wall: No suspicious bony lesions. Overlying soft tissues appear unremarkable. IMPRESSION: Worsening bilateral pulmonary edema or pneumonia. Dictated by: Yvette Morales MD, PhD on 12/15/2016 at 8:48 Approved by: Yvette Morales MD, PhD on 12/15/2016 at 8:49
--- NOTE | 2016-12-15 10:53 | PCM.PNMED ---
Subjective Date of Service Dec 15, 2016 Subjective She is awake today and will do answers simple questions. She is having some back pain. She is not nauseated. She is very lethargic and slow to answer questions but does follow commands and opens her eyes when asked to. No overnight events noted. She is off pressors. Exam Vital Signs Vital Sign - Last Date Time Temp Pulse Resp B/P Pulse Ox O2 Delivery O2 Flow Rate FiO2 12/15/16 08:00 36.9 107 16 110/61 98 OxyMask 5.00 Intake and Output 12/14/16 12/14/16 12/15/16 Cumulative From/Thru 15:00 23:00 07:00 12/13/16 12:26 - 12/15/16 05:38 Intake Total 2947 ml 572 ml 9434 ml Output Total 850 ml 550 ml 2080 ml Balance 2097 ml 22 ml 7354 ml Intake Oral 0 ml 0 ml IV Total 2947 ml 572 ml 9434 ml Output Urine Total 850 ml 550 ml 2075 ml Estimated Blood Loss 5 ml Other 0 ml # Bowel Movements 0 0 Exam Alert and oriented, lethargic in no distress. Slow slurred speech. Anicteric sclera. Lungs are clear with normal rate and effort Heart is regular with 4/6 systolic murmur, no gallop or rub. Abdomen soft nontender, flat Extremities are free of edema. Skin is free of rash or lesions. IVs and Medications Medications Reviewed: Medications were reviewed in detail Lab and Diagnostics Result Diagram: 12/15/16 0410 12/15/16 0410 X-Rays, CTs and MRIs Chest x-ray unremarkable Abdominal CT is notable for right ureter stone was significant moderate to severe hydronephrosis. 12-lead ECG Sinus tachycardia with right bundle branch block Assessment & Plan #. Acute respiratory failure with hypoxia, new and improving. The patient was titrated on oxygen. Her chest x-ray revealed bilateral pulmonary infiltrates yesterday. We will repeat this morning. This could be early ARDS versus pulmonary edema. We will also order 2-D echo. #. Nephrolithiasis with a right obstructive hydronephrosis, present on admission and improved. She is status post right ureter stenting. The plan is to continue antibiotics and hemodynamic support as well as IV fluids. #. Pyelonephritis, present on admission and active. Cultures revealed Escherichia coli, which is pansensitive. Will narrow antibiotics back to ceftriaxone. #. Sepsis, present on admission and improving. SIRS criteria met, source is pyelonephritis. The patient was able to wean off vasopressin and norepinephrine. Continue IV fluids. #. Lactic acidosis, present on admission and resolved. Plan is as above and continue IV fluids as well as antibiotics. #. Acute kidney injury, present on admission and improving. Plan is the same as above. Follow carefully. #. Essential hypertension, present on admission and stable. Hold medications while fluid resuscitating . #. Chronic anxiety and depression, present on admission. Resume usual medications in the next 12-24 hours. #. Bipolar, present on admission and active. Plan as above resume medications next 12-24 hours #. Acute septic encephalopathy, present on admission and active. Follow clinically and treated sepsis and pyelonephritis as above. She is full resuscitation per her POLST. Admitted to Inpatient status, with expected length of stable over 2 nights. The patient is critically ill. Her prognosis is guarded. VTE Mechanical Devices: Intermittant Pneumatic CD Resuscitation Status: CPR: Attempt Resuscitation Zackary Hunter MD Dec 15, 2016 10:53
[2016-12-15] MEDS ORDERED: cefTRIAXone Inj 2,000 MG in Dextrose 5% Minibag Plus 50 ML IV SCH (10:55)
[2016-12-15] MEDS ORDERED: Furosemide 10 mg/mL 2 mL Inj IVPUSH ONE (11:45)
[2016-12-15 12:00] VITALS: BP 125/56; PULSE 112; RESP 15; O2SAT 97
--- NOTE | 2016-12-15 13:26 | PROG NOTE ---
[address] [address] PROGRESS NOTE PATIENT: SONI RODRIGUEZ : 1950 MR#: [id number] ADMIT: 12/13/2016 JOB ID: [id number] DATE: 12/15/2016 PULMONARY/CRITICAL CARE PROGRESS NOTE: The patient is a 66-year-old woman with history of dementia, admitted with septic shock due to obstructive pyelonephritis with E. coli bacteremia. INTERVAL HISTORY: She has been weaned off of pressors overnight and has been off since 3 a.m. this morning. She remains minimally responsive, moaning, and uttering single syllable responses to questions. She is on 5 L oxygen which is up compared to yesterday slightly. REVIEW OF SYSTEMS: Could not be obtained due to her mentation. PHYSICAL EXAMINATION: Vital signs reviewed. T-max 37.6, pulse 107, respirations 16, BP 110/61, sats 98% on 5 L nasal cannula. General: Lying in bed, lethargic and moaning. Tries to answer some questions. Opens eyes to voice and single responses. Chest: Gurgling upper airway sounds. Heart: Systolic murmur heard all over the precordium. Abdomen: Soft, nontender. LABORATORIES: Reviewed. WBC up to 23 from 18, hemoglobin 9.1, platelets 50 from 60 yesterday. Chemistry sodium 142, chloride 112, bicarb up to 15 from 11 yesterday, creatinine stable at 1.67 compared to 1.7 yesterday. Procalcitonin is 161 today from 212 yesterday. Blood cultures and urine cultures are growing E. coli that is pansensitive. Chest x-ray shows low lung volumes and bilateral basilar infiltrates consistent with pulmonary edema. Arterial blood gas from yesterday evening shows pH of 7.25, pCO2 of 33, pO2 of 75, bicarb of 14.9. ASSESSMENT: 1. Septic shock. 2. Eschericia coli bacteremia due to pyelonephritis with obstructing kidney stone. 3. Status post stent placement for obstructing kidney stone. 4. Acute kidney injury. 5. Metabolic acidosis and lactic acidosis--improving. 6. Acute encephalopathy/delirium. 7. History of dementia. RECOMMENDATIONS: A 66-year-old woman with a baseline history of dementia, living at a care facility, who is brought in with septic shock, pyelonephritis, and an obstructing kidney stone for which she had a stent placement. She has been on pressors until early hours of this morning when they were weaned off. Oxygenation-pollard she is not doing too badly on 5 L OxyMask, but her chest x-ray shows significant volume overload, so I would like to start diuresing her. We will give her one dose of IV Lasix now and monitor her urine output with this. She is still putting out bloody urine. With regards to her infection, the E. coli is pansensitive and her antibiotics were narrowed from ertapenem to ceftriaxone alone. All of the infection parameters seem to be slowly improving, she is off pressors, procalcitonin is down from over 200 to 160 now, but her white count did take a bump up to 23 from 18. At this point we will simply watch this and see where trends over the next few days since she is otherwise improving. She is on appropriate DVT prophylaxis and GI prophylaxis is no longer indicated. TIME: Critical care time is 45 minutes.
[2016-12-15 16:00] VITALS: BP 142/62; PULSE 112; RESP 18
[2016-12-15] MEDS: Norepineph 8,000 mCg/250 mL NS 8,000 MCG in IV Premix 1 EACH IV SCH (20:20)
[2016-12-15 23:03] VITALS: BP 120/56; PULSE 103; RESP 16; O2SAT 99
[2016-12-16] VITALS (12 sets, daily range): BP systolic 103–165; BP diastolic 62–99; PULSE 99–122; RESP 15–30; O2SAT 88–96
[2016-12-16] MEDS: fentaNYL-PF 50 mCg/mL 2 mL Inj IVPUSH PRN ×3 (00:17→13:43)
[2016-12-16] MEDS ORDERED: LORazepam 0.5 mg Tablet PO ONE (03:55)
[2016-12-16 06:23] LABS: Mean Corpuscular Volume 90.8 fL (81-100); Platelet Count 41 bil/L (150-400)
[2016-12-16 06:51] LABS: Magnesium 2.3 mg/dL (1.6-2.6); Phosphorus 1.9 mg/dL (2.5-4.9)
[2016-12-16] MEDS: Heparin 5,000 Unit/mL Inj SUBQ SCH (07:28)
[2016-12-16 07:31] LABS: BASOPHILS % (AUTO) 0 % (0-3); EOSINOPHILS % (AUTO) 0 % (0-5); MONOCYTES % (AUTO) 2 % (4-12); NEUTROPHILS % (AUTO) 84 % (40-74)
[2016-12-16] MEDS: Pantoprazole 4 mg/mL 10 mL Inj IVPUSH SCH ×2 (07:39→16:44)
--- NOTE | 2016-12-16 07:51 | DRSVH ---
PROCEDURE: X-RAY CHEST ONE VIEW, PORTABLE ([id number]) INDICATIONS: respiratory failure TECHNIQUE: One view of the chest was acquired. COMPARISON: [facility], CR, XR CHEST 1VW (PORTABLE), 12/15/2016, 5:19. [facility], CR, XR CHEST 1VW (PORTABLE), 12/14/2016, 8:08. FINDINGS: Surgical changes and devices: Right internal jugular vein central venous catheter is present, tip of which is in the upper SVC. Lungs and pleura: No pneumothorax. Small right pleural effusion. No change in severe bilateral mid-l ower lung airspace opacity. No change in moderate diffuse interstitial pulmonary opacification. Mediastinum: Mediastinal contours appear normal. Heart size is normal. Bones and chest wall: No suspicious bony lesions. Overlying soft tissues appear unremarkable. IMPRESSION: 1. No change in bilateral pneumonia versus edema. Dictated by: Gemma Jacobsen M.D. on 12/16/2016 at 7:48 Approved by: Gemma Jacobsen M.D. on 12/16/2016 at 7:49
[2016-12-16] MEDS ORDERED: Ertapenem Inj 1,000 MG in 0.9% Sodium Chloride 50 ML IV SCH (08:30)
[2016-12-16] MEDS ORDERED: Potassium Phos (mEq) Inj 40 MEQ in Dextrose 5% 500 ML IV ONE (08:30)
--- NOTE | 2016-12-16 08:44 | PCM.PNMED ---
Subjective Date of Service Dec 16, 2016 Subjective Patient is encephalopathic and not answering questions. She is arousable and appears to be in no distress. No overnight events noted. Her platelets remained low with an HIT antibody pending. Heparin is on hold. Exam Vital Signs Vital Sign - Last Date Time Temp Pulse Resp B/P Pulse Ox O2 Delivery O2 Flow Rate FiO2 12/16/16 07:45 117 130/70 12/16/16 07:23 36.9 25 93 OxyMask 5.00 Intake and Output 12/15/16 12/15/16 12/16/16 Cumulative From/Thru 15:00 23:00 07:00 12/13/16 12:26 - 12/16/16 04:12 Intake Total 305 ml 131 ml 9870 ml Output Total 2100 ml 1000 ml 5180 ml Balance -1795 ml -869 ml 4690 ml Intake Oral 0 ml 0 ml 0 ml IV Total 305 ml 131 ml 9870 ml Output Urine Total 2100 ml 1000 ml 5175 ml Estimated Blood Loss 5 ml Other 0 ml # Bowel Movements 0 Exam Lethargic, arousable. No distress. Anicteric sclera. Lungs are clear with normal rate and effort Heart is regular without murmur gallop or rub Abdomen soft nontender, flat Extremities are free of edema. Skin is free of rash or lesions. IVs and Medications Medications Reviewed: Medications were reviewed in detail Lab and Diagnostics Result Diagram: 12/16/16 0600 12/16/16 0600 X-Rays, CTs and MRIs Chest x-ray unremarkable Abdominal CT is notable for right ureter stone was significant moderate to severe hydronephrosis. 12-lead ECG Sinus tachycardia with right bundle branch block Assessment & Plan #. Acute respiratory failure with hypoxia, new and improving. She appears to have improved with diuresis. She has slightly hypernatremic today. Continue to titrate oxygen down as able. #. Escherichia coli bacteremia, presumably present on admission. The plan is to continue antibiotics. #. Hypernatremia, new and active. We will start D5W at 50 and follow carefully. #. Nephrolithiasis with a right obstructive hydronephrosis, present on admission and improved. She is status post right ureter stenting. The plan is to continue antibiotics and hemodynamic support as well as IV fluids. No changes for today. #. Pyelonephritis, present on admission and active. Cultures revealed Escherichia coli, which is pansensitive. Her white count is up, her pro- calcitonin is down and her white count is stable. We will resume ertapenem. #. Sepsis, present on admission and improving. SIRS criteria met, source is pyelonephritis. The patient was able to wean off vasopressin and norepinephrine. Continue IV fluids. Follow pro-calcitonin and bicarbonate closely. #. Lactic acidosis, present on admission and resolved. Plan is as above and continue IV fluids as well as antibiotics. Follow clinically. #. Acute kidney injury, present on admission and improving. Plan is the same as above. Follow carefully. Follow clinically. #. Essential hypertension, present on admission and stable. Hold medications while fluid resuscitating . #. Chronic anxiety and depression, present on admission. Resume usual medications in the next 12-24 hours. #. Bipolar, present on admission and active. Plan as above resume medications next 12-24 hours #. Acute septic encephalopathy, present on admission and active. Follow clinically and treated sepsis and pyelonephritis as above. She is full resuscitation per her POLST. Admitted to Inpatient status, with expected length of stable over 2 nights. The patient is critically ill. Her prognosis is guarded. VTE Mechanical Devices: Intermittant Pneumatic CD Resuscitation Status: CPR: Attempt Resuscitation Zackary Hunter MD Dec 16, 2016 08:44
[2016-12-16] MEDS: Dextrose 5% 1,000 ML IV SCH (09:30)
[2016-12-16] MEDS ORDERED: Furosemide 10 mg/mL 2 mL Inj IVPUSH ONE ×2 (10:10→14:25)
--- NOTE | 2016-12-16 12:01 | PROG NOTE ---
[address] [address] PROGRESS NOTE PATIENT: SONI RODRIGUEZ : 1950 MR#: [id number] ADMIT: 12/13/2016 JOB ID: [id number] DATE: 12/16/2016 PULMONARY CRITICAL CARE PROGRESS NOTE: IDENTIFICATION: The patient is a 66-year-old woman seen for septic shock in the setting of obstructing kidney stone causing hydronephrosis and E. coli bacteremia. INTERVAL HISTORY: She remains encephalopathic, eyes open, answering in single syllables but quite delirious. She has been off vasopressors for over 24 hours and has made good urine with IV Lasix. Has been hypertensive overnight and somewhat agitated trying to climb out of bed according to the nurses. REVIEW OF SYSTEMS: Could not be obtained because of the patient's mentation. PHYSICAL EXAMINATION: Vital signs reviewed. T-max of 38, pulse 117, respirations 25, BP 130/70, currently she is on OxyMask 5 L satting 93%. General, ill-appearing elderly woman lying in bed, eyes open, staring, tries to track, and mumbles brief responses to questions but not really conversant. Chest bilateral upper airway sounds transmitted with gurgling. Abdomen mildly distended, soft, nontender. LABORATORIES: Reviewed. Notable for WBC up to 28.9, gradually going up from 15 on admission. Hemoglobin stable. Platelets 41. Chemistry reviewed. Sodium is up to 148. Potassium down to 3.3, chloride 115. Creatinine is down to 1.25 from 1.67. Phos is 1.9. Procalcitonin is down to 88 from 160. Cultures E. coli is pansensitive on the blood and urine cultures. IMAGING: Chest x-ray shows persistent bilateral pulmonary edema. ASSESSMENT AND RECOMMENDATIONS: 1. Septic shock-improved. 2. Escherichia coli bacteremia and pyelonephritis with obstructing kidney stone. 3. Status post urethral stent placement for obstructing kidney stone. 4. Acute kidney injury-improving. 5. Acute encephalopathy/delirium. 6. History of dementia. 7. Thrombocytopenia. A 66-year-old woman living at a memory care facility, although supposedly with normal independent functioning presenting with back pain, found to have pyelonephritis with right hydronephrosis and obstructing stone. She was taken by Urology for urethral stent placement and subsequently became more hypotensive, requiring pressors and has been in the ICU. Pressors were weaned off yesterday, but her mental status really has not improved. Although her procalcitonin has come down and pressors were weaned off her white count continues to go up and is currently almost 30 which is doubled from her admission white count. I am going to reimage her abdomen with ultrasound looking for persistent hydronephrosis or any other signs of worsening infection. Regarding her mentation, I am starting to wonder if we need to image her head. If the ultrasound is normal, we might want to image her head with a CT scan. The E. coli in her urine and blood is pansensitive, but her white count continues to rise on ceftriaxone yesterday so she was switched back to ertapenem. For her electrolyte abnormalities and hypernatremia she is getting IV D5 water. She did get Lasix yesterday, and we are going to repeat a dose today. She is on DVT prophylaxis which will be discontinued because of her dropping platelets. Her platelet count has continued to drop. This could simply be related to sepsis, but I am going to go ahead and check DIC labs as well. CRITICAL CARE TIME: Fifty (50) minutes.
--- NOTE | 2016-12-16 12:34 | DRSVH ---
PROCEDURE: US ABDOMEN ([id number]) INDICATIONS: Hydronephrosis. TECHNIQUE: Real-time scanning was performed of the abdominal and retroperitoneal organs, with image documentatio n. COMPARISON: None. FINDINGS: Liver: Liver is normal in size and homogeneous in echotexture. Gallbladder: Gallbladder is distended. No cholelithiasis. Gallbladder is mildly thickened, with a wal l thickness of 4 mm. Biliary ducts: Intrahepatic bile ducts are non-dilated. Extrahepatic bile duct caliber measures 1.9 mm. Normal is 6-7 mm or less in diameter, or 10 mm or less post-cholecystectomy. Pancreas: Visualized portions of the pancreas are sonographically normal. Spleen: Spleen is normal in size and homogeneous in echotexture. Kidneys: Kidneys are normal in size and echotexture. Right kidney measures 13 cm long; left kidney measures 11 cm long. No hydronephrosis or nephrolithiasis. No solid masses. Aorta: Visualized aorta is normal in caliber at less than 3 cm. Iliacs: Proximal common iliac arteries are normal in caliber at less than 2.5 cm. IVC: Intrahepatic inferior vena cava is patent. Miscellaneous: No free abdominal fluid. A Todd catheter is present. No ureteral jets are seen. IMPRESSION: 1. Distended gallbladder with mild wall thickening. Clinical correlation is recommended for cholecyst itis. Negative sonographic Vega's sign. Dictated by: Gemma Jacobsen M.D. on 12/16/2016 at 12:29 Approved by: Gemma Jacobsen M.D. on 12/16/2016 at 12:32
[2016-12-16 12:47] LABS: INR 0.94 ratio
[2016-12-16] MEDS: Norepineph 8,000 mCg/250 mL NS 8,000 MCG in IV Premix 1 EACH IV SCH (19:47)
[2016-12-17] VITALS (14 sets, daily range): BP systolic 131–151; BP diastolic 70–94; PULSE 98–114; RESP 18–24; O2SAT 89–100
--- NOTE | 2016-12-17 02:24 | ABG ---
DateTimeAnalyzed 02:17:00 -_ pH ____7.354 - 7.350 7.450 pCO2 ___49.1__ -mmHg 35.0 45.0 HCO3- ___26.6__ -mmol/L 22.0 26.0 ABE ____1.3__ -mmol/L -2.0 2.0 tHb ____9.5__ -g/dL 12.0 18.0 O2Hb ___92.5__ -% COHb ____1.0__ -% 0.0 1.5 MetHb ____1.2__ -% 0.4 1.5 sO2 ___94.6__ -% FIO2 ____9.0__ -% Drawn By TLA - Date/Time Notified____ 02:23:00 -_ Oxygen Device 1 SIMP MASK - Notified By TLA - Notified Whom DR CAROL - B 752 -mmHg tO2 ___12.5__ -Vol% Zackary test _Positive -
[2016-12-17] MEDS: Ipratropium 0.02% 0.5 mg/2.5 mL Inhalation Solution NEB SCH ×4 (05:07→22:54)
[2016-12-17] MEDS: Dextrose 5% 1,000 ML IV SCH (06:37)
--- NOTE | 2016-12-17 08:17 | DRSVH ---
PROCEDURE: X-RAY CHEST ONE VIEW, PORTABLE ([id number]) INDICATIONS: RESPIRATORY FAILURE TECHNIQUE: One view of the chest was acquired. COMPARISON: [facility], CR, XR CHEST 1VW (PORTABLE), 12/14/2016, 8:08. [facility], CR, XR CHEST 1VW (PORTABLE), 12/16/2016, 6:20. FINDINGS: Surgical changes and devices: Stable positioning of right IJ CVL tube, tip projected over the mid carpenter perior vena cava. Lungs and pleura: Diffuse, widespread bilateral pulmonary interstitial and air space opacities are p resent not significantly changed from prior examination. Small layering pleural effusions. No pneum othorax. Mediastinum: Mediastinal contours appear normal. Heart size is normal. Bones and chest wall: No suspicious bony lesions. Overlying soft tissues appear unremarkable. IMPRESSION: 1. Stable positioning of right IJ CVL. 2. Pulmonary edema and/or diffuse bilateral pneumonia redemonstrated. Developing ARDS cannot be excl uded. Dictated by: Bruce MUKHERJEE Interpreted: Nehemias Gonzalez MD on 12/17/2016 at 8:06 Transcribed by: LEANDRO on 12/17/2016 at 11:17 Approved by: Nehemias Gonzalez M.D. on 12/17/2016 at 15:55
[2016-12-17] MEDS ORDERED: Potassium Phos (mEq) Inj 40 MEQ in Dextrose 5% 500 ML IV ONE (08:20)
[2016-12-17] MEDS: Pantoprazole 4 mg/mL 10 mL Inj IVPUSH SCH ×2 (09:08→16:49)
--- NOTE | 2016-12-17 09:46 | CONS ---
[address] [address] CONSULTATION REPORT PATIENT: SONI RODRIGUEZ : 1950 MR#: [id number] ADMIT: 12/13/2016 JOB ID: [id number] DATE OF SERVICE: 12/17/[address] Mayfield for this timely consult. REASON FOR CONSULTATION: Bacteremic complicated urinary tract infection. HISTORY OF PRESENT ILLNESS: The patient is a 66-year-old woman with longstanding psychiatric history. She was brought to the emergency department on December 13 because of increased confusion, back and chest pain. She lives at a [facility] because she has multiple psychiatric diagnoses and is typically unable to provide much in the way of history. That was the case again when she came through the emergency department on the except she did have some back pain as well as some chest pain and initial workup for cardiac causes of her symptomatology was negative, but a CT scan disclosed right-sided hydronephrosis with fat stranding and obvious evidence of a complicated urinary tract infection. Subsequent to this, she was taken to the operating room by Dr. Morales who placed a stent on the right side to relieve the hydronephrosis and obvious infection. I was contacted by telephone over the weekend, and we discussed antibiotic choices and decided on ertapenem because we have had so many ESBL E. coli organisms in this area recently. On this therapy the patient has improved and her dual pressor requiring septic shock has completely resolved. Oddly however her white count has continued to increase which has led to this formal Infectious Disease consult. This morning the patient is awake, but just staring straight ahead. She follows a couple commands such as opening her mouth, but otherwise is completely mute and can offer no additional history or information. What we know about this case is gleaned from review of current and past records. PAST MEDICAL HISTORY: 1. Multiple psychiatric conditions including bipolar disorder, chronic depression, and chronic pain syndrome. 2. Hypertension. 3. Chronic residence in a [facility]. SOCIAL HISTORY: The patient lives in [place] at [facility]. She does not drink or smoke, and we cannot obtain any additional social history from her. FAMILY HISTORY: Unobtainable as the patient is mute. REVIEW OF SYSTEMS: Likewise unobtainable as the patient is not speaking. PHYSICAL EXAMINATION: Reveals a woman who appears almost catatonic in that she is staring straight ahead. She will blink to threat or light in her eyes and at one point I asked her to open her mouth, and she did but that was really the only interaction we had. When a hand is placed in hers she does grasp your hands, however. She was 39.6 on admission. Her temperatures have gradually resolved and she has been afebrile for 24 hours. Currently 37.2, pulse 103, respiratory rate is about 18, blood pressure is 142/83. She was on pressors early on. She is no longer. She is still required an OxyMask to maintain saturation. Examination of the head reveals no trauma, no temporal wasting. Eyes without conjunctivitis or scleral icterus. Nose appears normal. Oral cavity has very dry crusty cracked mucous membranes throughout the oral cavity. Teeth are in poor condition. Neck reasonably supple without adenopathy. She has a central line in the right neck. Her lungs are notable for a little wheezing towards the bases. Cardiac tones regular rate and rhythm, a significant 2 or 3/6 systolic murmur is heard along the left lower sternal border and radiates across much of the precordium. Her abdomen is notable for bilateral flank tenderness, and she does call out in pain if her flank on either side is palpated with any intensity. The middle of the abdomen seems benign. There is no hepatosplenomegaly or ascites. She has a Todd catheter. Her extremities are free of synovitis, cellulitis, or significant edema. She does have good peripheral pulses. As mentioned, her neuro exam is very difficult, but she is apparently awake as she does open her mouth when asked to and she did yell in pain when her flanks were palpated, but beyond that really no participation is noted. LABORATORIES: Include white count 15,000 with 40% bands when she came in. It is now 29,000 with 7% bands which likely represents improvement. Her platelet count was 106 when she hit the ED, it is now down to 41,000. Her creatinine 1.25 today, down from a peak of 1.86 shortly after admission. LFTs are notable for an AST of 149 which is slowly rising. Normal alk phos and bilirubin, however. Albumin 2.8. Procalcitonin was an impressive 213 when she came in. It is still very high at 88, but at least it has fallen by half or more. Urinalysis 11-50 white cells, 11-50 red cells. Hep C and HIV are negative. Micro studies include positive urine and blood for an E. coli which is dowell susceptible including excellent MICs to ampicillin as well as all tested cephalosporins, carbapenems, and even tetracyclines. This organism grew from urine and blood on the . Followup blood cultures done yesterday are negative. IMAGING: Included the original abdominal pelvic CT which showed obstructive right urolithiasis with severe right hydronephrosis and fat stranding. No other notable abnormalities were seen though there was a stone seen on the left as well. A chest x-ray on admission was clear, and the patient initially did not require as much ventilatory support. Subsequently her chest x-ray is dramatically worse with bilateral rapidly evolving pulmonary infiltrates. I personally reviewed both these radiographs on the computer and there is an amazing post exchange manager the course of the last four days since the ER relatively clear film and the really terrible appearing bilateral infiltrates we see at this point. IMPRESSION: This is an unfortunate 66-year-old woman with multiple underlying psychiatric issues who resides in an institutional setting. She was admitted late on the with what was obviously complicated bacteremic urinary tract infection or what was known in the old days as urosepsis. She was weaned off her pressors and is actually improving, but it seems looking at her chest radiographs today that she is clearly developing acute respiratory distress syndrome. This goes along with her dramatic increase in oxygen requirements. In terms of her organism, her Escherichia coli is completely susceptible, and I do not think the antibiotics at this point, make a whole lot of difference and we could use even ampicillin, continue to use a carbapenem, or any cephalosporin would also be fine. I think what is going on now is that her urinary tract infection is resolving, and we are seeing more mature white cells and less bands in the periphery which accounts for the rising white count. Some of the rising white count may also be due to her evolving acute respiratory distress syndrome, which I think is about to become her pre-eminent problem. RECOMMENDATIONS: 1. I will switch the antibiotics from ertapenem to ampicillin just to be parsimonious and narrow the spectrum. There should be no difference in efficacy between any of these options. 2. I will contact the Pulmonary attending and apprise him of the current situation as I suspect this patient is headed for severe respiratory difficulties in the near future. 3. Also I have discussed this case with the patient of the [facility] Primary team here in the [facility]. 4. Will continue to follow this complex case with you.
[2016-12-17 13:05] LABS: BASOPHILS % (AUTO) 0.2 % (0-3); EOSINOPHILS % (AUTO) 0.7 % (0-5); Mean Corpuscular Hemoglobin 29.6 pg (27.0-35.0); Mean Corpuscular Volume 88.9 fL (81-100); NEUTROPHILS % (AUTO) 88.6 % (40-74); Platelet Count 42 bil/L (150-400)
[2016-12-17 13:40] LABS: Magnesium 1.6 mg/dL (1.6-2.6); Phosphorus 3.1 mg/dL (2.5-4.9)
--- NOTE | 2016-12-17 13:41 | PCM.PNMED ---
Subjective Date of Service Dec 17, 2016 Subjective Today the patient has very flat affect and is very minimally interactive, will only answer with monosyllabic phrases upon repeated direct questioning. She is cooperative with care but not at all forthcoming with information. She denies pain or discomfort, but would not respond affirmatively or negatively for the remainder of the ROS. Overnight the patient was quite somnolent, an ABG was performed due to concerns over hypercarbia but little change from prior ABG was observed. Exam Vital Signs Vital Sign - Last Date Time Temp Pulse Resp B/P Pulse Ox O2 Delivery O2 Flow Rate FiO2 12/17/16 11:58 108 19 94 OxyMask 13.00 12/17/16 11:06 36.7 149/94 Intake and Output 12/16/16 12/16/16 12/17/16 Cumulative From/Thru 15:00 23:00 07:00 12/13/16 12:26 - 12/17/16 06:27 Intake Total 1017 ml 617 ml 62251 ml Output Total 4450 ml 1350 ml 29322 ml Balance -3433 ml -733 ml 524 ml Intake Oral 0 ml 0 ml 0 ml IV Total 1017 ml 617 ml 24278 ml Output Urine Total 4450 ml 1350 ml 34947 ml Estimated Blood Loss 5 ml Other 0 ml # Bowel Movements 0 Exam Gen: Alert questionably oriented elderly woman in NAD Neck: Supple, non tender, no JVD HEENT: PERRL, EOMI, no scleral icterus CV: RRR, prominent 2-3/6 murmur best heard at LL sternal border with radiation to the axilla, no rubs or gallops Resp: Diffuse wheezing and scattered rhonchi, reduced breath sounds Abd: Patient acutely tender to palpation of her flanks, no rebound masses or guarding Extr: Mild BL LE edema, no cyanosis or clubbing Neuro: CN 2-12 grossly intact though interpretation is complicated by minimally interactive patient, no focal neurologic deficit Psych: Strange nearly catatonic flat affect, will respond to direct questioning and painful stimuli, otherwise does not make eye contact or track others around the room. IVs and Medications Medications Reviewed: Medications were reviewed in detail Lab and Diagnostics Result Diagram: 12/16/16 0600 12/16/16 06 X-Rays, CTs and MRIs Chest x-ray unremarkable Abdominal CT is notable for right ureter stone was significant moderate to severe hydronephrosis. 12-lead ECG Sinus tachycardia with right bundle branch block Assessment & Plan Oriana Hunter is a 66 year old woman with an extensive psychiatric history living in an institutionalized setting who presented with septic shock secondary to obstructive UTI s/p urostomy tube placement. Her UTI appears to be improving with treatment, however the patient's oxygen requirements have been steadily increasing with imaging suggestive of developing ARDS. Acute respiratory failure with hypoxia, POA. Active -Imaging remains highly suggestive of developing ARDS -Continued mild hypercapnia -Continue to titrate oxygen down as able. -Pulmonary has been made aware of the patient who may decompensate in the near future Escherichia coli bacteremia,POA, acute. Active -Per ID changing from Ertapenem to Ampicillin -Will continue to follow infectious indicators -WBC acutely increasing, which is likely secondary to pulmonary process Hypernatremia, Not POA, acute. Active -We will start D5W at 50 and follow carefully. Nephrolithiasis with a right obstructive hydronephrosis, POA. Active -She is status post right ureter stenting. -The plan is to continue antibiotics and hemodynamic support as well as IV fluids. -Patient with continued flank pain Pyelonephritis, POA. Active -Cultures revealed Escherichia coli, which is pansensitive. -Her white count is up, her pro-calcitonin is down -Changing Abx as above per ID recommendations Sepsis,POA, acute. Improving -Criteria initially met with leukocytosis, hypotension, elevated WBC, and likely source as UTI -Abx as above -Patient has been weaned off pressors -Continue hemodynamic monitoring Lactic acidosis, POA . resolved. -As above Abx -Normalized since presentation Acute kidney injury, POA. Improving -Treat underlying etiology of obstructive uropathy -Ureter stenting as above -Will continue to monitor Essential hypertension, POA. Stable -Currently holding home anti-hypertensives as patient was only recently on pressors -Will continue to track BP and restart home meds if HTN manifests Chronic anxiety and depression with bipolar,POA. Active -Will consider restarting home PO meds once no longer NPO -Home regimen includes Lamotrigine, Lorazepam, Prochlorperazine, Risperidone, and Venlafaxine Acute septic encephalopathy, POA. Active -Difficult to ascertain change in AMS versus baseline psych illness Disposition: Patient is a mixed picture with improving process and evolving pulmonary process, cannot accurately predict anticipated DC date given mixed picture. Pain Evaluation: Adequate Pain Control GI Prophylaxis: Proton Pump Inhibitor VTE Mechanical Devices: Intermittant Pneumatic CD Resuscitation Status: CPR: Attempt Resuscitation Attending Statement Seen in examined the patient with Dr. Pandya on December 17. I agree with all attached documentation. I participated in all aspects of medical care including physical exam and treatment plan as well as diagnostics. At this point patient is improving from regards of sepsis and her urine tract infection. Unfortunately she is developing acute respiratory failure with hypoxia likely related to ARDS. We'll continue to treat her symptomatically and support her oxygenation needs. Markus Pandya DO Dec 17, 2016 13:41 Zackary Hunter MD Dec 27, 2016 17:06
[2016-12-17] MEDS: Ampicillin Inj 2,000 MG in 0.9% Sodium Chloride 100 ML IV SCH ×2 (14:36→19:55)
[2016-12-18] VITALS (10 sets, daily range): BP systolic 112–146; BP diastolic 58–84; PULSE 100–115; RESP 14–23; O2SAT 95–98
[2016-12-18] MEDS: fentaNYL-PF 50 mCg/mL 2 mL Inj IVPUSH PRN ×2 (00:21→09:26)
[2016-12-18] MEDS: Dextrose 5% 1,000 ML IV SCH (00:21)
[2016-12-18] MEDS ORDERED: MetoCLOpramide 5 mg/mL 2 mL Inj IVPUSH ONE (01:40)
[2016-12-18] MEDS: Ampicillin Inj 2,000 MG in 0.9% Sodium Chloride 100 ML IV SCH ×4 (01:56→21:07)
[2016-12-18] MEDS: Ipratropium 0.02% 0.5 mg/2.5 mL Inhalation Solution NEB SCH ×4 (02:35→23:55)
[2016-12-18 06:51] LABS: Mean Corpuscular Hemoglobin 29.3 pg (27.0-35.0); Mean Corpuscular Volume 87.9 fL (81-100); Platelet Count 52 bil/L (150-400)
[2016-12-18 07:18] LABS: Phosphorus 1.5 mg/dL (2.5-4.9)
[2016-12-18 08:15] LABS: MONOCYTES % (AUTO) 3 % (4-12); NEUTROPHILS % (AUTO) 78 % (40-74)
[2016-12-18 08:16] LABS: BASOPHILS % (AUTO) 0 % (0-3); EOSINOPHILS % (AUTO) 3 % (0-5)
[2016-12-18] MEDS ORDERED: Potassium Phos (mEq) Inj 40 MEQ in Dextrose 5% 500 ML IV ONE (08:25)
--- NOTE | 2016-12-18 08:47 | PROG NOTE ---
[address] [address] PROGRESS NOTE PATIENT: SONI RODRIGUEZ : 1950 MR#: [id number] ADMIT: 12/13/2016 JOB ID: [id number] DATE: 12/18/2016 INFECTIOUS DISEASE FOLLOWUP NOTE: REASON FOR FOLLOWUP: Bacteremic-complicated E. coli urinary tract infection associated with ARDS. INTERVAL HISTORY: Overnight, the patient has improved somewhat. This morning she is able to answer a few questions and no longer displays the mutism that was noted during yesterday's exam. She is still not loquacious by any means. Today, she tells us she has no fevers or chills and that she has no cough. She states she was short of breath yesterday but not today. She still has some flank pain. Beyond that, she is not saying much. PHYSICAL EXAMINATION: Reveals a woman with a very flat affect who stares straight ahead but at least today answers some questions and appears to be oriented Temperature is 37, which constitutes a resolution of her fever, pulse 104, respiratory rate 22, blood pressure 142/76. She is saturating well and her oxygen has been sequentially decreased during the night. She is only on 3 L by nasal prongs now and saturating well. Eyes without conjunctivitis. Oral cavity with dry mucous membranes. Nasal oxygen is flowing. Lungs with crackles at both bases. Cardiac tones 2.5/6 murmur heard best along the lower left sternal border. Abdomen soft and nontender. There is some mild bilateral flank pain. It does not seem to be worse on either side, however. No skin rash. LABORATORIES: Include a white count stable at 31,000, still with 8% band forms. Platelets 52,000, relatively stable. Creatinine 0.69. AST is 46, ALT 66, alk phos 167. Procalcitonin is falling rapidly. It was 212, yesterday 31 and today 17, so an impressive downward trend. Blood cultures and urine grew E. coli, which was dowell susceptible. The CHEPE to ampicillin was less than 2 and for that reason, we are using ampicillin. IMAGING: Includes chest x-ray most recently done yesterday which showed what appears to be developing ARDS with bilateral infiltrates predominantly in the lower lobes. IMPRESSION: This is a critically ill woman who fortunately seems to be somewhat improved overnight. Yesterday, we were certainly concerned that she was developing adult respiratory distress syndrome on the basis of her bacteremic-complicated Escherichia coli urinary tract infection, which has already undergone stenting. This morning she is still a little short of breath but much improved and down to 3 L of supplemental oxygen. Hopefully, her course will continue to be favorable with respect to adult respiratory distress syndrome. I think her urinary tract infection is currently being very well treated and that we have the correct antibiotic in terms of ampicillin. RECOMMENDATIONS: 1. Will continue with high-dose IV ampicillin. 2. Will continue to closely watch her pulmonary status. 3. When the patient is ready for discharge she could go out on Cipro or high-dose oral amoxicillin but we are certainly some days away from that given her respiratory status.
[2016-12-18] MEDS ORDERED: Furosemide 10 mg/mL 2 mL Inj IVPUSH ONE ×2 (09:25→19:00)
[2016-12-18] MEDS: Pantoprazole 4 mg/mL 10 mL Inj IVPUSH SCH ×2 (09:30→18:25)
--- NOTE | 2016-12-18 11:13 | DRSVH ---
PROCEDURE: X-RAY CHEST ONE VIEW, PORTABLE ([id number]) INDICATIONS: fu resp distress TECHNIQUE: One view of the chest was acquired. COMPARISON: [facility], CR, XR CHEST 1VW (PORTABLE), 12/14/2016, 8:08. [facility], CR, XR CHEST 1VW (PORTABLE), 12/15/2016, 5:19. [facility], CR, XR CHEST 1VW (DEYANIRA BLE), 12/16/2016, 6:20. [facility], CR, XR CHEST 1VW (PORTABLE), 12/17/2016, 3:27. FINDINGS: Surgical changes and devices: A stable right-sided central line is seen. Lungs and pleura: Alveolar and interstitial infiltrates are seen bilaterally, which overall appear sl ightly worse compared to the 12/17/16 examination. There is blunting of the costophrenic angle seen. No pneumothorax is seen on this semiupright examination Mediastinum: Mediastinal contours appear normal. Heart size is normal. Bones and chest wall: Age-appropriate bony degenerative changes are seen. No suspicious bony lesion s. Overlying soft tissues appear unremarkable. IMPRESSION: Continued worsening of the interstitial and alveolar infiltrates, likely related to pulmo nary edema. Differential diagnosis includes atypical infection, however. Small bilateral pleural effusions. Stable right-sided central line. Dictated by: Fredy Lassiter M.D. on 12/18/2016 at 11:10 Approved by: Fredy Lassiter M.D. on 12/18/2016 at 11:11
[2016-12-18] MEDS ORDERED: Venlafaxine XR 75 mg ER24 Capsule PO SCH (13:00)
[2016-12-18] MEDS: Ondansetron 2 mg/mL 2 mL Inj IVPUSH PRN (13:35)
[2016-12-18] MEDS: lamoTRIgine 100 mg Tablet PO SCH (14:47)
[2016-12-18] MEDS: Polyethylene Glycol (PEG) 17 Gm Powder PO PRN (14:47)
[2016-12-18] MEDS: Venlafaxine XR 75 mg ER24 Capsule PO SCH ×2 (14:47→21:09)
--- NOTE | 2016-12-18 14:50 | PCM.PNMED ---
Subjective Date of Service Dec 18, 2016 Subjective Pulmonary Progress Note Oriana Hunter is a 66 year old woman with an extensive psychiatric history living in an institutionalized setting who presented with septic shock secondary to obstructive UTI s/p urostomy tube placement. Her UTI appears to be improving with treatment, however the patient's oxygen requirements have been steadily increasing with imaging suggestive of developing ARDS vs pulm edema 66 yo woman with extensive psychiatric history presenting from a memory care facility with septic shock secondary to right sided obstructive E. coli UTI s/p Urostomy tube placement. She has been appropriately treated for her sepsis, but has been having increased oxygen requirements. Overnight: Tmax 37.9c. No signifiant overnight events. Nursing notes that patient has been slightly more interactive but is compulsive and has been attempting to get out of bed. This morning, patient was pleasant and was able to answer questions in short sentences. She understands that she is in the hospital but is unsure which facility. She was able to recall the month correctly but not the day. Her primary complaint was some mild RLQ abdominal pain, back pain, and hip pain. She otherwise feels like she is doing better and does not feel short of breath. Exam Vital Signs Vital Sign - Last Date Time Temp Pulse Resp B/P Pulse Ox O2 Delivery O2 Flow Rate FiO2 12/18/16 04:39 105 19 96 OxyMask 7.00 12/18/16 03:14 37.0 115/66 Intake and Output 12/17/16 12/17/16 12/18/16 Cumulative From/Thru 15:00 23:00 07:00 12/13/16 12:26 - 12/18/16 06:28 Intake Total 1068 ml 823 ml 03937 ml Output Total 1000 ml 900 ml 96359 ml Balance 68 ml -77 ml 515 ml Intake Oral 0 ml 0 ml 0 ml IV Total 1068 ml 823 ml 79108 ml Output Urine Total 1000 ml 900 ml 87080 ml Estimated Blood Loss 5 ml Other 0 ml # Bowel Movements 0 Exam Gen: Well developed elderly female who appears in NAD. Alert, cooperative, and pleasant. Oriented x2 HEENT: PERRL, EOMI, no scleral icterus, Oropharynx with mildly dry mucosa and poor dentition Neck: Supple, non tender, no JVD noted CV: RRR, moderate systolic murmur noted Resp: Mild bilateral wheezing and scattered rhonchi, reduced breath sounds, normal respiratory effort with no accessory muscle usage. Abd: Soft, nondistended, mild pain to palpation of RLQ but no rebound, masses, or guarding noted. There is a patch of bruising on the RLQ Extr: Trace bilateral pedal edema. Distal pulses intact and equal, Neuro: Moves all extremities. MS grossly intact and equal. DTRs 2/4 and equal. Skin: Warm, dry, intact, no rashes noted. : Todd catheter in place since 12/13, draining pink urine. Psych: More alert and oriented this morning. Cooperative and answering questions appropriately, although slow to answer. Appears mildly dystonic, but no obvious s/s of dyskinesia. IVs and Medications Medications Reviewed: Medications were reviewed in detail Lab and Diagnostics Result Diagram: 12/17/16 1251 12/18/16 0630 X-Rays, CTs and MRIs PROCEDURE: X-RAY CHEST ONE VIEW, PORTABLE 12/17 Surgical changes and devices: Stable positioning of right IJ CVL tube, tip projected over the mid superior vena cava. Lungs and pleura: Diffuse, widespread bilateral pulmonary interstitial and air space opacities are present not significantly changed from prior examination. Small layering pleural effusions. No pneumothorax. Mediastinum: Mediastinal contours appear normal. Heart size is normal. Bones and chest wall: No suspicious bony lesions. Overlying soft tissues appear unremarkable. IMPRESSION: 1. Stable positioning of right IJ CVL. 2. Pulmonary edema and/or diffuse bilateral pneumonia redemonstrated. Developing ARDS cannot be excluded. 12-lead ECG Sinus tachycardia with right bundle branch block Cardiac Echo Impressions Interpretation Summary 12/14 The left ventricular cavity is small. Overall left ventricular systolic function is preserved. Difficult to accurately assess ejection fraction due to tachycardia and decreased visualization on endocardial borderlining. There are no obvious focal wall motion abnormalities noted but poor endocardial definition reduces the sensitivity for the detection of such. The right ventricle is grossly normal size. The right ventricular systolic function is normal. Pulmonary artery pressures cannot be estimated because of the lack of a measurable TR jet velocity. The left atrial size is normal. Right atrial size is normal. There is mild to moderate mitral regurgitation. There is mild aortic stenosis. The calculated aortic valve area is 1.5 cm2. The peak aortic velocity is 2.41 m/sec. There has been no significant change since the previous study. There is no other significant valvular heart disease. The aortic root is normal size. Assessment & Plan Oriana Hunter is a 66 year old woman with an extensive psychiatric history living in an institutionalized setting who presented with septic shock secondary to obstructive UTI s/p urostomy tube placement. Her UTI appears to be improving with treatment, however the patient's oxygen requirements have been steadily increasing with imaging suggestive of developing ARDS. Acute hypoxic respiratory failure, POA. Active At admission, patient was originally on 6L oxymask to maintain saturations around 97-98%. She improved to 3Liters oxymask the following day, but acutely decompensated and required 10-13L oxymask to maintain saturations. Her portable CXRs were suspicious for developing pulmonary edema vs ARDS vs atypical infection. She was diuresed with a total of 60mg of Lasix in the last 2 days. Her breathing status did improve with the diuresis and she is currently down to 3L to maintain saturations around 95% at rest. This improvement makes pulmonary edema the more likely diagnosis. Patient does not appear to have any chronic pulmonary disease in the outpatient setting. We will plan to continue diuresing her today and monitor her breathing status Sepsis Secondary to E. coli Pyelonephritis with obstructive uropathy and bacteremia, POA, Active She clinically appears to be improving, but her white count continues to be high at 31,000 with 8 bands and a mild fever last night. Her Procalcitonin continues to improve. She is now switched over to IV Ampicillin, which should work well for the pans- sensitive E. coli. She was on a Carbapenem since 12/14 and had Zosyn for 1 day prior to that. Repeat cultures are negative x 48 hours. Multiple Electrolyte abnormalities, Active She is currently on D5W due to her hypernatremia, which may be post LOTTIE related or possibly secondary to NS IVF Her potassium will need repletion with the continued diuresis. Pain Evaluation: Adequate Pain Control GI Prophylaxis: Proton Pump Inhibitor VTE Mechanical Devices: Intermittant Pneumatic CD Resuscitation Status: CPR: Attempt Resuscitation Attending Statement Patient seen, examined, and discussed with the resident. Agree with assessment and plan. WBC 31(8%bands) <-32 <-29 Plts 52 <-41 K 2.8 <-3.5 BUN 17 <-<-<-39 Cr 0.69 <-<-<-1.67 Mg <-<-1.6 Procal 17 <-31 <-88 <-161 Fibrinogen 555 <-245 <-333 Blood Cx (12/16): NGTD Nares (12/13): Negative MRSA Blood Cx (12/13): e coli (s) Urine Cx (12/13): e coli (s) CXR (12/18): pulmonary edema, tiny b/l pleural effusions, R CVC in place CT c/a/p (12/13): obstructive right urolithiasis. Negative PE, clear lungs. Assessment: -pyelonephritis and hydronephrosis 2/2 obstructing stone, s/p right ureteral stent -severe sepsis with septic shock, resolving, now off pressors. e.coli bacteremia. -LOTTIE, resolved. Likely ATN secondary to sepsis and hypotension -metabolic encephalopathy, 2/2 sepsis -hypoxic respiratory failure secondary to pulmonary edema from fluid resuscitation -thrombocytopenia -Hx of dementia, PTSD, anxiety/depression Plan: -Oxygenation improved today, though still requiring 7L O2 this am -CXR shows pulmonary edema 2/2 fluid resuscitation for sepsis. Wt still up 5kg from admission. Will diuresis more aggressively today (repeat bmp this evening) -Continue unasyn per ID. Repeat blood cx's 12/16 no growth to date -Outpt followup with urology. May need future tx for right calculus -D/c prn fentanyl and morphine -will confirm home psychiatric medications and restart once cleared for PO intake -Lines: RIJ CVC -Nutrition: PO if cleared by speech pathologist. d/c IVF -Prophylaxis: sq heparin, change protonix to PO -Code: Full -Dispo: PCU while on highflow O2 Andrew Ibanez DO Dec 18, 2016 07:47 Gordon Auguste MD Dec 18, 2016 18:27
--- NOTE | 2016-12-18 15:30 | PCM.PNMED ---
Subjective Date of Service Dec 18, 2016 Subjective The patient was slightly more interactive today, though she still did stare straight ahead and avoid eye contact for much of the interview. She was able to express that she is not in pain except when she turns or her flank is disturbed. She denies fevers, chills, nausea, vomiting, or diarrhea. The patient had Nausea overnight which was responsive to Reglan. Exam Vital Signs Vital Sign - Last Date Time Temp Pulse Resp B/P Pulse Ox O2 Delivery O2 Flow Rate FiO2 12/18/16 12:19 37.2 100 16 146/84 98 OxyMask 7.00 Intake and Output 12/17/16 12/17/16 12/18/16 Cumulative From/Thru 15:00 23:00 07:00 12/13/16 12:26 - 12/18/16 06:28 Intake Total 1068 ml 823 ml 97248 ml Output Total 1000 ml 900 ml 57638 ml Balance 68 ml -77 ml 515 ml Intake Oral 0 ml 0 ml 0 ml IV Total 1068 ml 823 ml 86145 ml Output Urine Total 1000 ml 900 ml 19827 ml Estimated Blood Loss 5 ml Other 0 ml # Bowel Movements 0 Exam Gen: Alert questionably oriented elderly woman in NAD Neck: Supple, non tender, no JVD HEENT: PERRL, EOMI, no scleral icterus CV: RRR, prominent 2-3/6 murmur best heard at LL sternal border with radiation to the axilla, there appear to be other murmurs appreciated throughout the precordium no rubs or gallops Resp: Diffuse wheezing and scattered rhonchi, reduced breath sounds Abd: Patient acutely tender to palpation of her flanks, no rebound masses or guarding Extr: Mild BL LE edema, no cyanosis or clubbing Neuro: CN 2-12 grossly intact though interpretation is complicated by minimally interactive patient, no focal neurologic deficit Psych: will respond to direct questioning and painful stimuli, otherwise does not make eye contact or track others around the room. IVs and Medications Medications Reviewed: Medications were reviewed in detail Lab and Diagnostics Item Value Date Time Red Blood Count 3.31 mil/mm3 L 12/18/16 0630 Mean Corpuscular Volume 87.9 fL 12/18/16 06 Mean Corpuscular Hemoglobin 29.3 pg 12/18/16629 Mean Corpuscular Hemoglobin Concent 33.3 % 12/18/16629 Red Cell Distribution Width 13.5 % 12/18/16629 Platelet Count 52 james/L L 12/18/16629 Lymphocytes (%) (Auto) 8 % L 12/18/16629 Monocytes (%) (Auto) 3 % L 12/18/16629 Eosinophils (%) (Auto) 3 % 12/18/16629 Basophils (%) (Auto) 0 % 12/18/16629 Band Neutrophils % 8 % H 12/18/16629 Estimat Glomerular Filtration Rate 122 mL/min 12/18/16629 Calcium Level 7.5 mg/dL L 12/18/16629 Phosphorus Level 1.5 mg/dL L 12/18/16629 Total Bilirubin 0.8 mg/dL 12/18/16629 Aspartate Amino Transf (AST/SGOT) 46 U/L 12/18/16629 Alanine Aminotransferase (ALT/SGPT) 66 U/L H 12/18/16629 Alkaline Phosphatase 167 U/L H 12/18/16629 Total Protein 5.0 g/dL L 12/18/16629 Albumin 2.6 g/dL L 12/18/16629 Triglycerides Level 216 mg/dL H 12/18/16629 Cholesterol Level 127 mg/dL 12/18/16629 LDL Cholesterol, Calculated 74.800 mg/dL 12/18/16629 VLDL Cholesterol 43.200 mg/dL 12/18/16629 HDL Cholesterol 9 mg/dL 12/18/16629 Cholesterol/HDL Ratio 14.11 H 12/18/16629 Procalcitonin 17.40 ng/mL H 12/18/16629 Result Diagram: 12/18/16 0630 12/18/16629 Microbiology Blood and urine cultures growing [place] sensitive E.coli X-Rays, CTs and MRIs X-RAY CHEST ONE VIEW, PORTABLE 12/17 IMPRESSION: 1. Stable positioning of right IJ CVL. 2. Pulmonary edema and/or diffuse bilateral pneumonia redemonstrated. Developing ARDS cannot be excluded. Dictated by: Bruce Flores RRA Interpreted: Nehemias Gonzalez MD on 12/17/2016 at 8:06 Transcribed by: LEANDRO on 12/17/2016 at 11:17 Approved by: Nehemias Gonzalez M.D. on 12/17/2016 at 15:5 . 12-lead ECG Sinus tachycardia with right bundle branch block Cardiac Echo Impressions Interpretation Summary 12/14 The left ventricular cavity is small. Overall left ventricular systolic function is preserved. Difficult to accurately assess ejection fraction due to tachycardia and decreased visualization on endocardial borderlining. There are no obvious focal wall motion abnormalities noted but poor endocardial definition reduces the sensitivity for the detection of such. The right ventricle is grossly normal size. The right ventricular systolic function is normal. Pulmonary artery pressures cannot be estimated because of the lack of a measurable TR jet velocity. The left atrial size is normal. Right atrial size is normal. There is mild to moderate mitral regurgitation. There is mild aortic stenosis. The calculated aortic valve area is 1.5 cm2. The peak aortic velocity is 2.41 m/sec. There has been no significant change since the previous study. There is no other significant valvular heart disease. The aortic root is normal size. Assessment & Plan Oriana Hunter is a 66 year old woman with an extensive psychiatric history living in an institutionalized setting who presented with septic shock secondary to obstructive UTI s/p urostomy tube placement. Her UTI appears to be improving with treatment. Her mental status is likely approaching her altered baseline, psych meds have been restarted. Acute respiratory failure with hypoxia, POA. Active -Some previous imagine suggestive of developing ARDS, appears to be more likely pulmonary edema -Continued mild hypercapnia -Continue to titrate oxygen down as able. -Pulmonary has been made aware of the patient who may decompensate in the near future Escherichia coli bacteremia,POA, acute. Active -Per ID changing from Ertapenem to Ampicillin -Will continue to follow infectious indicators -WBC remains grossly elevated, though procalc is trending down nicely Hypernatremia, Not POA, acute. Active -We will start D5W at 50 and follow carefully. Nephrolithiasis with a right obstructive hydronephrosis, POA. Active -She is status post right ureter stenting. -The plan is to continue antibiotics and hemodynamic support as well as IV fluids. -Patient with continued flank pain Pyelonephritis, POA. Active -Cultures revealed Escherichia coli, which is pansensitive. -Her white count is up, her pro-calcitonin is down -Changing Abx as above per ID recommendations Sepsis,POA, acute. Improving -Criteria initially met with leukocytosis, hypotension, elevated WBC, and likely source as UTI -Abx as above -Patient has been weaned off pressors -Continue hemodynamic monitoring Lactic acidosis, POA . resolved. -As above Abx -Normalized since presentation Acute kidney injury, POA. Improving -Treat underlying etiology of obstructive uropathy -Ureter stenting as above -Will continue to monitor Essential hypertension, POA. Stable -Currently holding home anti-hypertensives as patient was only recently on pressors -Will continue to track BP and restart home meds if HTN manifests Chronic anxiety and depression with bipolar,POA. Active -Continue home regimen Lamotrigine, Lorazepam, Prochlorperazine, Risperidone, and Venlafaxine Acute septic encephalopathy, POA. Active -Difficult to ascertain change in AMS versus baseline psych illness Disposition: Patient has some contradicting findings in that her WBC is indicative of florid infection, but all other clinical parameters suggest her UTI is being successfully treated. Difficult to estimate anticipated date of DC given ambiguity about infection status; likely 2-3 days. Pain Evaluation: Adequate Pain Control GI Prophylaxis: Proton Pump Inhibitor VTE Mechanical Devices: Intermittant Pneumatic CD Resuscitation Status: CPR: Attempt Resuscitation Attending Statement The patient was seen and examined together with Dr. Pandya on 12/18/16 and I agree with the history, exam and plan as outlined in the note above. Markus Pandya DO Dec 18, 2016 15:30 [address] Dec 18, 2016 18:41
[2016-12-18] MEDS ORDERED: KCl 40 mEq/100 mL (CENTRAL) 40 MEQ in IV Premix 1 EACH IV ONE (16:40)
[2016-12-18] MEDS: Nystatin 100,000 Unit/mL 5 mL Suspension PO SCH ×2 (18:09→21:14)
[2016-12-18] MEDS: risperiDONE 2 mg Tablet PO SCH (18:20)
[2016-12-19] MEDS: Ampicillin Inj 2,000 MG in 0.9% Sodium Chloride 100 ML IV SCH ×4 (02:42→19:56)
[2016-12-19 03:59] VITALS: BP 116/57; PULSE 109; RESP 14; O2SAT 99
[2016-12-19] MEDS: Ondansetron 2 mg/mL 2 mL Inj IVPUSH PRN ×3 (05:55→21:25)
[2016-12-19 07:09] LABS: Mean Corpuscular Hemoglobin 29.2 pg (27.0-35.0); Mean Corpuscular Volume 90.3 fL (81-100); Platelet Count 71 bil/L (150-400)
[2016-12-19 07:43] LABS: Magnesium 1.7 mg/dL (1.6-2.6); Phosphorus 2.9 mg/dL (2.5-4.9)
[2016-12-19 07:46] LABS: BASOPHILS % (AUTO) 1 % (0-3); EOSINOPHILS % (AUTO) 2 % (0-5); MONOCYTES % (AUTO) 3 % (4-12); NEUTROPHILS % (AUTO) 80 % (40-74)
[2016-12-19 08:11] VITALS: BP 112/54; PULSE 103; RESP 16; O2SAT 95
[2016-12-19] MEDS: Pantoprazole 4 mg/mL 10 mL Inj IVPUSH SCH ×2 (08:40→15:34)
[2016-12-19] MEDS: Nystatin 100,000 Unit/mL 5 mL Suspension PO SCH ×4 (08:40→19:57)
[2016-12-19] MEDS: lamoTRIgine 100 mg Tablet PO SCH (08:40)
[2016-12-19] MEDS: Venlafaxine XR 75 mg ER24 Capsule PO SCH ×2 (08:40→19:57)
--- NOTE | 2016-12-19 08:50 | PROG NOTE ---
[address] [address] PROGRESS NOTE PATIENT: SONI RODRIGUEZ : 1950 MR#: [id number] ADMIT: 12/13/2016 JOB ID: [id number] DATE: 12/19/2016 INFECTIOUS DISEASE FOLLOWUP NOTE: REASON FOR FOLLOWUP: Bacteremic-complicated E. coli urinary tract infection with recent stent placement. INTERVAL HISTORY: Overnight, the patient has dramatically improved. She is much more awake, interactive and conversant. She states she is having no fevers, no chills and no sweats. Her shortness of breath is dramatically better, though she is still on nasal oxygen. She has minimal left flank tenderness. No nausea, vomiting, or abdominal pain. PHYSICAL EXAMINATION: Reveals an afebrile woman. Temp 37.1, pulse 109, respiratory rate 14, 2 L saturating well, blood pressure 116/57. Mental status much improved. Fully interactive and oriented. Lungs relatively clear. Cardiac tones without new murmur. Abdomen soft and nontender except for some mild left flank tenderness. LABORATORIES: Include white count 21,000, 80% segs. Creatinine is 0.76. ALT 51, alk phos 168. Procalcitonin continues to come down steadily; yesterday 17, today 10. No need to continue to follow that I do not think at this point. Blood and urine cultures grew E. coli, which is dowell susceptible, and she is now receiving ampicillin IV. Chest x-ray shows dramatic clearing of her bilateral pulmonary infiltrates, which likely represent pulmonary edema. We discussed these films with the ICU attending. IMPRESSION: This is a complicated case of bacteremic-complicated Escherichia coli urinary tract infection, status post obstruction and stenting on the left. She is now dramatically improving. RECOMMENDATIONS: 1. Will continue with high-dose ampicillin at least through tomorrow. 2. Will closely watch her pulmonary status but it seems to be getting much better. 3. I would ask Urology about when to pull out her Todd which may be coming up soon. 4. The nurse is planning to continue to try and wean her supplemental nasal oxygen in preparation for discharge. 5. This case discussed with Dr. Estrada of the hospitalist team.
[2016-12-19] MEDS ORDERED: Furosemide 10 mg/mL 2 mL Inj IVPUSH ONE (09:15)
--- NOTE | 2016-12-19 10:42 | DRSVH ---
PROCEDURE: X-RAY CHEST ONE VIEW, PORTABLE ([id number]) INDICATIONS: FU pulmonary infiltrate TECHNIQUE: One view of the chest was acquired. COMPARISON: [facility], CR, XR CHEST 1VW (PORTABLE), 12/16/2016, 6:20. [facility], CR, XR CHEST 1VW (PORTABLE), 12/18/2016, 8:39. FINDINGS: Surgical changes and devices: Stable position of right IJ CVL. Lungs and pleura: Diffuse, widespread bilateral pulmonary interstitial and air space opacities are p resent decreased from prior examination. Mediastinum: Mediastinal contours appear normal. Heart size is normal. Bones and chest wall: No suspicious bony lesions. Overlying soft tissues appear unremarkable. IMPRESSION: 1. Slight decrease in pulmonary edema and/or diffuse bilateral pneumonia. Dictated by: Bruce Flores RRA Interpreted: Nehemias Gonzalez MD on 12/19/2016 at 8:54 Approved by: Nehemias Gonzalez M.D. on 12/19/2016 at 10:40
[2016-12-19 10:49] VITALS: PULSE 117
--- NOTE | 2016-12-19 14:40 | PCM.PNMED ---
Subjective Date of Service Dec 19, 2016 Subjective The patient appears much improved today from both an infectious and neurological standpoint, she is upright and more interactive and engaged than previous examinations. Her only complaint at the time of evaluation was nausea which has been responsive to Reglan. Overnight the patient had nausea which responded well to Reglan. Exam Vital Signs Vital Sign - Last Date Time Temp Pulse Resp B/P Pulse Ox O2 Delivery O2 Flow Rate FiO2 12/19/16 12:30 Supplement Oxygen 12/19/16 10:49 117 12/19/16 08:11 37.1 16 112/54 95 2.00 Intake and Output 12/18/16 12/18/16 12/19/16 Cumulative From/Thru 15:00 23:00 07:00 12/13/16 12:26 - 12/19/16 05:14 Intake Total 1531 ml 0 ml 68735 ml Output Total 2700 ml 1400 ml 26406 ml Balance -1169 ml -1400 ml -2054 ml Intake Oral 320 ml 0 ml 320 ml IV Total 1211 ml 63999 ml Output Urine Total 2700 ml 1400 ml 60625 ml Estimated Blood Loss 5 ml Other 0 ml # Bowel Movements 0 Exam Gen: A/O x3 much more interactive and engaged elderly female Neck: Supple, non tender, no JVD HEENT: PERRL, EOMI, no scleral icterus CV: RRR, prominent 2-3/6 murmur best heard at LL sternal border with radiation to the axilla, there appear to be other murmurs appreciated throughout the precordium no rubs or gallops Resp: Lungs much more clear to auscultation compared to prior exam, some mild diffuse expiratory wheezing remains Abd: Patient acutely tender to palpation of her flanks, no rebound masses or guarding Extr: Mild BL LE edema, no cyanosis or clubbing Neuro: CN 2-12 grossly intact, no focal neurologic deficit Psych: Patient retains a somewhat odd flat affect, though much more engaged compared to prior exam. . IVs and Medications Medications Reviewed: Medications were reviewed in detail Lab and Diagnostics Item Value Date Time Red Blood Count 3.59 mil/mm3 L 12/19/16 0643 Mean Corpuscular Volume 90.3 fL 12/19/16 0643 Mean Corpuscular Hemoglobin 29.2 pg 12/19/16 0643 Mean Corpuscular Hemoglobin Concent 32.4 % 12/19/16 06 Red Cell Distribution Width 14.3 % 12/19/16 0643 Platelet Count 71 james/L L 12/19/16 0643 Neutrophils (%) (Auto) 80 % H 12/19/16 0643 Lymphocytes (%) (Auto) 8 % L 12/19/16 0643 Monocytes (%) (Auto) 3 % L 12/19/16 0643 Eosinophils (%) (Auto) 2 % 12/19/16 06 Basophils (%) (Auto) 1 % 12/19/16 06 Band Neutrophils % 4 % 12/19/16 06 Myelocytes % 2 % H 12/19/16 0643 Estimat Glomerular Filtration Rate 109 mL/min 12/19/16 0643 Calcium Level 7.6 mg/dL L 12/19/16 0643 Phosphorus Level 2.9 mg/dL 12/19/16 0643 Magnesium Level 1.7 mg/dL 12/19/16 0643 Total Bilirubin 0.6 mg/dL 12/19/16 0643 Aspartate Amino Transf (AST/SGOT) 26 U/L 12/19/16 0643 Alanine Aminotransferase (ALT/SGPT) 51 U/L H 12/19/16 0643 Alkaline Phosphatase 168 U/L H 12/19/16 0643 Total Protein 5.5 g/dL L 12/19/16 0643 Albumin 2.7 g/dL L 12/19/16 0643 Procalcitonin 10.35 ng/mL H 12/19/16 0643 Result Diagram: 12/19/16 0643 12/19/16 06 Microbiology Blood and urine cultures growing Mays sensitive E.coli X-Rays, CTs and MRIs X-RAY CHEST ONE VIEW, PORTABLE 12/17 IMPRESSION: 1. Stable positioning of right IJ CVL. 2. Pulmonary edema and/or diffuse bilateral pneumonia redemonstrated. Developing ARDS cannot be excluded. Dictated by: Bruce MUKHERJEE Interpreted: Nehemias Gonzalez MD on 12/17/2016 at 8:06 Transcribed by: LEANDRO on 12/17/2016 at 11:17 Approved by: Nehemias Gonzalez M.D. on 12/17/2016 at 15:5 . 12-lead ECG Sinus tachycardia with right bundle branch block Cardiac Echo Impressions Interpretation Summary 12/14 The left ventricular cavity is small. Overall left ventricular systolic function is preserved. Difficult to accurately assess ejection fraction due to tachycardia and decreased visualization on endocardial borderlining. There are no obvious focal wall motion abnormalities noted but poor endocardial definition reduces the sensitivity for the detection of such. The right ventricle is grossly normal size. The right ventricular systolic function is normal. Pulmonary artery pressures cannot be estimated because of the lack of a measurable TR jet velocity. The left atrial size is normal. Right atrial size is normal. There is mild to moderate mitral regurgitation. There is mild aortic stenosis. The calculated aortic valve area is 1.5 cm2. The peak aortic velocity is 2.41 m/sec. There has been no significant change since the previous study. There is no other significant valvular heart disease. The aortic root is normal size. Assessment & Plan Oriana Hunter is a 66 year old woman with an extensive psychiatric history living in an institutionalized setting who presented with septic shock secondary to obstructive UTI s/p urostomy tube placement. Her UTI appears to be improving with treatment. Her mental status is likely approaching her altered baseline, psych meds have been restarted. Acute respiratory failure with hypoxia, POA. Active -Some previous imagine suggestive of developing ARDS, appears to be more likely pulmonary edema, responded well to aggressive diuresis -Continue to titrate oxygen down as able. -Pulmonary medicine has been consulted and we appreciate their expertise Escherichia coli bacteremia,POA, acute. Active -Per ID changing from Ertapenem to Ampicillin -Will continue to follow infectious indicators -WBC remains grossly elevated but downtrending, procalc is trending down nicely Nephrolithiasis with a right obstructive hydronephrosis, POA. Active -She is status post right ureter stenting. -The plan is to continue antibiotics and hemodynamic support as well as IV fluids. -Patient with continued flank pain -Will coordinate with urology on continued management Pyelonephritis, POA. Active -Cultures revealed Escherichia coli, which is pansensitive. -Her white count remains elevated her pro-calcitonin is down -Changing Abx as above per ID recommendations Sepsis,POA, acute. Improving -Criteria initially met with leukocytosis, hypotension, elevated WBC, and likely source as UTI -Abx as above -Patient has been weaned off pressors -Continue hemodynamic monitoring Lactic acidosis, POA . resolved. -As above Abx -Normalized since presentation Acute kidney injury, POA. Improving -Treat underlying etiology of obstructive uropathy -Ureter stenting as above -Will continue to monitor Essential hypertension, POA. Stable -Currently holding home anti-hypertensives as patient was only recently on pressors -Will continue to track BP and restart home meds if HTN manifests Chronic anxiety and depression with bipolar,POA. Active -Continue home regimen Lamotrigine, Lorazepam, Prochlorperazine, Risperidone, and Venlafaxine Acute septic encephalopathy, POA. Active -Difficult to ascertain change in AMS versus baseline psych illness Disposition: Patient has some contradicting findings in that her WBC is indicative of florid infection, but all other clinical parameters suggest her UTI is being successfully treated. Difficult to estimate anticipated date of DC given ambiguity about infection status; likely 1-2 days. Pain Evaluation: Adequate Pain Control GI Prophylaxis: Proton Pump Inhibitor VTE Mechanical Devices: Intermittant Pneumatic CD Resuscitation Status: CPR: Attempt Resuscitation Attending Statement The patient was seen and examined together with Dr. Pandya on 12/19/16 and I agree with the history, exam and plan as outlined in the note above. Markus Pandya DO Dec 19, 2016 14:40 Pro Estrada Dec 20, 2016 14:41
--- NOTE | 2016-12-19 15:28 | PCM.PNMED ---
Subjective Date of Service Dec 19, 2016 Subjective states breathing improved more awake alert no new complaints Exam Vital Signs Vital Sign - Last Date Time Temp Pulse Resp B/P Pulse Ox O2 Delivery O2 Flow Rate FiO2 12/19/16 12:30 Supplement Oxygen 12/19/16 10:49 117 12/19/16 08:11 37.1 16 112/54 95 2.00 Intake and Output 12/18/16 12/18/16 12/19/16 Cumulative From/Thru 15:00 23:00 07:00 12/13/16 12:26 - 12/19/16 05:14 Intake Total 1531 ml 0 ml 64090 ml Output Total 2700 ml 1400 ml 14308 ml Balance -1169 ml -1400 ml -2054 ml Intake Oral 320 ml 0 ml 320 ml IV Total 1211 ml 21761 ml Output Urine Total 2700 ml 1400 ml 72345 ml Estimated Blood Loss 5 ml Other 0 ml # Bowel Movements 0 Exam Gen: Well developed elderly female who appears in NAD. Alert, cooperative, and pleasant. Oriented x2 HEENT: PERRL, EOMI, no scleral icterus, Oropharynx with poor dentition Neck: Supple, non tender CV: RRR, moderate systolic murmur noted Resp: scattered rhonchi, improved from yesterday. Abd: Soft, nondistended Extr: Trace bilateral pedal edema. Distal pulses intact and equal, Neuro: Moves all extremities. MS grossly intact and equal. DTRs 2/4 and equal. Skin: Warm, dry, intact, no rashes noted. : Glaser catheter in place since 12/13, draining pink urine. Psych: More alert and oriented this morning. Cooperative and answering questions appropriately, although slow to answer. Lab and Diagnostics Result Diagram: 12/19/16 0643 12/19/16 0643 Microbiology Blood and urine cultures growing M[place] sensitive E.coli X-Rays, CTs and MRIs X-RAY CHEST ONE VIEW, PORTABLE 12/17 IMPRESSION: 1. Stable positioning of right IJ CVL. 2. Pulmonary edema and/or diffuse bilateral pneumonia redemonstrated. Developing ARDS cannot be excluded. Dictated by: Bruce Flores RRA Interpreted: Nehemias Gonzalez MD on 12/17/2016 at 8:06 Transcribed by: LEANDRO on 12/17/2016 at 11:17 Approved by: Nehemias Gonzalez M.D. on 12/17/2016 at 15:5 . 12-lead ECG Sinus tachycardia with right bundle branch block Cardiac Echo Impressions Interpretation Summary 12/14 The left ventricular cavity is small. Overall left ventricular systolic function is preserved. Difficult to accurately assess ejection fraction due to tachycardia and decreased visualization on endocardial borderlining. There are no obvious focal wall motion abnormalities noted but poor endocardial definition reduces the sensitivity for the detection of such. The right ventricle is grossly normal size. The right ventricular systolic function is normal. Pulmonary artery pressures cannot be estimated because of the lack of a measurable TR jet velocity. The left atrial size is normal. Right atrial size is normal. There is mild to moderate mitral regurgitation. There is mild aortic stenosis. The calculated aortic valve area is 1.5 cm2. The peak aortic velocity is 2.41 m/sec. There has been no significant change since the previous study. There is no other significant valvular heart disease. The aortic root is normal size. Assessment & Plan Blood Cx (12/16): NGTD Nares (12/13): Negative MRSA Blood Cx (12/13): e coli (s) Urine Cx (12/13): e coli (s) CXR (12/18): pulmonary edema, tiny b/l pleural effusions, R CVC in place CT c/a/p (12/13): obstructive right urolithiasis. Negative PE, clear lungs. Assessment: -pyelonephritis and hydronephrosis 2/2 obstructing stone, s/p right ureteral stent -severe sepsis with septic shock, resolving, now off pressors. e.coli bacteremia. -LOTTIE, resolved. Likely ATN secondary to sepsis and hypotension -metabolic encephalopathy, 2/2 sepsis -hypoxic respiratory failure secondary to pulmonary edema from fluid resuscitation -thrombocytopenia -Hx of dementia, PTSD, anxiety/depression Plan: -Oxygenation continues to improve, down to 3L O2 this am -CXR shows resolving pulmonary edema. Wt still up from admission. Will diuresis again today (repeat bmp this evening) -Continue unasyn per ID. Repeat blood cx's 12/16 no growth to date -Outpt followup with urology. May need future tx for right calculus. d/c glaser tomorrow -discontinued prn fentanyl and morphine -Lines: RIJ CVC (d/c soon) -Nutrition: PO, cleared by speech -Prophylaxis: sq heparin, change protonix to PO -Code: Full -Dispo: Likely ok for transfer to genmed floor tomorrow GI Prophylaxis: Proton Pump Inhibitor VTE Mechanical Devices: Intermittant Pneumatic CD Resuscitation Status: CPR: Attempt Resuscitation AugusteGordon Miner MD Dec 19, 2016 15:28
[2016-12-19 15:29] VITALS: BP 111/48; PULSE 102; RESP 16; O2SAT 96
[2016-12-19] MEDS: risperiDONE 2 mg Tablet PO SCH (16:38)
[2016-12-19 21:30] VITALS: BP 94/47; PULSE 109; RESP 11; O2SAT 97
[2016-12-19 22:58] VITALS: BP 113/47; PULSE 102; RESP 17; O2SAT 92
[2016-12-20] VITALS (9 sets, daily range): BP systolic 88–128; BP diastolic 45–84; PULSE 83–102; RESP 14–17; O2SAT 95–97
[2016-12-20] MEDS: Ampicillin Inj 2,000 MG in 0.9% Sodium Chloride 100 ML IV SCH ×4 (02:22→19:57)
[2016-12-20 05:24] LABS: Mean Corpuscular Hemoglobin 29.5 pg (27.0-35.0); Platelet Count 101 bil/L (150-400)
[2016-12-20 05:48] LABS: NEUTROPHILS % (AUTO) 76 % (40-74)
[2016-12-20 05:49] LABS: BASOPHILS % (AUTO) 0 % (0-3); EOSINOPHILS % (AUTO) 1 % (0-5); MONOCYTES % (AUTO) 2 % (4-12)
[2016-12-20 06:03] LABS: Magnesium 1.7 mg/dL (1.6-2.6); Phosphorus 2.5 mg/dL (2.5-4.9)
[2016-12-20] MEDS ORDERED: Potassium Chloride 20 mEq SR Tablet PO ONE ×2 (07:45→09:00)
[2016-12-20] MEDS ORDERED: Dextrose 5% 1,000 ML IV ONE (08:00)
--- NOTE | 2016-12-20 09:00 | PROG NOTE ---
[address] [address] PROGRESS NOTE PATIENT: SONI RODRIGUEZ : 1950 MR#: [id number] ADMIT: 12/13/2016 JOB ID: [id number] DATE: 12/20/2016 INFECTIOUS DISEASE FOLLOWUP NOTE: INTERVAL HISTORY: The patient continues to improve. She reports she has some subjective fevers, and occasionally chills, though these have not been documented by the nursing staff. She also notes she has some vague abdominal pain and has so far not had a bowel movement over the past few days. No respiratory difficulties. PHYSICAL EXAMINATION: Reveals a woman who is afebrile according to our measurements. Temperature 37.4, pulse 96, respiratory rate 14, blood pressure 88/61 during the middle of the night, saturating well on 1 L. She is awake, alert, quite perky and interactive this morning. Oral cavity negative. Lungs fairly clear. Abdomen without significant tenderness, although there is some minimal flank tenderness still present. No skin rash is noted. She has a central line, as well as a peripheral line. LABORATORIES: Include a white count which has dropped now to 15,000. Recall that it was 32,000 just three days ago. Platelet count has risen to 101,000 and her left shift is gone. Her creatinine 0.84. Her ALT is improving. It is down to 37. Procalcitonin is down to 6.5. Yesterday, it was 10. The day before it was 17 and recall we started a week ago at 213. So, a dramatic fall in her procalcitonin. Micro studies include negative followup blood cultures on the . Yesterday's chest x-ray showed decreasing pulmonary edema. Recall that we had been concerned about ARDS but yesterday's consensus when we reviewed the x-rays with the ICU team was that this was in fact pulmonary edema because it was resolving so rapidly. IMPRESSION: This is an unfortunate elderly woman who presented with bacteremic complicated Escherichia coli urinary tract infection, which required stenting on the left side. She is now improving dramatically by all parameters. RECOMMENDATIONS: 1. I would continue with high-dose IV ampicillin as long as she is in the hospital. 2. Once she is ready to leave she could be transitioned to oral amoxicillin and I would give 1 g p.o. t.i.d. to complete at least 14 days or longer if Urology prefers. 3. Given her improvement and our definitive plan for antibiotics as noted above, Infectious Disease will go ahead and sign off today but thank you very much for this interesting consult.
[2016-12-20] MEDS: Pantoprazole 20 mg ER24 Tablet PO SCH (09:50)
[2016-12-20] MEDS: Venlafaxine XR 75 mg ER24 Capsule PO SCH ×2 (09:51→19:57)
[2016-12-20] MEDS: lamoTRIgine 100 mg Tablet PO SCH (09:51)
[2016-12-20] MEDS: Polyethylene Glycol (PEG) 17 Gm Powder PO PRN ×2 (10:02→21:54)
[2016-12-20] MEDS: Nystatin 100,000 Unit/mL 5 mL Suspension PO SCH ×4 (10:21→21:58)
--- NOTE | 2016-12-20 13:24 | PCM.PNMED ---
Subjective Date of Service Dec 20, 2016 Subjective Today the patient continues to improve from an infectious and neurologic status. She was awake and alert and conversing appropriately upon evaluation today. She does complain of worsening abdominal pain which she states has been afflicting her for the past 3 days but she is just mentioning now. She states that she is otherwise feeling much better and is looking forward to returning home. No significant overnight events. Exam Vital Signs Vital Sign - Last Date Time Temp Pulse Resp B/P Pulse Ox O2 Delivery O2 Flow Rate FiO2 12/20/16 11:51 37.2 83 16 112/84 95 Nasal Cannula 1.00 12/20/16 03:53 94 Intake and Output 12/19/16 12/19/16 12/20/16 Cumulative From/Thru 15:00 23:00 07:00 12/13/16 12:26 - 12/20/16 05:24 Intake Total 793 ml 226 ml 96545 ml Output Total 600 ml 500 ml 05280 ml Balance 193 ml -274 ml -2135 ml Intake Oral 593 ml 100 ml 1013 ml IV Total 200 ml 126 ml 16640 ml Output Urine Total 600 ml 500 ml 87631 ml Estimated Blood Loss 5 ml Other 0 ml # Bowel Movements 0 Exam Gen: A/O x3 cooperative elderly woman in NAD Neck: Supple, non tender, no JVD HEENT: PERRL, EOMI, no scleral icterus CV: RRR, prominent 2-3/6 murmur best heard at LL sternal border with radiation to the axilla, there appear to be other murmurs appreciated throughout the precordium no rubs or gallops Resp: Lungs much more clear to auscultation compared to prior exam, some mild diffuse expiratory wheezing remains Abd: Patient acutely tender to palpation of her epigastric region and LLQ Extr: Mild BL LE edema, no cyanosis or clubbing Neuro: CN 2-12 grossly intact, no focal neurologic deficit Psych: Patient retains a somewhat odd flat affect, though much more engaged compared to prior exam. . IVs and Medications Medications Reviewed: Medications were reviewed in detail Lab and Diagnostics Item Value Date Time Red Blood Count 3.12 mil/mm3 L 12/20/16 0505 Mean Corpuscular Volume 92.0 fL 12/20/16 0505 Mean Corpuscular Hemoglobin 29.5 pg 12/20/16 0505 Mean Corpuscular Hemoglobin Concent 32.1 % 12/20/16 0505 Red Cell Distribution Width 14.2 % 12/20/16 0505 Neutrophils (%) (Auto) 76 % H 12/20/16 0505 Lymphocytes (%) (Auto) 21 % 12/20/16 0505 Monocytes (%) (Auto) 2 % L 12/20/16 0505 Eosinophils (%) (Auto) 1 % 12/20/16 0505 Basophils (%) (Auto) 0 % 12/20/16 0505 Estimat Glomerular Filtration Rate 97 mL/min 12/20/16 0505 Calcium Level 8.2 mg/dL L 12/20/16 0505 Phosphorus Level 2.5 mg/dL 12/20/16 0505 Magnesium Level 1.7 mg/dL 12/20/16 0505 Total Bilirubin 0.6 mg/dL 12/20/16 0505 Aspartate Amino Transf (AST/SGOT) 18 U/L 12/20/16 0505 Alanine Aminotransferase (ALT/SGPT) 37 U/L H 12/20/16 0505 Alkaline Phosphatase 143 U/L 12/20/16 0505 Total Protein 5.2 g/dL L 12/20/16 0505 Albumin 2.7 g/dL L 12/20/16 0505 Procalcitonin 6.56 ng/mL H 12/20/16 0505 Result Diagram: 12/20/16 0505 12/20/16 0505 Microbiology Blood and urine cultures growing [place] sensitive E.coli X-Rays, CTs and MRIs X-RAY CHEST ONE VIEW, PORTABLE 12/17 IMPRESSION: 1. Stable positioning of right IJ CVL. 2. Pulmonary edema and/or diffuse bilateral pneumonia redemonstrated. Developing ARDS cannot be excluded. Dictated by: Bruce Flores RRA Interpreted: Nehemias Gonzalez MD on 12/17/2016 at 8:06 Transcribed by: LEANDRO on 12/17/2016 at 11:17 Approved by: Nehemias Gonzalez M.D. on 12/17/2016 at 15:5 . 12-lead ECG Sinus tachycardia with right bundle branch block Cardiac Echo Impressions Interpretation Summary 12/14 The left ventricular cavity is small. Overall left ventricular systolic function is preserved. Difficult to accurately assess ejection fraction due to tachycardia and decreased visualization on endocardial borderlining. There are no obvious focal wall motion abnormalities noted but poor endocardial definition reduces the sensitivity for the detection of such. The right ventricle is grossly normal size. The right ventricular systolic function is normal. Pulmonary artery pressures cannot be estimated because of the lack of a measurable TR jet velocity. The left atrial size is normal. Right atrial size is normal. There is mild to moderate mitral regurgitation. There is mild aortic stenosis. The calculated aortic valve area is 1.5 cm2. The peak aortic velocity is 2.41 m/sec. There has been no significant change since the previous study. There is no other significant valvular heart disease. The aortic root is normal size. Assessment & Plan Oriana Hunter is a 66 year old woman with an extensive psychiatric history living in an institutionalized setting who presented with septic shock secondary to obstructive UTI s/p urostomy tube placement. Her UTI appears to be improving with treatment. Her mental status is likely approaching her altered baseline, psych meds have been restarted. The patient continues to incrementally improve. Acute respiratory failure with hypoxia, POA. Active -Some previous imagine suggestive of developing ARDS, appears to be more likely pulmonary edema, responded well to aggressive diuresis -Continue to titrate oxygen down as able. -Pulmonary medicine has been consulted and we appreciate their expertise Escherichia coli bacteremia,POA, acute. Active -Per ID changing from Ertapenem to Ampicillin -Will continue to follow infectious indicators -WBC is now correcting appropriately, procalc is trending down nicely Nephrolithiasis with a right obstructive hydronephrosis, POA. Active -She is status post right ureter stenting. -The plan is to continue antibiotics and hemodynamic support as well as IV fluids. -Patient with continued flank pain -Will coordinate with urology on continued management Pyelonephritis, POA. Active -Cultures revealed Escherichia coli, which is pansensitive. -Her white count remains elevated her pro-calcitonin is down -Changing Abx as above per ID recommendations Sepsis,POA, acute. Improving -Criteria initially met with leukocytosis, hypotension, elevated WBC, and likely source as UTI -Abx as above -Patient has been weaned off pressors -Continue hemodynamic monitoring Lactic acidosis, POA . resolved. -As above Abx -Normalized since presentation Acute kidney injury, POA. Improving -Treat underlying etiology of obstructive uropathy -Ureter stenting as above -Will continue to monitor Essential hypertension, POA. Stable -Currently holding home anti-hypertensives as patient was only recently on pressors -Will continue to track BP and restart home meds if HTN manifests Chronic anxiety and depression with bipolar,POA. Active -Continue home regimen Lamotrigine, Lorazepam, Prochlorperazine, Risperidone, and Venlafaxine Acute septic encephalopathy, POA. Improving -Difficult to ascertain change in AMS versus baseline psych illness Disposition: Clinical parameters suggest her UTI is being successfully treated. Will likely be able to DC in 1-2 days. Pain Evaluation: Adequate Pain Control GI Prophylaxis: Proton Pump Inhibitor VTE Mechanical Devices: Intermittant Pneumatic CD Resuscitation Status: CPR: Attempt Resuscitation Attending Statement The patient was seen and examined together with Dr. Pandya on 12/20/16 and I agree with the history, exam and plan as outlined in the note above. Markus Pandya DO Dec 20, 2016 13:24 Pro Estrada Dec 21, 2016 10:24
--- NOTE | 2016-12-20 16:42 | DRSVH ---
PROCEDURE: X-RAY CHEST ONE VIEW, PORTABLE ([id number]) INDICATIONS: fu pulmonary edema TECHNIQUE: One view of the chest was acquired. COMPARISON: [facility], CR, XR CHEST 1VW (PORTABLE), 12/19/2016, 2:53. FINDINGS: Surgical changes and devices: No change in position a right IJ CVL. Lungs and pleura: Diffuse, widespread bilateral pulmonary interstitial and air space opacities are p resent slightly decreased and less confluent involving the midright lung and right lung base compared to prior examination. Mediastinum: Mediastinal contours appear normal. Heart size is normal. Bones and chest wall: No suspicious bony lesions. Overlying soft tissues appear unremarkable. IMPRESSION: Slight decrease in edema and/or diffuse bilateral pneumonia. Dictated by: Bruce MUKHERJEE Interpreted: Sena Herzog MD on 12/20/2016 at 9:05 Approved by: Sena Herzog M.D. on 12/20/2016 at 16:40
--- NOTE | 2016-12-20 17:32 | PCM.PNSURG ---
Subjective Date of Service: Dec 20, 2016 Date of Service: Dec 20, 2016 Subjective: Patient reports mild R back pain, no nausea, no vomiting, tolerating full PO. Objective Vital Sign- Last 8 Hours Date Time Temp Pulse Resp B/P Pulse Ox O2 Delivery O2 Flow Rate FiO2 12/20/16 16:47 Supplement Oxygen 12/20/16 16:15 37.0 102 15 111/61 97 Nasal Cannula 1.00 12/20/16 16:01 Nasal Cannula 1.00 12/20/16 11:51 37.2 83 16 112/84 95 Nasal Cannula 1.00 Intake and Output- Last 8 Hour 12/20/16 Cumulative From/Thru 07:00 12/13/16 12:26 - 12/20/16 05:24 Intake Total 226 ml 18937 ml Output Total 500 ml 99244 ml Balance -274 ml -2135 ml Intake Oral 100 ml 1013 ml IV Total 126 ml 20607 ml Output Urine Total 500 ml 20864 ml Estimated Blood Loss 5 ml Other 0 ml # Bowel Movements 0 Todd catheter urine output: 900ml last 8hr. shift General: Alert, Oriented X3, Cooperative, No Acute Distress Neck: Supple Lungs: Normal Air Movement Abdomen: Soft, Non-tender, Non-distended, Other (Back: no costovertebral angle tenderness) Neuro: Normal Speech, Sensation Intact Catheters: Urethral 2 Way Todd (in place, draining clear yellow urine) Result Diagram: 12/20/16 0505 12/20/16 0505 Lab & Micro Results: Cx: 12/13/16: urine Cx E. coli (dowell-sensitive, including to Ampicillin), blood Cx E. coli (dowell-sensitive, including to Ampicillin) 12/16/16: blood Cx negative to date Diagnostics: Abdominal U/S (12/16/16): no hydronephrosis, no nephrolithiasis Assessment & Plan Impression R ureteral calculus, R hydronephrosis, UTI, septic shock, and bacteremia, s/p cystoscopy and R ureteral stent placement on 12/13, significantly improved post- op, with resolved fever (no fever for 3 days), resolved hypotension (off pressors), and good urine output, with abdominal U/S on 12/16 showing no hydronephrosis (resolved R hydronephrosis), with normalized lactate on 12/15, with labs this AM showing improved WBC (15.6) and normalized Cr (0.84), with significantly improved mental status post-op, with mild R back pain (likely secondary to stent colic). The patient may be able to pass the R ureteral calculus with hydration and Flomax; however, if she is not able to pass the calculus, she will need treatment of the calculus in the future after her infection has completely resolved. Problems: Plan Recommend continuing Abx (Ampicillin), as per ID Dr. Fabian. Agree with 14- day course of Abx. Recommend PO fluid hydration Strain all urine Todd catheter can be removed when not needed for medical management Recommend continuing to follow labs (including WBC, Cr, lytes) and blood Cx Recommend starting Flomax, Ditropan PRN bladder spasms/urinary urgency, and Reserve PRN, which I have ordered When patient is discharged from the hospital, recommend that patient be discharged on Flomax, Ditropan, Abx, and pain meds and with a urine strainer and that patient follow-up with me in the office 2 weeks after discharge (with KUB X-ray prior to appt.). Please contact me when patient is being discharged, so that her office appointment with me can be scheduled Please do not hesitate to contact me with any questions or concerns about this patient Resuscitation Status: CPR: Attempt Resuscitation Dale Morales MD Dec 20, 2016 17:32 Dale Morales MD Dec 20, 2016 17:32 Dale Morales MD Dec 20, 2016 17:32
[2016-12-20] MEDS: risperiDONE 2 mg Tablet PO SCH (17:45)
[2016-12-20] MEDS ORDERED: HYDROcodone-APAP 5-325 mg Tablet PO PRN (18:55)
--- NOTE | 2016-12-20 20:21 | DRSVH ---
PROCEDURE: CT ABDOMEN AND PELVIS WITH CONTRAST ([id number]) INDICATIONS: abd pain TECHNIQUE: After the administration of oral and intravenous contrast, 5 mm thick sections acquired from the diap hragms to the symphysis. 5 mm thick coronal and sagittal reformats were performed. For radiation do se reduction, the following was used: automated exposure control, adjustment of mA and/or kV accordi ng to patient size. COMPARISON: None. FINDINGS: Image quality: Excellent. ABDOMEN: Lung bases: There is some patchy density in the right lung in the nondependent portion suggesting evin e airspace disease. There are bilateral pleural effusions. Heart size is normal. Solid organs: Liver and spleen are normal in size and enhancement. Gallbladder is mildly contracted but considered normal. Biliary system is non-dilated. Pancreas enhances normally. No adrenal nodu les. Kidneys are normal in size and enhancement, without hydronephrosis. There is a 4 mm central non obstructing stone in the left kidney. There is a pigtail catheter in the right kidney extending from the bladder into the renal pelvis. There is a possible stone adjacent to the catheter in the ureter o f approximately 3 mm size and series 2 image 73. No other stones are seen as suggested in the right k idney or ureter. There is a Todd catheter into the bladder Peritoneum and bowel: Stomach, small bowel, and colon loops are normal in caliber and wall thickness . No free fluid or air. The appendix is not seen. Scattered colonic diverticula are present. Nodes and vessels: No retroperitoneal or mesenteric adenopathy. Aorta and inferior vena cava are no rmal in caliber. Miscellaneous: No ventral hernias. PELVIS: Genitourinary: Bladder wall thickness is normal. Miscellaneous: No inguinal hernias or adenopathy. Bones: No suspicious bony lesions. No vertebral body compression fractures. There is some strandin g in the subcutaneous tissues along the left anterolateral aspect of the right hip. Is there any clin ical evidence to suggest gluteus tendinosis or tendinitis change on the right. IMPRESSION: Pigtail catheter on the right appropriate in position. Question of small stone adjacent to the distal catheter on this image set on this series 2 image 73. Small nonobstructing stone centrally in the left kidney. Question of some edema around gluteus muscle on the right compared to the left in the attachment to t he greater trochanter. Todd catheter, colonic diverticula, bilateral pleural effusions and question of minimal patchy right lung pneumonia. Dictated by: Ankur Dong M.D. on 12/20/2016 at 20:07 Approved by: Ankur Dong M.D. on 12/20/2016 at 20:19
[2016-12-21] MEDS: Ampicillin Inj 2,000 MG in 0.9% Sodium Chloride 100 ML IV SCH ×2 (02:23→08:53)
[2016-12-21 03:07] VITALS: PULSE 88; O2SAT 95
[2016-12-21 04:46] VITALS: PULSE 95
[2016-12-21] MEDS: Ondansetron 2 mg/mL 2 mL Inj IVPUSH PRN (06:22)
[2016-12-21] MEDS: Pantoprazole 20 mg ER24 Tablet PO SCH (06:22)
[2016-12-21 06:44] LABS: BASOPHILS % (AUTO) 0.3 % (0-3); MONOCYTES % (AUTO) 5.7 % (4-12); Mean Corpuscular Hemoglobin 29.5 pg (27.0-35.0); Mean Corpuscular Volume 93.1 fL (81-100); NEUTROPHILS % (AUTO) 76.3 % (40-74); Platelet Count 136 bil/L (150-400)
[2016-12-21 06:54] LABS: INR 0.97 ratio
[2016-12-21 07:05] LABS: Magnesium 1.6 mg/dL (1.6-2.6); Phosphorus 2.7 mg/dL (2.5-4.9)
[2016-12-21 07:29] VITALS: PULSE 90
[2016-12-21] MEDS ORDERED: Potassium Chloride 20 mEq SR Tablet PO ONE (07:50)
[2016-12-21 08:30] VITALS: BP 105/39; PULSE 93; RESP 11; O2SAT 92
[2016-12-21] MEDS: Venlafaxine XR 75 mg ER24 Capsule PO SCH (08:55)
[2016-12-21] MEDS: lamoTRIgine 100 mg Tablet PO SCH (08:56)
[2016-12-21] MEDS: Nystatin 100,000 Unit/mL 5 mL Suspension PO SCH (08:57)
[2016-12-21] MEDS ORDERED: Magnesium Hydroxide 10 mL Oral Concentration PO ONE (09:05)
--- NOTE | 2016-12-21 10:27 | PCM.DIMED ---
Discharge Instructions Date of Service Dec 21, 2016 Dates of Hospitalization Dec 13, 2016 at 15:59 Discharge Diagnosis Discharge Diagnosis Acute respiratory failure with hypoxia, POA. Active Escherichia coli bacteremia,POA, acute. Active Nephrolithiasis with a right obstructive hydronephrosis, POA. Active Pyelonephritis, POA. Active Sepsis,POA, acute. Improving Lactic acidosis, POA . resolved. Acute kidney injury, POA. Improving Essential hypertension, POA. Stable Chronic anxiety and depression with bipolar,POA. Active Acute septic encephalopathy, POA. Improving . Medication Instructions Additional med instructions We are sending you home on an antibiotic that you should continue to take for 5 more days until the bottle is empty. We will also send you with some medications that will allow you to pass your kidney stone more easily, Flomax and Ditroban Diet Discharge Diet: No restrictions Activity Discharge Activity: Limited until seen by PCP Call your provider Call your provider for: Fever or Chills, Shortness of breath, Bleeding, Chest pain, Vomitting, Excessive diarrhea, Weakness (unilateral) Patient Instructions Follow-up plan Follow up with your primary care provider within 1 week Follow up with Dr. Morales from Urology in 2 weeks Follow-up Provider: Zackary Hunter MD Follow-up with PCP in: 1 week Provider: Dale Morales MD Follow-up in: 2 weeks (I have called and contacted his nurse who is making an appointment) Markus Pandya DO Dec 21, 2016 10:27
[2016-12-21] MEDS ORDERED: TAMS0.4C98 PO (10:31)
[2016-12-21] MEDS ORDERED: AMOX500T2 PO (10:31)
[2016-12-21 12:22] VITALS: BP 123/71; PULSE 94; RESP 14; O2SAT 98
--- NOTE | 2016-12-21 17:59 | PCM.DC.MED ---
Discharge Summary Date of Service Dec 21, 2016 Dates of Hospitalization Date of Hospital Admission Dec 13, 2016 at 15:59 Date of Discharge: Dec 21, 2016 Providers: Admitting Physician: Zackary Hunter MD Primary Care Physician: Zackary Hunter MD Attending Physician: Pro Estrada Diagnosis at Time of Discharge Diagnosis at Time of Discharge Acute respiratory failure with hypoxia, POA. Active Escherichia coli bacteremia,POA, acute. Active Nephrolithiasis with a right obstructive hydronephrosis, POA. Active Pyelonephritis, POA. Active Sepsis,POA, acute. Improving Lactic acidosis, POA . resolved. Acute kidney injury, POA. Improving Essential hypertension, POA. Stable Chronic anxiety and depression with bipolar,POA. Active Acute septic encephalopathy, POA. Improving . Consultations Infectious disease with Dr. Fabian Urology with Dr. Morales Pulmonary critical care with Dr. Candelario and Dr. Gutierrez Procedures XRay, CTs & MRIs X-RAY CHEST ONE VIEW, PORTABLE 12/17 IMPRESSION: 1. Stable positioning of right IJ CVL. 2. Pulmonary edema and/or diffuse bilateral pneumonia redemonstrated. Developing ARDS cannot be excluded. Dictated by: Bruce Flores RRA Interpreted: Nehemias Gonzalez MD on 12/17/2016 at 8:06 Transcribed by: LEANDRO on 12/17/2016 at 11:17 Approved by: Nehemias Gonzalez M.D. on 12/17/2016 at 15:5 . ECG 12 Lead Sinus tachycardia with right bundle branch block Cardiac Echo Impression Interpretation Summary 12/14 The left ventricular cavity is small. Overall left ventricular systolic function is preserved. Difficult to accurately assess ejection fraction due to tachycardia and decreased visualization on endocardial borderlining. There are no obvious focal wall motion abnormalities noted but poor endocardial definition reduces the sensitivity for the detection of such. The right ventricle is grossly normal size. The right ventricular systolic function is normal. Pulmonary artery pressures cannot be estimated because of the lack of a measurable TR jet velocity. The left atrial size is normal. Right atrial size is normal. There is mild to moderate mitral regurgitation. There is mild aortic stenosis. The calculated aortic valve area is 1.5 cm2. The peak aortic velocity is 2.41 m/sec. There has been no significant change since the previous study. There is no other significant valvular heart disease. The aortic root is normal size. Brief History Taken from History and Physical composed on 12/13/16 This is a 66-year-old female who presented to the emergency room for back and chest pain today. She comes from an assisted living facility, where the heart use. She has been there for some time and has multiple psychiatric diagnoses including bipolar and PTSD as well as chronic anxiety and depression. She is a very vague historian and unable to answer many questions but does note that she was having severe back pain which is described midline starting today. She also had some chest pain. She was sent to the emergency department by ambulance and there was found to be hypotensive and slightly diaphoretic and pale in appearance. An ECG was obtained to rule out ACS was unremarkable and Nitropaste was placed on her chest and she did improve. Troponins were unremarkable ultimately urine dip was positive with infection and the CT indicated obstructive kidney stone consistent with hydronephrosis. She was given 2 L of fluid for relative hypotension and Zosyn 3.375 g IV. The case was discussed with urology, Dr. Morales, who requested nothing by mouth status for probable cystoscopy and stent placement later this afternoon. The patient cannot state what year it is. She does know she is at the hospital but says [facility]. She does have a cold with her indicating resuscitation and full level of treatment. Subjective not otherwise obtainable. . Hospital Course Oriana Hunter is a 66 year old woman with an extensive psychiatric history living in an institutionalized setting who presented with septic shock secondary to obstructive UTI s/p urostomy tube placement. The patient was quite hypotensive following stent placement so was briefly transferred to the ICU for IV pressors to maintain blood pressure. She had a somewhat protracted recovery process post surgically in which her mental status and affect were bordering on catatonia. She did eventually clear up and was able to pass a swallow evaluation and begin receiving her normal PO psych meds, thereafter she made good progress and at the time of discharge was alert and oriented. Acute respiratory failure with hypoxia, POA. Active -Was initially suspected to by ARDS, but more likely this was due to pulmonary edema following fluid resuscitation intra operatively -Continued to titrate oxygen down as able. -Pulmonary medicine was consulted and we appreciated their expertise Escherichia coli bacteremia,POA, acute. Active -Per ID changing from Ertapenem to Ampicillin -Upon discharge this was converted to Augmentin for a further 6 days of treatment -WBC and procalcitonin were trending down nicely at the time of discharge Nephrolithiasis with a right obstructive hydronephrosis, POA. Active -She is status post right ureter stenting. -Continue antibiotics, was given aggressive fluid resuscitation until pulmonary edema manifested -Patient with continued flank pain -Patient has yet to pass stone, she was instructed to continue to strain her urine -Will coordinate with urology on continued management Pyelonephritis, POA. Active -Cultures revealed Escherichia coli, which is pansensitive. -antibiotics per ID recommendations, discharged on Augmentin Sepsis,POA, acute. Improving -Criteria initially met with leukocytosis, hypotension, elevated WBC, and likely source as UTI -Abx as above -Patient was weaned off pressors -Continued hemodynamic monitoring Lactic acidosis, POA . resolved. -As above Abx -Normalized since presentation Acute kidney injury, POA. Improving -Treated underlying etiology of obstructive uropathy -Ureter stenting as above -Continued to monitor Essential hypertension, POA. Stable -Held home anti-hypertensives as patient was only recently on pressors -Home meds restarted upon discharge Chronic anxiety and depression with bipolar,POA. Active -Continued home regimen Lamotrigine, Lorazepam, Prochlorperazine, Risperidone, and Venlafaxine when patient was able to tolerate PO meds Acute septic encephalopathy, POA. Improving -Difficult to ascertain change in AMS versus baseline psych illness -At the time of discharge the patient appeared to be at or near her baseline mentation . Exam Vital Signs (Last) Date Time Temp Pulse Resp B/P Pulse Ox O2 Delivery O2 Flow Rate FiO2 12/21/16 13:08 Room Air 12/21/16 12:22 37.0 94 14 123/71 98 12/21/16 03:07 1.00 12/20/16 03:53 94 Exam Gen: A/O x3 cooperative elderly woman in NAD Neck: Supple, non tender, no JVD HEENT: PERRL, EOMI, no scleral icterus CV: RRR, prominent 2-3/6 murmur best heard at LL sternal border with radiation to the axilla, there appear to be other murmurs appreciated throughout the precordium no rubs or gallops Resp: Lungs much more clear to auscultation compared to prior exam, some mild diffuse expiratory wheezing remains Abd: Patient acutely tender to palpation of her epigastric region and LLQ Extr: Mild BL LE edema, no cyanosis or clubbing Neuro: CN 2-12 grossly intact, no focal neurologic deficit Psych: Patient retains a somewhat odd flat affect, though much more engaged compared to earlier in hospital course Test 12/13/16 12:25 12/13/16 14:30 12/13/16 21:15 12/14/16 00:37 Troponin T < 0.010ug/L (0.0-0.011) Pro-B-Type Natriuretic Peptide 3261pg/mL (0-301) Lipase 20U/L (13-60) Hold Joel Top Tube Received (Received) Urine Color Dark yellow (YELLOW) Urine Appearance Hazy (CLEAR,HAZY) Urine pH 6.0 (5.0-8.0) Urine Specific [place] 1.010 (1.003-1.035) Urine Protein 30mg/dL (NEG,TRACE) Urine Glucose (UA) Negativemg/dL (NEGATIVE) Urine Ketones Negativemg/dL (NEGATIVE) Urine Occult Blood Large (NEGATIVE) Urine Nitrite Positive (NEGATIVE) Urine Bilirubin Negative (NEGATIVE) Urine Urobilinogen Normalmg/dL (NORMAL) Urine Leukocyte Esterase Small (NEGATIVE) Urine RBC 11-50/hpf (0-2) Urine WBC 11-50/hpf (0-5) Urine Epithelial Cells Occasional/hpf (NONE-MOD) Urine Crystals None seen (NONE SEEN) Urine Bacteria Many/hpf (NONE-FEW) Urine Hyaline Casts None/lpf (NONE) Urine Granular Casts None seen (NONE SEEN) Urine Waxy Casts None seen (NONE SEEN) Urine Red Blood Cell Casts None seen (NONE SEEN) Urine White Blood Cell Casts None seen (NONE SEEN) Urine Mucus Present (None Seen) Urine Trichomonas None seen (NONE SEEN) Urine Yeast None (NONE SEEN) Urinalysis Comment None Urine Culture Reflexed Indicated Hold Purple Top Tube Received (Received) Hold [place] Top Tube Received (Received) Metamyelocytes % 1% (0-0) Test 12/14/16 14:30 12/15/16 04:10 12/15/16 10:15 12/16/16 12:00 Hepatitis C Antibody <0.1s/co ratio (0.0-0.9) HIV (1&2) Ag and Ab, 4th Generation Non reactive (Non Reactive) Lactic Acid Level 1.7mmol/L (0.4-2.0) Heparin-PF4 Ab Optical Density 0.039OD (<0.4) Heparin-PF4 Antibody Interpretation Not indicated Fibrinogen 555mg/dL (157-380) Test 12/17/16 13:48 12/18/16 06:30 12/19/16 06:43 12/21/16 06:00 Triglycerides Level 216mg/dL (0-149) Cholesterol Level 127mg/dL (100-199) LDL Cholesterol, Calculated 74.800mg/dL (0-99) VLDL Cholesterol 43.200mg/dL HDL Cholesterol 9mg/dL (>39) Cholesterol/HDL Ratio 14.11 (0.0-4.4) Band Neutrophils % 4% (1-5) Myelocytes % 2% (0-0) Hematology Comments Rbc White Blood Count 12.2th/mm3 (3.8-10.1) Red Blood Count 2.75mil/mm3 (3.90-5.20) Hemoglobin 8.1g/dL (12.0-15.6) Hematocrit 25.6% (35.0-46.0) Mean Corpuscular Volume 93.1fL (81-100) Mean Corpuscular Hemoglobin 29.5pg (27.0-35.0) Mean Corpuscular Hemoglobin Concent 31.6% (32.0-37.0) Red Cell Distribution Width 14.6% (12.3-15.4) Platelet Count 136bil/L (150-400) Neutrophils (%) (Auto) 76.3% (40-74) Lymphocytes (%) (Auto) 12.4% (14-46) Monocytes (%) (Auto) 5.7% (4-12) Eosinophils (%) (Auto) 3.0% (0-5) Basophils (%) (Auto) 0.3% (0-3) Prothrombin Time 10.4sec (8.1-12.5) Prothromb Time International Ratio 0.97ratio Sodium Level 142mEq/L (134-144) Potassium Level 3.2mEq/L (3.5-5.2) Chloride Level 104mEq/L (97-108) Carbon Dioxide Level 26mmol/L (18-29) Blood Urea Nitrogen 15mg/dL (8-27) Creatinine 0.81mg/dL (0.57-1.00) Estimat Glomerular Filtration Rate 101mL/min (>59) Glucose Level 132mg/dL (60-99) Calcium Level 8.2mg/dL (8.5-10.1) Phosphorus Level 2.7mg/dL (2.5-4.9) Magnesium Level 1.6mg/dL (1.6-2.6) Total Bilirubin 0.4mg/dL (0.0-1.2) Aspartate Amino Transf (AST/SGOT) 19U/L (0-50) Alanine Aminotransferase (ALT/SGPT) 29U/L (0-32) Alkaline Phosphatase 123U/L (25-165) Total Protein 5.1g/dL (6.4-8.4) Albumin 2.2g/dL (3.4-5.0) Procalcitonin 3.51ng/mL (0.00-0.08) Microbiology Results Blood and urine cultures growing [place] sensitive E.coli Discharge Medications Discharge Medications Amlodipine (Amlodipine) 5 Mg Tablet 5 MG PO QAM (Reported) Amoxicillin (Amoxicillin) 500 Mg Tablet 1,000 MG PO TID Prescribed by: GIRISH PANDYA DO Lamotrigine (Lamotrigine) 200 Mg Tablet 200 MG PO QAM (Reported) Lorazepam (Lorazepam) 0.5 Mg Tablet 0.5 MG PO BIDWM (Reported) Meloxicam (Meloxicam) 7.5 Mg Tablet 7.5 MG PO DAILYWM (Reported) Montelukast (Montelukast) 10 Mg Tablet 10 MG PO DAILYWD (Reported) Omeprazole (Omeprazole) 20 Mg Capsule.dr 20 MG PO QAM (Reported) Oxybutynin Chloride (Oxybutynin Chloride) 5 Mg Tablet 5 MG PO DAILYWD (Reported ) Pravastatin (Pravachol) 20 Mg Tab 20 MG PO DAILYWD (Reported) Prazosin (Prazosin) 1 Mg Capsule 1 MG PO DAILYWD (Reported) Risperidone (Risperidone) 2 Mg Tablet 2 MG PO DAILYWD (Reported) Tamsulosin (Flomax) 0.4 Mg Capsule 0.4 MG PO HS Prescribed by: GIRISH PANDYA DO Topiramate (Topiramate) 50 Mg Tablet 50 MG PO BIDWM (Reported) Trazodone (Trazodone) 100 Mg Tablet 200 MG PO HS (Reported) Venlafaxine ER (Effexor XR) 75 Mg Cap.er.24h 75 MG PO QAM (Reported) TAKE WITH 150 MG CAP Venlafaxine ER (Effexor XR) 150 Mg Cap.er.24h 150 MG PO QAM (Reported) TAKEN WITH 75 MG CAP As needed Acetaminophen (Acetaminophen) 325 Mg Tablet 325-650 MG PO Q4 PRN PRN For Pain ( Reported) Albuterol HFA (Proair HFA) 8.5 Gm Hfa.aer.ad 2 PUFFS IH Q4 PRN PRN For Shortness of Breath (Reported) Aspirin/Acetaminophen/Caffeine (Witkfra-Tpsavknsfetqj-Eluv Tab) 250 Mg-250 Mg- 65 Mg Tablet 1 EACH PO Q6H PRN PRN For Headache (Reported) Calcium Carbonate (Tums) 500 Mg Tab.chew 1,000 MG PO Q4H PRN PRN For Dyspepsia or Heartburn (Reported) Docusate Sodium (Colace) 100 Mg Capsule 100 MG PO HS PRN PRN For Constipation ( Reported) Loperamide (Loperamide) 2 Mg Capsule 2 MG PO Q4 PRN PRN For Diarrhea or Loose Stool (Reported) Prochlorperazine Maleate (Prochlorperazine) 10 Mg Tablet 10 MG PO Q12H PRN PRN For Nausea/Vomiting (Reported) Sennosides (Senna) 8.6 Mg Tablet 8.6 MG PO DAILY PRN PRN For Constipation ( Reported) diphenhydrAMINE HCl (Benadryl) 25 Mg Capsule 50 MG PO DIRECTED PRN PRN PEANUT EXPOSURE (Reported) oxyCODONE-Acetaminophen 5-325 mg (oxyCODONE-Acetaminophen 5-325 mg) 1 Each Tablet 0.5-1 TAB PO Q8H PRN PRN For Pain (Reported) Additional med instructions We are sending you home on an antibiotic that you should continue to take for 5 more days until the bottle is empty. We will also send you with some medications that will allow you to pass your kidney stone more easily, Flomax and Ditroban Followup Plan Disposition: Return back to [facility] Follow-up plan Follow up with your primary care provider within 1 week Follow up with Dr. Morales from Urology in 2 weeks Discharge Diet: No restrictions Discharge Activity: Limited until seen by PCP Follow-up Provider: Zackary Hunter MD Follow-up with PCP in: 1 week Provider: Dale Morales MD Follow-up in: 2 weeks (I have called and contacted his nurse who is making an appointment) Time spent Time spent planning and coordinating discharge greater than 35 minutes Attending Statement The patient was seen and examined together with Dr. Pandya on 12/21/16 and I agree with the history, exam and plan as outlined in the note above. copies to: Dale Morales MD; Zackary Hunter MD, David E DO Dec 21, 2016 17:59 Pro Estrada Dec 21, 2016 18:19
== END 2016-12-21 15:20 | DRG 871 ==
LOC: EDBD 12:11 → SED 12:11 → PCC 15:59 → CCU 21:37 → PCC 12-15 16:28
PROVIDERS: ADMIT Hospitalist; ATTEND Hospitalist
PROC: 4A033R1 Measurement of Arterial Saturation, Peripheral, Percutaneous Approach (ICD-10-PCS; 2016-12-13)
PROC: 02HV33Z Insertion of Infusion Device into Superior Vena Cava, Percutaneous Approach (ICD-10-PCS; 2016-12-13)
PROC: 0T768DZ Dilation of Right Ureter with Intraluminal Device, Via Natural or Artificial Opening Endoscopic (ICD-10-PCS; principal; 2016-12-13 17:30)
DX: A41.51 Sepsis due to Escherichia coli [E. coli] (principal); R65.21 Severe sepsis with septic shock; G93.41 Metabolic encephalopathy; J96.01 Acute respiratory failure with hypoxia; N17.0 Acute kidney failure with tubular necrosis; J81.0 Acute pulmonary edema; N13.6 Pyonephrosis; E87.2 Acidosis; E87.0 Hyperosmolality and hypernatremia; F03.91 Unspecified dementia, unspecified severity, with behavioral disturbance; F31.9 Bipolar disorder, unspecified; B96.20 Unspecified Escherichia coli [E. coli] as the cause of diseases classified elsewhere; I10 Essential (primary) hypertension; E11.9 Type 2 diabetes mellitus without complications; E83.42 Hypomagnesemia